=== PATIENT | male | born 1990 | race Caucasian/White ===

== ENCOUNTER 2020-03-14 18:26 | Emergency (ER) | payer OTHER, SELFPAY ==
[2020-03-14 18:36] VITALS: BP 159/91; PULSE 86; RESP 18; TEMP 37.1; O2SAT 98; BMI 32.0
--- NOTE | 2020-03-14 22:02 | ED.SKABFB ---
HPI - Skin/Abscess/Foreign Bdy General Chief complaint: Skin/Abscess/Foreign Body Stated complaint: abscess Time Seen by Provider: 03/14/20 22:02 Source: patient Mode of arrival: ambulatory Limitations: no limitations History of Present Illness HPI narrative: patient noticed small swelling in perineum area for last 5 days getting worse without significant redness or pus discharge history of pilonidal abscess in the past but never had any abscess in perineal area patient denies any fever MD complaint: abscess/boil Onset (ago): day(s) (5) Severity: mild Related Data Previous Rx's Medication Instructions Recorded amoxicillin-pot clavulanate 1 tab PO BID #20 tab 03/14/20 [Augmentin] doxycycline hyclate 100 mg PO BID #20 cap 03/14/20 ibuprofen 600 mg PO Q6-8H PRN #30 tab 03/14/20 Allergies Allergy/AdvReac Type Severity Reaction Status Date / Time diclofenac [DICLOFENAC] Allergy Unknown SHORTNESS Verified 03/14/20 18:39 OF BREATH Review of Systems Review of Systems: Yes all other systems are reviewed and are negative Constitutional: Constitutional: Reports no additional constitutional complaints, Denies body ache(s), Denies chills and Denies fever(s) PMFSH Past Medical History Medical History No known health problems Social History Social History Smoked in Last 30 Days: No Use of substances other than those prescribed or required for medical reasons: No Advance Directives: No Advance Directives Information Provided: No Physical Exam Vital Signs and I&O and Narrative: Vital Signs and I&O: Vital Signs Temp 98.8 F 03/14/20 18:36 Pulse 86 03/14/20 18:36 Resp 18 03/14/20 18:36 BP 159/91 H 03/14/20 18:36 Pulse Ox 98 03/14/20 18:36 Intake & Output 03/14/20 03/14/20 03/15/20 06:59 18:59 06:59 Weight 110 kg Body Mass Index 32.0 Const: General: cooperative Nutritional Appearance: average body habitus Orientation/consciousness: oriented to person, oriented to place and oriented to time Limitations: no limitations Resp: Effort & Inspection: normal respiratory effort Auscultation: clear to auscultation bilaterally Cardio: Rate: regular rate Rhythm: regular rhythm Heart sounds: S1 normal heart sound present and S2 normal heart sound present Skin: Other: small 1 x 1 cm indurated swelling in perineum area at the base of scrotum without any fluctuancy or open wounds Neuro: General: oriented to person, oriented to place and oriented to time Gait exam (Neuro): Normal gait present Course Course Course Narrative: patient with small indurated area in perineum not fluctuant at this time will give him course of p.o. antibiotic doxycycline and Augmentin ,advised to come back to the ER or follow-up with surgeon if pain continues or gets worse Discharge Plan Discharge Clinical Impression: Abscess of skin or subcutaneous tissue Patient Disposition: Home, Self-Care Instructions: Abscess (ED) Additional Instructions: take antibiotics as prescribed. Follow-up with surgeon. Report to ER if worsening of pain or swelling tome antibi?ticos seg?n lo prescrito. Seguimiento con cirujano. Informe a la justice de emergencias si el dolor o la hinchaz?n empeoran Prescriptions: New doxycycline hyclate 100 mg capsule 100 mg PO BID Qty: 20 RF: 0 amoxicillin-pot clavulanate [Augmentin] 875-125 mg tablet 1 tab PO BID Qty: 20 RF: 0 ibuprofen 600 mg tablet 600 mg PO Q6-8H PRN (Reason: pain) Qty: 30 RF: 0 Referrals: Francisco Myrick MD [Physician] - 2 days ( perineal abscess) Interventions: ED Discharge Assessment Last Done: 03/14/20 23:21 Discharge Date/Time: 03/14/20 22:15 Print Language: Belarusian
[2020-03-14] MEDS: Amoxicillin/Potassium Clav 875 MG TABLET PO (22:20)
[2020-03-14] MEDS: Ibuprofen 600 MG TABLET PO (22:20)
== END 2020-03-14 22:15 | disposition home or self-care (01) ==
PROVIDERS: Emergency Provider Internal Medicine; PCP Family Medicine
DX: L02.91 Cutaneous abscess, unspecified (principal)
CPT/HCPCS: 99283; 99284

== ENCOUNTER → 2020-03-16 14:46 | Outpatient (BNVA) | payer OTHER, SELFPAY | PROVIDERS: PCP Family Medicine; Visit Provider Surgery | DX: L02.215 Cutaneous abscess of perineum (principal) | CPT/HCPCS: 10060; 46050; 99203 ==

== ENCOUNTER 2020-05-13 08:19 | Outpatient (REF) | payer OTHER, SELFPAY ==
[2020-05-13 09:03] LABS: MANUAL DIFF FLAG NO
[2020-05-13 09:10] LABS: Basophils Absolute Auto 0.1 X10*3/uL (0.0-0.2); Basophils Percent Auto 0.7 % (0-2); Eosinophils Absolute Auto 0.2 X10*3/uL (0.0-0.4); Eosinophils Percent Auto 2.4 % (0-4); Hematocrit 48.5 % (42-52); Hemoglobin 15.8 g/dl (14.0-18.0); Imm Gran Abs Auto 0.04 X10*3/uL (0.00-0.03); Imm Gran Pct Auto 0.5 % (0.0-0.4); Lymphocytes Absolute Auto 2.6 X10*3/uL (1.2-4.9); Lymphocytes Percent Auto 32.7 % (20-40); Mean Corpuscular HGB Conc 32.6 g/dl (31.0-36.0); Mean Corpuscular Hemoglobin 28.8 pg (27.0-33.0); Mean Corpuscular Volume 88.5 fL (80-98); Mean Platelet Volume 11.4 fL (9.4-12.4); Monocytes Absolute Auto 0.4 X10*3/uL (0.1-1.2); Neutrophils Absolute Auto 4.7 X10*3/uL (2.0-8.3); Neutrophils Percent Auto 58.7 % (45-73); Platelet Count 268 X10*3/uL (160-400); Red Blood Count 5.48 X10*6/uL (4.60-5.80); Red Cell Distribution Width 12.5 % (11.0-16.0)
[2020-05-13 09:11] LABS: Estimated Average Glucose 114 mg/dL; Hemoglobin A1C 151.5261 umol/L; Hemoglobin A1c % 5.6 %
[2020-05-13 09:32] LABS: Alanine Aminotransferase 83 U/L (0-40); Albumin Level 4.8 g/dL (3.5-5.0); Alkaline Phosphatase 74 U/L (39-117); Anion Gap 13 (12-20); Aspartate Amino Transferase 27 U/L (5-37); Bilirubin Total 0.9 mg/dL (0.0-1.0); Blood Urea Nitrogen 17 mg/dL (9-16); Calcium 9.6 mg/dL (8.4-10.2); Carbon Dioxide 28 mmol/L (22-29); Chloride 102 mmol/L (96-108); Cholesterol 247 mg/dL; Estimated Glomerular Filt Rate > 60; Glucose Fasting 106 mg/dL (60-99); HDL Cholesterol 35 mg/dL; LDL Cholesterol Calculated 186 mg/dl; Potassium 4.5 mmol/l (3.3-5.1); Sodium 138 mmol/L (135-145); Total Protein 8.4 g/dL (6.5-8.0); Triglycerides 130 mg/dL
[2020-05-13 09:52] LABS: TSH reflex Free T4 3.28 mIU/mL (0.32-4.0)
[2020-05-15 08:06] LABS: HBsAGNum1 0.63 S/CO (0.00-0.99); Hepatitis B Surface Antigen Negative (Negative)
[2020-05-15 08:25] LABS: HIV AB/AG Nonreactive (Nonreactive); HIV Num 1 0.26 S/CO (0.00-0.99); ~Hepatitis C Antibody Nonreactive (Nonreactive)
[2020-05-15 08:51] LABS: Syphilis Screen Nonreactive (Nonreactive)
[2020-05-19 14:27] LABS: CT PCR NOT DETECTED (Not Detect.); NG PCR NOT DETECTED (Not Detect.)
== END 2020-05-13 08:20 | disposition home or self-care (01) ==
LOC: HO.LAB 08:19
PROVIDERS: PCP Family Medicine; Visit Provider Family Medicine
DX: E66.3 Overweight (principal); R06.00 Dyspnea, unspecified; R07.9 Chest pain, unspecified
CPT/HCPCS: 36415; 80053; 80061; 83036; 84443; 85025; 86780; 86803; 87340; 87389; 87491; 87591

== ENCOUNTER 2020-05-30 09:54 | Outpatient (REF) | payer OTHER, SELFPAY ==
--- NOTE | 2020-05-30 | PFT_ITS ---
Forced vital capacity, FEV1, [id number], and MVV are all normal. Post bronchodilator therapy, no significant changes noted. Total lung capacity normal. Residual volume is slightly decreased. Diffusion capacity normal. CONCLUSION: Normal pulmonary function test, no evidence of obstructive or restrictive pulmonary disorder. Sarah Molina MD MSB/MODL / [id number]
== END 2020-05-30 09:55 | disposition home or self-care (01) ==
LOC: HO.RESP 09:54
PROVIDERS: PCP Family Medicine; Visit Provider Family Medicine
DX: R06.00 Dyspnea, unspecified (principal); R07.9 Chest pain, unspecified
CPT/HCPCS: 94060; 94727; 94729

== ENCOUNTER 2020-06-05 08:06 | Outpatient (REF) | payer OTHER, SELFPAY | END 2020-06-05 08:07 | disposition home or self-care (01) | LOC: HO.LAB 08:06 | PROVIDERS: Visit Provider Internal Medicine | DX: Z20.828 Contact with and (suspected) exposure to other viral communicable diseases (principal) | CPT/HCPCS: C9803; U0003 ==

== ENCOUNTER → 2020-08-07 09:10 | Outpatient (REF) | payer BC, SELFPAY ==
--- NOTE | 2020-08-07 09:20 | CA_ITS ---
Transthoracic Echocardiogram Patient (Last, First, Middle): Kobe Norton D Gender: Male Date of : 1990 Age: 29 Procedure Date: 08/07/2020 Procedure Type: Transthoracic Echocardiogram Location: OP Height: 185.42 cm Weight: 97.52 kg BSA: 2.22 m2 Heart Rate: bpm BP: 118 / 80 mmHg Clay Puddler: MADIHA Referring MD: Kandi Navarrete MD Symptoms: I45.9 CONDUCTIVE DISORDER, Z87.09 PER HX DISEASE OF RESP SYS Study Quality: Good ECG Rhythm: Sinus Conclusions: - The left ventricular systolic function is normal. The visually estimated ejection fraction is between 55-60%. - No obvious valvular pathology seen on this study. Findings Left Ventricle Normal left ventricular cavity size. There is normal left ventricular wall thickness. The left ventricular systolic function is normal. The visually estimated ejection fraction is between 55-60%. There is no evidence of regional wall motion abnormalities. Diastolic function is normal for age. Right Ventricle Normal right ventricular cavity size and systolic function. Atria The left atrium is normal in size. The right atrium is normal in size. Aortic Valve There is a normal trileaflet aortic valve. There is no aortic valve stenosis. There is no aortic valve regurgitation. Mitral Valve The mitral valve appears normal. There is trace mitral valve regurgitation. There is no mitral valve stenosis. Pulmonic Valve The pulmonic valve was not well visualized. Tricuspid Valve Normal tricuspid valve structure. There is mild tricuspid valve regurgitation. The pulmonary artery systolic pressure is normal. Great Vessels The aortic annulus, sinuses of valsalva, asc aorta, and aortic arch are normal in size. Venous The inferior vena cava is normal in size and collapses greater than 50% with inspiration. Pericardium/Pleural There is no evidence of pericardial effusion. Prior Study Comparison No prior study available for comparison. Recommendations, Care & Conclusions No obvious valvular pathology seen on this study. Measurements 2D Linear Measurements IVSd: 0.84 0.6-0.9/0.6-1.0 cm LVIDd: 5.83 3.9-5.3/4.2-5.9 cm LVIDd Index: 2.63 2.4-3.2/2.2-3.1 cm/m2 LVIDs: 3.78 2.0-3.6 cm LVPWd: 0.88 0.7-1.1 cm Ao Root: 3.00 2.1-3.5 cm LA Diam: 4.00 2.7-3.8/3.0-4.0 cm LAIDs Index: 1.80 1.5-2.3 cm/m2 LV Mass: 241.86 67-162/88-224 g LV Mass Index: 108.95 43-95/49-115 g/m2 LVOT Diam: 2.20 3.0+(-)1.3 cm 2D Systolic Function EF 4C: 55.10 >55% EF 2C: 54.80 >55% EF BiP: 55.70 >55% Mitral Valve MV Pk E: 0.83 MV PK A: 0.74 MV Decel Time: 299.00 E/A: 1.10 E'Lateral: 11.30 E'Medial: 7.83 E/E' Med: 10.50 E/E' Lat: 7.30 PHT: 88.00 MVA PHT: 2.50 Decel Eagle: 2.76 Aortic Valve AoV Pk Demarcus: 1.36 AoV Mn Demarcus: 0.97 AoV VTI: 0.28 AoV Pk Grad: 7.00 Aov Mn Grad: 4.00 BARBARA Cont.VTI: 2.81 LVOT LVOT Pk Demarcus: 1.06 LVOT Mn Demarcus: 0.70 LVOT VTI: 0.21 LVOT Pk Grad: 4.00 LVOT Mn Grad: 2.00 LVOT Diam: 2.20 LVOT Area: 3.80 Diastolic Function MV Pk E: 0.83 MV Pk A: 0.74 E/A: 1.10 E'Medial: 7.83 E/E' Med: 10.50 E' Laterial: 11.30 E/E' Lat: 7.30 Tricuspid Valve TR Pk Demarcus: 2.32 TR Pk Grad: 22.00 RA Press: 3.00 RVSP: 25.00 Great Vessels Aorta Ao Root-2D: 3.00 2.0-3.7 cm Ao Asc: 2.90 2.1-3.4 cm Ao Arch: 2.60 Updated in Other Vendor System with Status of Final Cheo Donaldson MD electronically signed on 08/07/2020 10:36:53 AM with status of Final
== END ==
LOC: HO.CARD 09:10
PROVIDERS: Visit Provider Family Medicine
DX: I45.9 Conduction disorder, unspecified (principal); Z87.09 Personal history of other diseases of the respiratory system
CPT/HCPCS: 93306

== ENCOUNTER 2020-08-16 19:47 | Emergency (ER) | payer BC, SELFPAY ==
[2020-08-16 20:56] VITALS: BP 154/94; PULSE 82; RESP 16; TEMP 37.8; O2SAT 98; BMI 28.8
--- NOTE | 2020-08-16 21:07 | ED.SOB ---
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 Patient also endorses that he was diagnosed with COVID-19 positivity on 08/15/2020. He denies any significant past medical history. Related Data Home Medications Medication Instructions Recorded Confirmed loratadine 10 mg tablet 10 mg PO DAILY 03/16/20 omeprazole 20 mg capsule,delayed 20 mg PO DAILY 03/16/20 release Previous Rx's Medication Instructions Recorded amoxicillin-pot clavulanate 1 tab PO BID #20 tab 03/14/20 [Augmentin] doxycycline hyclate 100 mg PO BID #20 cap 03/14/20 ibuprofen 600 mg PO Q6-8H PRN #30 tab 03/14/20 Allergies Allergy/AdvReac Type Severity Reaction Status Date / Time diclofenac [DICLOFENAC] Allergy Unknown SHORTNESS Verified 08/16/20 20:56 OF BREATH Review of Systems Review of Systems: Pertinent positives and negatives as stated in HPI 10 point review systems is otherwise negative. FORMERLY [facility], [facility] Past Medical History Source: nursing notes reviewed Medical History No known health problems Surgical History Perineal abscess Family History Family History Mother History of thyroid cancer History of hypertension History of diabetes mellitus Social History Social History Alcohol intake: current Alcohol intake frequency: holidays/special occasions only Alcohol type: beer and wine Smoking Status: Never smoker Advance Directives: No Advance Directives Information Provided: No Physical Exam Vital Signs: Vital Signs: Last Vital Signs Temp 100.1 F 08/16/20 20:56 Pulse 82 08/16/20 20:56 Resp 16 08/16/20 20:56 BP 154/94 H 08/16/20 20:56 Pulse Ox 98 08/16/20 20:56 Body Mass Index 28.8 VITAL SIGNS: Reviewed. GENERAL: Well developed, well nourished, in no acute distress. HEAD: Normocephalic/atraumatic, EYES: PERRLA, EOMI EARS: Ext canals without abnormality, TMs non-bulging and non-erythematous NOSE: Nares patent bilateral OROPHARYNX: no oral lesions noted, posterior pharynx clear and non-erythematous without noted tonsillar enlargement/erythema/exudates NECK: Supple, no adenopathy LUNGS: Normal breath sounds. No adventitious sounds or accessory muscle use, no increased work of breathing, no retractions, no tachypnea SpO2<98> CARDIOVASCULAR: Regular rate and rhythm without noted murmurs ABDOMEN: Soft, non-tender, non-distended with bowel sounds. SKIN: Inspection of the skin reveals no rashes NEUROLOGIC: Alert and oriented x 4. Course Course Course Narrative: A 29-year-old male with history and clinical presentation consistent with COVID-19 viral syndrome and no evidence of tachypnea, tachycardia, hypoxia, or increased work of breathing while here in the emergency department patient was reassured and given expectant counseling regarding course of recovery. He was then discharged in stable condition. Discharge Plan Discharge Clinical Impression: COVID-19 virus infection Patient Disposition: Home, Self-Care Instructions: COVID-19 (Coronavirus Disease 2019) (ED) Additional Instructions: Debe cumplir con todas las pautas y regulaciones del estado de [place] con respecto a la infecci?n por COVID-19. 1. Tylenol 1000 mg, por v?a oral, cada 6 horas seg?n sea necesario para seble corporales y temperaturas superiores a 100,4?C. No exceda los 4000 mg en 24 horas. 2. Ibuprofeno 400 mg, por v?a oral con leche o alimentos, cada 6 horas seg?n sea necesario para los seble corporales y temperaturas superiores a 100,4?C. 3. Recomiende un supresor de la tos de venta napoleon y ?selo chris se indica en el empaque exterior. 4. Recomiende el uso de un vaporizador de radha fr?a chloe la noche junto a la cama para un control adicional de los s?ntomas. 5. Lauren un seguimiento con barreto proveedor de atenci?n primaria en los pr?ximos 2-3 d?as. No dude en volver al servicio de urgencias por un empeoramiento rigo de jorge s?ntomas. Prescriptions: No Action doxycycline hyclate 100 mg capsule 100 mg PO BID Qty: 20 RF: 0 amoxicillin-pot clavulanate [Augmentin] 875-125 mg tablet 1 tab PO BID Qty: 20 RF: 0 ibuprofen 600 mg tablet 600 mg PO Q6-8H PRN (Reason: pain) Qty: 30 RF: 0 Referrals: Kandi Navarrete MD [Primary Care Provider] - 2 days (For re-evaluation as appropriate for COVID-19 infection.) Interventions: ED Discharge Assessment Last Done: 08/16/20 22:06 Discharge Date/Time: 08/16/20 22:06 Print Language: Bulgarian
== END 2020-08-16 22:06 | disposition home or self-care (01) ==
PROVIDERS: Emergency Provider Student in an Organized Health Care Education/Training Program; PCP Family Medicine
DX: U07.1 COVID-19 (principal); R06.00 Dyspnea, unspecified; Z79.899 Other long term (current) drug therapy
CPT/HCPCS: 99283

== ENCOUNTER 2021-01-09 06:23 | Outpatient (REF) | payer OTHER, SELFPAY ==
[2021-01-09 06:54] LABS: MANUAL DIFF FLAG NO
[2021-01-09 07:00] LABS: Basophils Absolute Auto 0.1 X10*3/uL (0.0-0.2); Basophils Percent Auto 0.9 % (0-2); Eosinophils Absolute Auto 0.6 X10*3/uL (0.0-0.4); Eosinophils Percent Auto 6.5 % (0-4); Hematocrit 46.7 % (42-52); Hemoglobin 15.3 g/dl (14.0-18.0); Imm Gran Abs Auto 0.04 X10*3/uL (0.00-0.03); Imm Gran Pct Auto 0.4 % (0.0-0.4); Lymphocytes Absolute Auto 2.4 X10*3/uL (1.2-4.9); Lymphocytes Percent Auto 23.7 % (20-40); Mean Corpuscular HGB Conc 32.8 g/dl (31.0-36.0); Mean Corpuscular Hemoglobin 28.4 pg (27.0-33.0); Mean Corpuscular Volume 86.8 fL (80-98); Mean Platelet Volume 11.3 fL (9.4-12.4); Monocytes Absolute Auto 0.7 X10*3/uL (0.1-1.2); Neutrophils Absolute Auto 6.1 X10*3/uL (2.0-8.3); Neutrophils Percent Auto 61.5 % (45-73); Platelet Count 249 X10*3/uL (160-400); Red Blood Count 5.38 X10*6/uL (4.60-5.80); Red Cell Distribution Width 12.3 % (11.0-16.0); White Blood Count 9.9 X10*3/uL (4.8-10.8)
[2021-01-09 07:04] LABS: Estimated Average Glucose 108 mg/dL; Hemoglobin A1c % 5.4 %
[2021-01-09 07:19] LABS: Alanine Aminotransferase 29 U/L (0-40); Albumin Level 4.5 g/dL (3.5-5.0); Alkaline Phosphatase 73 U/L (39-117); Anion Gap 14 (12-20); Aspartate Amino Transferase 19 U/L (5-37); Bilirubin Total 0.5 mg/dL (0.0-1.0); Blood Urea Nitrogen 20 mg/dL (9-16); Calcium 9.5 mg/dL (8.4-10.2); Carbon Dioxide 25 mmol/L (22-29); Chloride 105 mmol/L (96-108); Cholesterol 220 mg/dL; Estimated Glomerular Filt Rate > 60; Glucose Fasting 100 mg/dL (60-99); HDL Cholesterol 33 mg/dL; LDL Cholesterol Calculated 160 mg/dl; Potassium 4.2 mmol/L (3.3-5.1); Sodium 140 mmol/L (135-145); Total Protein 7.8 g/dL (6.5-8.0); Triglycerides 136 mg/dL
[2021-01-09 07:34] LABS: Glucose Urine UA NEG (NEG); Leukocyte Esterase Urine NEG (NEG); Nitrite Urine NEG (NEG); Specific Gravity - Urine >= 1.030 (1.005-1.025); Urine Blood NEG (NEG); Urine Ketones NEG (NEG); Urine Protein TRACE MG/DL (NEG-TRACE)
[2021-01-09 07:35] LABS: Appearance Urine CLEAR; Color Urine YELLOW
[2021-01-09 07:39] LABS: TSH reflex Free T4 5.37 uIU/mL (0.32-4.0)
[2021-01-09 09:33] LABS: Free T4 (Free Thyroxine) 1.02 ng/dL (0.71-1.85)
== END 2021-01-09 06:24 | disposition home or self-care (01) ==
LOC: HO.LAB 06:23
PROVIDERS: PCP Internal Medicine; Visit Provider Internal Medicine
DX: R73.01 Impaired fasting glucose (principal); E78.00 Pure hypercholesterolemia, unspecified; I10 Essential (primary) hypertension
CPT/HCPCS: 36415; 80053; 80061; 81003; 83036; 84439; 84443; 85025

== ENCOUNTER → 2021-02-07 15:19 | Outpatient (BNVA) | payer OTHER, SELFPAY | PROVIDERS: PCP Internal Medicine; Visit Provider Internal Medicine Pulmonary Disease ==

== ENCOUNTER 2021-04-30 17:56 | Emergency (ER) | payer OTHER, SELFPAY | END 2021-04-30 19:05 | disposition left against medical advice (07) | PROVIDERS: Emergency Provider Emergency Medicine; PCP Internal Medicine | DX: J02.9 Acute pharyngitis, unspecified (principal) ==

== ENCOUNTER → 2021-05-01 15:17 | Outpatient (BNVA) | payer OTHER, SELFPAY | PROVIDERS: PCP Internal Medicine; Visit Provider Internal Medicine Pulmonary Disease ==

== ENCOUNTER 2021-05-31 14:01 | Outpatient (REF) | payer OTHER, SELFPAY | END 2021-05-31 14:02 | disposition home or self-care (01) | LOC: HO.LAB 14:01 | PROVIDERS: Visit Provider Internal Medicine | DX: Z20.822 Contact with and (suspected) exposure to COVID-19 (principal) | CPT/HCPCS: C9803; U0003; U0005 ==

== ENCOUNTER 2021-08-01 10:07 | Emergency (ER) | payer OTHER, SELFPAY ==
--- NOTE | ~2021-08-01 | XR_ITS ---
EXAMINATION: XR CHEST CLINICAL INFORMATION: Cough and shortness of breath. Nasal congestion and sore throat. COMPARISON: Previous chest x-ray June 2017. TECHNIQUE: 2 views of the chest were obtained. FINDINGS: No significant abnormality is noted involving the heart, lungs, mediastinum, bony thorax or soft tissues. XR/XR chest 2V IMPRESSION: Unremarkable examination.
[2021-08-01 10:16] VITALS: BP 148/88; PULSE 66; RESP 18; TEMP 37.1; O2SAT 96; BMI 28.8
[2021-08-01 11:06] LABS: Influenza A Negative (Negative); Influenza B2 Negative (Negative)
[2021-08-01 11:07] LABS: IDNOW Serial# 08D9AD1C; Strep A Nucleic Acid Negative (Negative)
[2021-08-01 11:08] LABS: COVID-19 Test Negative (Negative); IDNOW Serial# 55D5AD1C
--- NOTE | 2021-08-01 11:26 | ED_ITS ---
HPI - URI/Sore Throat General Chief Complaint: General Medical Stated Complaint: Cold symptoms/Chest pain Time Seen by Provider: 08/01/21 10:27 Source: patient Mode of arrival: ambulatory Limitations: language barrier (Citizen [place]-speaking) History of Present Illness HPI Narrative: 30-year-old male with a past medical history of COVID-19 in August of 2019, environmental allergies, allergic rhinitis, hypercholesterolemia, overweight, exercise induced laryngeal obstruction, anxiety, elevated LFTs impaired fasting glucose presenting to the ED with complaints of nasal congestion/rhinorrhea with a sore throat and intermittent cough with shortness of breath for the past 2 days worse today. Reports that he is vaccinated to COVID with his booster. Reports he is not vaccinated to the flu. Denies any measured fevers, dizziness, headaches, neck pain/stiffness, trouble swallowing or breathing, chest pain, dyspnea exertion, orthopnea, palpitations, paresthesias, nausea/vomiting/diarrhea constipation, abdominal pain, lower extremity edema or calf tenderness, recent travel or sick contacts, weakness or any other symptoms complaints or concerns at this time. MD elicited complaint: cough, sore throat, rhinorrhea and nasal congestion Onset (ago): day(s) (2) Consistency: constant and progressively worsening Severity: mild Description of mucous: clear, watery and yellow Able to tolerate fluids by mouth: Yes Exacerbating factors: swallowing and deep breaths Relieving factors: nothing Associated symptoms: rhinorrhea, nasal congestion, sore throat and cough Treatments prior to arrival: none Related Data Home Medications Medication Instructions Recorded Confirmed valacyclovir 500 mg tablet 500 mg PO BID 01/08/21 05/12/21 Previous Rx's Medication Instructions Recorded ibuprofen 600 mg tablet 600 mg PO Q6-8H PRN #30 tab 03/14/20 fluticasone propionate 50 1 spray INTRANASAL DAILY PRN 30 01/10/21 mcg/actuation nasal Days #16 g spray,suspension loratadine 10 mg tablet 10 mg PO DAILY PRN 90 Days #90 tab 01/10/21 omeprazole 20 mg capsule,delayed 20 mg PO DAILY 90 Days #90 cap 01/10/21 release albuterol sulfate 90 mcg/actuation 1 inh INHALATION Q4-6H PRN #1 ea 04/30/21 breath activated powder inhaler sertraline 50 mg tablet 50 mg PO DAILY 30 Days #30 tab 05/11/21 azithromycin 250 mg tablet See Rx Instructions PO .COMPLEX #6 08/01/21 tab prednisone 20 mg tablet 20 mg PO DAILY 5 Days #5 tab 08/01/21 Allergies Allergy/AdvReac Type Severity Reaction Status Date / Time diclofenac [DICLOFENAC] Allergy Unknown SHORTNESS Verified 05/12/21 05:42 OF BREATH Review of Systems Review of Systems: Constitutional : No Weight loss, No Fever, No Chills, No Night Sweats, No Fatigue, No Malaise ENT/Mouth : Positive nasal congestion/rhinorrhea and a sore throat, No Hearing loss, No Ear Pain, No Sinus Pain, No Hoarseness, No Swallowing Difficulty Eyes: No Eye Pain, No Swelling, No Redness, No Foreign Body, No Discharge, No Vision Changes Cardiovascular : No Chest Pain, No Dyspnea on Exertion, No Orthopnea, No Edema, No Palpitations Respiratory : Positive intermittent cough with shortness of breath, No Sputum, No Wheezing, No Smoke Exposure Gastrointestinal : No Nausea, No Vomiting, No Diarrhea, No Constipation, No abdominal Pain, No Hematochezia, No Melena Genitourinary : no irregular bleeding, No Dysuria, No Urinary Frequency, No Hematuria, No Urinary Incontinence, No Urgency, No Flank Pain, No Urinary Flow Changes, No Hesitancy Musculoskeletal : No joint pain, No Myalgias, No Joint Swelling Skin : No Skin Lesions, No rash Neuro : No Weakness, No Numbness, No Paresthesias, No Loss of Consciousness, No Dizziness, No Headache Psych : No Anxiety/Panic, No Depression, No SI/HI/AH/VH, No Social Issues, Heme/Lymph: No Bruising, No Bleeding,No Lymphadenopathy Endocrine : No Polyuria, No Polydipsia, No Temperature Intolerance Yes all other systems are reviewed and are negative [facility] Past Medical History Attestation statement: The following information was validated with the patient. Medical History Allergic rhinitis Elevated LFTs Environmental allergies Exertional dyspnea GERD without esophagitis Impaired fasting glucose No known health problems Overweight (BMI 25.0-29.9) Pure hypercholesterolemia Surgical History Perineal abscess Family History Family History Mother History of thyroid cancer History of hypertension History of diabetes mellitus Social History Social History Housing: House Alcohol intake: current Alcohol intake frequency: holidays/special occasions only Alcohol type: beer and wine Patient Tobacco Use Status: Former Tobacco user Second Hand Smoke Exposure: Yes Advance Directives: No Advance Directives Information Provided: No service: No Current occupational status: employed 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 Blood pressure normal. Heart rate normal. Respiration rate normal. Temperature normal. Oxygen saturation normal. Appearance: Alert. Oriented X3. No acute distress. Head: Normal external exam. Normocephalic. Atraumatic. Eyes: PERRLA. EOMI. Conjunctiva and sclera normal. Eyelids normal. ENT: EAC normal. TM's Normal. No septal hematoma noted. No hemotympanum noted. Posterior pharynx mildly erythematous. No exudate is noted. Uvula midline. Moist mucous membranes. No lesions/ulcerations or masses noted on the tongue. Normal voice. No trismus noted. No drooling noted. No muffled voice noted. Neck: Normal inspection. Neck supple. FROM. No adenopathy. Thyroid Normal. No tracheal deviation noted. No crepitus is noted. No meningeal signs. No neck mass noted. No signs of trauma noted. CVS: Normal heart rate and rhythm. Heart sound normal. Pulses normal throughout. No murmurs/rales/gallops. Respiratory: No respiratory distress. Painless inspiration. Breath sounds normal. No wheezes/rales/rhonchi noted. Chest nontender. No crepitus is noted. No signs of trauma noted. No accessory muscle usage noted or decreased air movement noted. No signs of trauma. Abdomen: Soft and nontender. Bowel sounds normal in all 4 quadrants. No distention noted. No organomegaly noted. No visible injury noted. Back: No CVA tenderness. Full range of motion noted. Nontender. No signs of trauma. Patient neuro intact bilaterally and distally on all 4 extremities. Patient's reflexes intact bilaterally and distally on all 4 extremities. No rashes/lesion/induration/fluctuance or signs of infection noted. Skin: Skin warm and dry. Normal skin color. Normal skin turgor. No rashes/lesions/lacerations noted. Extremities: No lower extremity edema. No calf tenderness is noted. Extremities exhibit normal range of motion and nontender. Neuro: Oriented X 3. No motor deficit. No sensory deficit. Reflexes normal. Normal steady gait. No focal neuro deficits noted. CN's II-XII intact bilaterally? Vascular: + radial pulses/+ 2 distal pedal pulses/+2 dorsalis pedis b/l. Normal cap refill. No cyanosis noted to upper extremity nails and lower extremity t oes nails. Course Course Course Narrative: 30-year-old male with a past medical history of COVID-19 in August of 2019, environmental allergies, allergic rhinitis, hypercholesterolemia, overweight, exercise induced laryngeal obstruction, anxiety, elevated LFTs impaired fasting glucose presenting to the ED with complaints of nasal congestion/rhinorrhea with a sore throat and intermittent cough with shortness of breath for the past 2 days worse today. Reports that he is vaccinated to COVID with his booster. Reports he is not vaccinated to the flu. Denies any measured fevers, dizziness, headaches, neck pain/stiffness, trouble swallowing or breathing, chest pain, dyspnea exertion, orthopnea, palpitations, paresthesias, nausea/vomiting/diarrhea constipation, abdominal pain, lower extremity edema or calf tenderness, recent travel or sick contacts, weakness or any other symptoms complaints or concerns at this time. Patient negative for COVID/flu/strep. Obtain a chest x-ray although lungs clear to auscultation. Therefore if chest x-ray is negative patient most likely viral syndrome/bronchitis. Will DC home with symptomatic treatments and to self isolate per CDC guidelines and to return if any new or worsening symptoms to follow up with primary care provider. Patient understands agrees with this plan. MDM - URI/Sore Throat Medical Records Attestation: I reviewed the patient's medical records. Lab Data Attestation: I reviewed the patient's lab results. Labs: Lab Results 08/01/21 08/01/21 08/01/21 Range/Units 10:35 10:35 10:35 COVID-19 (RYDER) Negative (Negative) COVID-19 Clin Com See Note Influenza Type A ([facility]) Negative (Negative) Influenza Type B ([facility]) Negative (Negative) Influenza A & B Note See Note S. pyogenes GrpA [facility]A Negative (Negative) Imaging Data Chest x-ray: Attestation: I personally reviewed and interpreted this imaging study as follows: Radiologist's impression: FINDINGS: No significant abnormality is noted involving the heart, lungs, mediastinum, bony thorax or soft tissues. XR/XR chest 2V IMPRESSION: Unremarkable examination. Discharge Plan Discharge Clinical Impression: Acute viral syndrome Patient Disposition: Home, Self-Care Instructions: Viral Syndrome (ED) Prescriptions: New azithromycin 250 mg tablet See Rx Instructions PO .COMPLEX Qty: 6 0RF Rx Instructions: take 500 mg today (day 1), then 250 mg for 4 days (days 2-5) prednisone 20 mg tablet 20 mg PO DAILY 5 Days Qty: 5 0RF No Action ibuprofen 600 mg tablet 600 mg PO Q6-8H PRN (Reason: pain) Qty: 30 0RF sertraline 50 mg tablet 50 mg PO DAILY 30 Days Qty: 30 2RF valacyclovir 500 mg tablet 500 mg PO BID 0RF loratadine 10 mg tablet 10 mg PO DAILY PRN (Reason: allergy symptoms) 90 Days Qty: 90 1RF omeprazole 20 mg capsule,delayed release(DR/EC) 20 mg PO DAILY 90 Days Qty: 90 1RF fluticasone propionate 50 mcg/actuation spray,suspension 1 spray intranasal DAILY PRN (Reason: allergy symptoms) 30 Days Qty: 16 5RF albuterol sulfate 90 mcg/actuation aerosol powdr breath activated 1 inh inhalation Q4-6H PRN (Reason: shortness of breath or wheezing) Qty: 1 0RF Referrals: Dayton Siegel MD [Primary Care Provider] - 2 days Stand Alone Forms: Work/School Release Print Language: Citizen [place]
[2021-08-01] MEDS: Albuterol Sulfate 90 MCG 8 GM INHALER 2 PUFF INHALE (11:49)
[2021-08-01 11:51] VITALS: PULSE 64; RESP 16; O2SAT 96
== END 2021-08-01 11:55 | disposition home or self-care (01) ==
PROVIDERS: Physician Assistant Medical; Emergency Provider Emergency Medicine; PCP Internal Medicine
DX: B34.9 Viral infection, unspecified (principal); Z20.822 Contact with and (suspected) exposure to COVID-19; J02.9 Acute pharyngitis, unspecified
CPT/HCPCS: 71046; 87502; 87635; 87651; 99283; 99284

== ENCOUNTER 2021-08-25 08:18 | Outpatient (REF) | payer OTHER, SELFPAY ==
[2021-08-25 08:59] LABS: MANUAL DIFF FLAG NO
[2021-08-25 09:35] LABS: Basophils Absolute Auto 0.1 X10*3/uL (0.0-0.2); Basophils Percent Auto 1.1 % (0-2); Eosinophils Absolute Auto 0.3 X10*3/uL (0.0-0.4); Eosinophils Percent Auto 3.9 % (0-4); Hematocrit 43.8 % (42.0-52.0); Hemoglobin 14.2 g/dl (14.0-18.0); Imm Gran Abs Auto 0.02 X10*3/uL (0.00-0.03); Imm Gran Pct Auto 0.3 % (0.0-0.4); Lymphocytes Absolute Auto 2.6 X10*3/uL (1.2-4.9); Lymphocytes Percent Auto 40.9 % (20-40); Mean Corpuscular HGB Conc 32.4 g/dl (31.0-36.0); Mean Corpuscular Hemoglobin 28.5 pg (27.0-33.0); Monocytes Absolute Auto 0.4 X10*3/uL (0.1-1.2); Monocytes Percent Auto 6.1 % (2-11); Neutrophils Absolute Auto 3.1 x10*3/uL (2.0-8.3); Neutrophils Percent Auto 47.7 % (45-73); Platelet Count 272 X10*3/uL (160-400); Red Blood Count 4.98 X10*6/uL (4.60-5.80); Red Cell Distribution Width 12.5 % (11.0-16.0); White Blood Count 6.4 X10*3/uL (4.8-10.8)
[2021-08-25 09:37] LABS: Appearance Urine CLEAR; Color Urine YELLOW; Glucose Urine UA NEG (NEG); Leukocyte Esterase Urine NEG (NEG); Nitrite Urine NEG (NEG); PH 5.5 (5.0-8.0); Specific Gravity - Urine 1.025 (1.005-1.025); Urine Blood NEG (NEG); Urine Ketones NEG (NEG); Urine Protein NEG (NEG-TRACE)
[2021-08-25 09:55] LABS: Alanine Aminotransferase 67 U/L (0-40); Albumin Level 4.2 g/dL (3.5-5.0); Alkaline Phosphatase 67 U/L (39-117); Anion Gap 13 (12-20); Aspartate Amino Transferase 27 U/L (5-37); Bilirubin Total 0.8 mg/dL (0.0-1.0); Blood Urea Nitrogen 13 mg/dL (9-16); Calcium 9.4 mg/dL (8.4-10.2); Carbon Dioxide 25 mmol/L (22-29); Chloride 106 mmol/L (96-108); Cholesterol 217 mg/dL; Estimated Glomerular Filt Rate > 60; Glucose Fasting 96 mg/dL (60-99); HDL Cholesterol 34 mg/dL; LDL Cholesterol Calculated 157 mg/dl; Potassium 4.4 mmol/L (3.3-5.1); Sodium 140 mmol/L (135-145); Total Protein 7.3 g/dL (6.5-8.0); Triglycerides 131 mg/dL
[2021-08-25 10:18] LABS: TSH reflex Free T4 1.88 uIU/mL (0.32-4.0); Vitamin D 25-OH Total 15.8 ng/mL (>30)
== END 2021-08-25 08:19 | disposition home or self-care (01) ==
LOC: HO.LAB 08:18
PROVIDERS: PCP Internal Medicine; Visit Provider Internal Medicine
DX: I10 Essential (primary) hypertension (principal); E78.00 Pure hypercholesterolemia, unspecified; E55.9 Vitamin D deficiency, unspecified
CPT/HCPCS: 36415; 80053; 80061; 81003; 82306; 84443; 85025

== ENCOUNTER 2022-03-04 09:36 | Outpatient (REF) | payer OTHER, SELFPAY ==
[2022-03-04 09:49] LABS: MANUAL DIFF FLAG NO
[2022-03-04 10:07] LABS: Basophils Absolute Auto 0.1 X10*3/uL (0.0-0.2); Basophils Percent Auto 1.4 % (0-2); Eosinophils Absolute Auto 0.2 X10*3/uL (0.0-0.4); Eosinophils Percent Auto 3.2 % (0-4); Hematocrit 45.5 % (42.0-52.0); Hemoglobin 14.8 g/dl (14.0-18.0); Imm Gran Abs Auto 0.03 X10*3/uL (0.00-0.03); Imm Gran Pct Auto 0.5 % (0.0-0.4); Lymphocytes Absolute Auto 2.3 X10*3/uL (1.2-4.9); Lymphocytes Percent Auto 34.9 % (20-40); Mean Corpuscular HGB Conc 32.5 g/dl (31.0-36.0); Mean Corpuscular Hemoglobin 28.8 pg (27.0-33.0); Mean Corpuscular Volume 88.5 fL (80.0-98.0); Mean Platelet Volume 11.8 fL (9.4-12.4); Monocytes Absolute Auto 0.3 X10*3/uL (0.1-1.2); Monocytes Percent Auto 4.9 % (2-11); Neutrophils Absolute Auto 3.6 x10*3/uL (2.0-8.3); Neutrophils Percent Auto 55.1 % (45-73); Platelet Count 235 X10*3/uL (160-400); Red Blood Count 5.14 X10*6/uL (4.60-5.80); Red Cell Distribution Width 12.3 % (11.0-16.0); White Blood Count 6.6 X10*3/uL (4.8-10.8)
[2022-03-04 10:27] LABS: Alanine Aminotransferase 31 U/L (0-40); Albumin Level 4.6 g/dL (3.5-5.0); Alkaline Phosphatase 67 U/L (39-117); Anion Gap 13 (12-20); Aspartate Amino Transferase 19 U/L (5-37); Bilirubin Total 0.5 mg/dL (0.0-1.0); Blood Urea Nitrogen 17 mg/dL (9-16); Calcium 9.6 mg/dL (8.4-10.2); Carbon Dioxide 28 mmol/L (22-29); Chloride 104 mmol/L (96-108); Cholesterol 216 mg/dL; Estimated Glomerular Filt Rate > 60; Glucose Fasting 107 mg/dL (60-99); HDL Cholesterol 35 mg/dL; LDL Cholesterol Calculated 153 mg/dl; Potassium 4.4 mmol/L (3.3-5.1); Sodium 141 mmol/L (135-145); Total Protein 7.8 g/dL (6.5-8.0); Triglycerides 140 mg/dL
[2022-03-04 10:47] LABS: Appearance Urine Clear; Color Urine Yellow; Glucose Urine UA Negative (Negative); Leukocyte Esterase Urine Negative (Negative); Nitrite Urine Negative (Negative); Specific Gravity - Urine 1.025 (1.005-1.025); Urine Blood Negative (Negative); Urine Ketones Negative (Negative); Urine Protein Negative (Neg-Trace)
[2022-03-04 10:48] LABS: TSH reflex Free T4 1.45 uIU/mL (0.32-4.0); Vitamin D 25-OH Total 18.2 ng/mL (>30)
== END 2022-03-04 09:37 | disposition home or self-care (01) ==
LOC: HO.LAB 09:36
PROVIDERS: PCP Internal Medicine; Visit Provider Internal Medicine
DX: Z00.00 Encounter for general adult medical examination without abnormal findings (principal); E55.9 Vitamin D deficiency, unspecified; E78.00 Pure hypercholesterolemia, unspecified
CPT/HCPCS: 36415; 80053; 80061; 81003; 82306; 84443; 85025

== ENCOUNTER 2022-05-18 09:41 | Outpatient (REF) | payer OTHER, SELFPAY ==
--- NOTE | ~2022-05-18 | XR_ITS ---
EXAMINATION: XR FOOT, RIGHT CLINICAL INFORMATION: Pain COMPARISON: None TECHNIQUE: AP, lateral, and oblique views of the right foot. FINDINGS: The bones and soft tissues are normal. No fracture. Alignment is anatomic. Joint spaces are maintained. XR/XR foot RT min 3V IMPRESSION: Normal right foot.
== END 2022-05-18 09:42 | disposition home or self-care (01) ==
LOC: HO.HMGCX 09:41
PROVIDERS: PCP Internal Medicine; Visit Provider Internal Medicine
DX: M79.671 Pain in right foot (principal)
CPT/HCPCS: 73630

== ENCOUNTER 2022-06-15 08:08 | Outpatient (REF) | payer OTHER, SELFPAY | END 2022-06-15 08:09 | disposition home or self-care (01) | LOC: HO.LAB 08:08 | PROVIDERS: Visit Provider Internal Medicine | DX: Z13.89 Encounter for screening for other disorder (principal) ==

== ENCOUNTER 2022-11-20 08:18 | Outpatient (REF) | payer OTHER, SELFPAY ==
[2022-11-20 09:40] LABS: Estimated Average Glucose 108 mg/dL; Hemoglobin A1C 145.1033 umol/L; Hemoglobin A1c % 5.4 %
[2022-11-20 10:35] LABS: Alanine Aminotransferase 79 U/L (0-40); Albumin Level 4.3 g/dL (3.5-5.0); Alkaline Phosphatase 72 U/L (39-117); Anion Gap 10 (12-20); Aspartate Amino Transferase 34 U/L (5-37); Bilirubin Total 0.9 mg/dL (0.0-1.0); Blood Urea Nitrogen 15 mg/dL (9-16); Calcium 9.3 mg/dL (8.4-10.2); Carbon Dioxide 25 mmol/L (22-29); Chloride 106 mmol/L (96-108); Cholesterol 224 mg/dL; Estimated Glomerular Filt Rate > 60; Glucose Fasting 108 mg/dL (60-99); HDL Cholesterol 30 mg/dL; LDL Cholesterol Calculated 154 mg/dl; Potassium 4.3 mmol/L (3.3-5.1); Sodium 137 mmol/L (135-145); Total Protein 7.9 g/dL (6.5-8.0); Triglycerides 202 mg/dL
[2022-11-20 10:37] LABS: TSH reflex Free T4 2.39 uIU/mL (0.32-4.0); Vitamin D 25-OH Total 22.7 ng/mL (>30)
== END 2022-11-20 08:19 | disposition home or self-care (01) ==
LOC: HO.LAB 08:18
PROVIDERS: PCP Internal Medicine; Visit Provider Internal Medicine
DX: R79.89 Other specified abnormal findings of blood chemistry (principal); E55.9 Vitamin D deficiency, unspecified; R73.01 Impaired fasting glucose; E78.00 Pure hypercholesterolemia, unspecified
CPT/HCPCS: 36415; 80053; 80061; 82306; 83036; 84443

== ENCOUNTER 2023-01-28 14:11 | Outpatient (AMB) | payer OTHER, SELFPAY ==
--- NOTE | 2023-01-28 14:30 | AM.OFFWIN_ITS ---
Intake Vital Signs 01/28/23 14:32 Weight 249 lb BP 138/100 H Blood Pressure Location Rt brachial Position Sitting Pulse 72 Pulse Source Pulse Oximeter Pulse Oximetry (%) 98 Oxygen Delivery Method Room Air Intake Visit Reasons: EP, Left middle finger Intake Note: Patient here because he was in the gym last night and dropped a weight on his middle finger of left hand, it is bruised and swollen and is painful. Patient Tobacco Use Status: Former Tobacco user Allergies diclofenac [DICLOFENAC] Allergy (Unknown, Verified 01/28/23 14:51) SHORTNESS OF BREATH Medication List - Last Reconciled 01/28/23 by David Gonzalez MD albuterol sulfate 90 mcg/actuation 1 inh inhalation Q4-6H PRN cholecalciferol (vitamin D3) 50 mcg PO DAILY 90 days escitalopram oxalate 10 mg PO DAILY 30 days fluticasone propionate 50 mcg/actuation 1 spray intranasal DAILY PRN 30 days ibuprofen 600 mg PO Q6-8H PRN loratadine 10 mg PO DAILY PRN omeprazole 20 mg PO DAILY 90 days omeprazole 20 mg PO DAILY 30 days valacyclovir 500 mg PO BID Do you need a note to return to daycare/school/sports/work: No HPI EP, Left middle finger HPI Details 32-year-old male presents to the office for a sick visit. Patient dropped a weight on his left hand at the gym. As a result, his left finger is swollen and painful. [facility] Medical History (Updated 01/28/23 @ 14:51 by David Gonzalez MD) Allergic rhinitis Depression Elevated LFTs Environmental allergies Exertional dyspnea GERD without esophagitis Impaired fasting glucose Obesity (BMI 30-39.9) Overweight (BMI 25.0-29.9) Pure hypercholesterolemia Vitamin D deficiency Surgical History Perineal abscess Family History Mother History of thyroid cancer History of hypertension History of diabetes mellitus Social History Housing: House Alcohol intake: current Alcohol intake frequency: holidays/special occasions only Alcohol type: beer and wine Patient Tobacco Use Status: Former Tobacco user e-Cigarette/Vaping Use: Never Used Second Hand Smoke Exposure: Yes service: No Current occupational status: employed 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 Pain on flexion of the finger. Pulp space is engorged. Assessment & Plan Assessment & Plan (1) Contusion of hand, left: Code(s): S60.222A - Contusion of left hand, initial encounter Plan: X-ray images were personally reviewed by me, evidence of gout arthritis. Indomethacin was called in. If symptoms do not improve to follow-up here. Orders: Orders XR hand LT min 3V Today S60.222A - Contusion of left hand, initial encounter Coding Level of Care Code Est Pt Level 4 (55344) Diagnoses Contusion of hand, left S60.222A
[2023-01-28 14:32] VITALS: BP 138/100; PULSE 72; O2SAT 98
== END 2023-01-28 15:31 | disposition home or self-care (01) ==
PROVIDERS: PCP Internal Medicine; Visit Provider Internal Medicine
DX: S60.222A Contusion of left hand, initial encounter (principal)
CPT/HCPCS: 99214

== ENCOUNTER 2023-01-28 14:53 | Outpatient (REF) | payer OTHER, SELFPAY ==
--- NOTE | ~2023-01-28 | XR_ITS ---
EXAMINATION: XR HAND, LEFT CLINICAL INFORMATION: Left hand contusion. COMPARISON: None available. TECHNIQUE: PA, lateral, and oblique views of the left hand. FINDINGS: There is a minimally displaced comminuted fracture of the distal tip of the distal phalanx of the third digit. The remainder the digits are intact. The carpal bones are normally aligned. The distal radius and ulna are intact. XR/XR hand LT min 3V IMPRESSION: Acute, minimally displaced comminuted fracture of the distal tip of the distal phalanx of the third digit.
== END 2023-01-28 14:54 | disposition home or self-care (01) ==
LOC: HO.HMGCX 14:53
PROVIDERS: PCP Internal Medicine; Visit Provider Internal Medicine
DX: S60.222A Contusion of left hand, initial encounter (principal)
CPT/HCPCS: 73130

== ENCOUNTER 2023-02-08 11:10 | Emergency (ER) | payer OTHER, SELFPAY ==
--- NOTE | ~2023-02-08 | XR_ITS ---
EXAMINATION: XR LUMBOSACRAL SPINE CLINICAL INFORMATION: Low back pain COMPARISON: 03/18/2018 TECHNIQUE: Three views of the lumbosacral spine. FINDINGS: There are 5 not ribs bearing vertebral bodies and lumbar spine The vertebral bodies and posterior elements are normal. There is straightening of lumbar lordosis The disc spaces are preserved and the vertebral alignment is normal. The paraspinal soft tissues are normal. XR/XR lumbar spine 2-3V IMPRESSION: Muscle spasm with straightening of lumbar lordosis
[2023-02-08 11:20] VITALS: BP 137/66; PULSE 76; RESP 20; TEMP 37; O2SAT 96; BMI 32.4
--- NOTE | 2023-02-08 11:20 | ED.BACK ---
HPI - Back Pain/Injury General Chief Complaint: Back Pain/Injury Stated Complaint: back pain work related Time Seen by Provider: 02/08/23 11:40 Source: patient and family Mode of arrival: ambulatory Limitations: language barrier History of Present Illness HPI Narrative: 32 yo male with past medical history of chronic back pain, anxiety, depression here with complaints of acute on chronic lower back pain after a twisting injury at work 2 days ago. Patient reports he did not inform his employer and has not seen occupational health. He reports the pain is on the right and left back with the right side is more painful. The pain radiates down the right leg. There is no associated numbness, tingling, weakness of the extremities. No numbness in the groin. No bowel or bladder incontinence. No fevers or chills. Patient took 1 dose of ibuprofen yesterday. MD elicited complaint: back pain Related Data Home Medications Medication Instructions Recorded Confirmed valacyclovir 500 mg tablet 500 mg PO BID 01/08/21 11/13/22 Previous Rx's Medication Instructions Recorded ibuprofen 600 mg tablet 600 mg PO Q6-8H PRN pain #30 tabs 03/14/20 omeprazole 20 mg capsule,delayed 20 mg PO DAILY 90 days #90 caps 01/10/21 release albuterol sulfate 90 mcg/actuation 1 inh inhalation Q4-6H PRN 04/30/21 breath activated powder inhaler shortness of breath or wheezing #1 ea cholecalciferol (vitamin D3) 50 50 mcg PO DAILY 90 days #90 caps 12/03/21 mcg (2,000 unit) capsule fluticasone propionate 50 1 spray intranasal DAILY PRN 04/06/22 mcg/actuation nasal allergy symptoms 30 days #16 grams spray,suspension loratadine 10 mg tablet 10 mg PO DAILY PRN for allergies 10/22/22 #90 tabs escitalopram oxalate 10 mg tablet 10 mg PO DAILY 30 days #30 tabs 11/11/22 omeprazole 20 mg capsule,delayed 20 mg PO DAILY 30 days #30 caps 11/13/22 release indomethacin 50 mg capsule 50 mg PO TID #30 caps 01/28/23 cyclobenzaprine 10 mg tablet 10 mg PO TID PRN muscle spasm #15 02/08/23 tabs ibuprofen 600 mg tablet 600 mg PO Q8H PRN pain #30 tabs 02/08/23 lidocaine 5 % topical patch 1 patch topical DAILY #15 ea 02/08/23 (Lidoderm) Allergies Allergy/AdvReac Type Severity Reaction Status Date / Time diclofenac [DICLOFENAC] Allergy Unknown SHORTNESS Verified 01/28/23 14:51 OF BREATH Review of Systems Review of Systems: Yes all other systems are reviewed and are negative Constitutional: Constitutional: Reports no additional constitutional complaints, Denies body ache(s), Denies chills, Denies fever(s), Denies headache(s) and Denies weakness Eyes: Eyes: Reports no additional eye complaints and Denies change in vision ENT: Reports system reviewed and no additional complaints, except as documented, Denies dizziness, Denies headache(s), Denies nasal congestion, Denies nasal discharge and Denies neck pain Cardiovascular: Cardiovascular: Reports no additional cardiovascular complaints, Denies chest pain, Denies leg edema and Denies dyspnea Respiratory: Respiratory: Reports no additional respiratory complaints, Denies cough and Denies dyspnea Gastrointestinal: Gastrointestinal: Reports no additional gastrointestinal complaints, Denies abdominal pain, Denies diarrhea, Denies nausea and Denies vomiting Genitourinary: Genitourinary: Denies urinary incontinence Musculoskeletal: Musculoskeletal: Reports no additional musculoskeletal complaints, Reports back pain, Denies arthralgias, Denies joint swelling, Denies neck pain, Denies numbness, Reports radiating pain into limb and Denies tingling Integumentary/Breasts: Skin/Breast: Reports system reviewed and no additional complaints, except as docu and Denies rash Neurologic: Reports system reviewed and no additional complaints, except as documented, Denies Abnormal speech present, Denies dizziness, Denies headache(s), Denies numbness, Denies tingling and Denies weakness PMFSH Past Medical History Attestation statement: The following information was validated with the patient. Source: old records reviewed and nursing notes reviewed Medical History Allergic rhinitis Depression Elevated LFTs Environmental allergies Exertional dyspnea GERD without esophagitis Impaired fasting glucose Obesity (BMI 30-39.9) Overweight (BMI 25.0-29.9) Pure hypercholesterolemia Vitamin D deficiency Surgical History Perineal abscess Family History Family History Mother History of thyroid cancer History of hypertension History of diabetes mellitus Social History Social History Housing: House Alcohol intake: current Alcohol intake frequency: holidays/special occasions only Alcohol type: beer and wine Patient Tobacco Use Status: Former Tobacco user e-Cigarette/Vaping Use: Never Used Second Hand Smoke Exposure: Yes Advance Directives: No Advance Directives Information Provided: No service: No Current occupational status: employed 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: No Hearing needs: No Vision needs: No Physical Exam Vital Signs: Vital Signs: Last Vital Signs Temp 98.6 F 02/08/23 11:20 Pulse 76 02/08/23 11:20 Resp 20 02/08/23 11:20 BP 137/66 02/08/23 11:20 Pulse Ox 96 02/08/23 11:20 O2 Del Method Room Air 02/08/23 11:20 BMI result Body Mass Index 32.4 Const: General: cooperative, healthy appearing, comfortable and no acute distress Orientation/consciousness: patient oriented x3 Limitations: no limitations HEENT: Head: Yes normal to inspection Ears: hearing grossly normal bilaterally General nose exam: Normal external nose present Face and sinus: Yes normal facial exam Mouth: Normal oral and palatal mucosa present Throat: Yes posterior oropharynx normal Eyes: General: appearance normal, both eyes and all related structures Pupils: Equal, round and reactive pupils present Neck: Neck: Yes normal visual inspection Chest: Chest palpation & inspection: normal inspection of the chest Resp: Effort & Inspection: normal respiratory effort Auscultation: clear to auscultation bilaterally Cardio: Rate: regular rate Rhythm: regular rhythm Peripheral pulses: Peripheral pulses 2+ throughout GI: Inspection: Yes normal to inspection Palpation (GI): Soft to palpation and nontender Auscultation: normal bowel sounds Back/Spine/Pelvis: Other: Pain on palp to the lumbar mid spine with no step-offs deformities. Pain on palpation to the lumbar soft tissues right greater than left. This is worsened with bilateral straight leg raise. Thoracic/Lumbar Spine: thoracic and lumbar spine normal to inspection Skin: General skin exam: no rashes or lesions noted Neuro: General: patient oriented x3, no focal motor deficits and normal sensation to monofilament Cranial nerves: Yes Equal, round and reactive pupils present Cognition (Neuro): normal cognition Speech: No Abnormal speech present Gait exam (Neuro): Normal gait present Motor exam (neuro): 5/5 motor strength present throughout Sensory Exam: Normal double simultaneous stimulation for sensation Deep tendon reflexes (DTR's): Right patellar reflex intensity grade: 2+ and Left patellar reflex intensity grade: 2+ Extrem: General: Yes normal to inspection Course Course Course Narrative: RME: 32yo M w/PMHx obesity, anxiety, GERD, c/o low back pain w/difficulty ambulating 2/2 pain x yesterday s/p frequent movements at work. Admits to radiation down RLE, denies incontinence or retention. denies taking anything for pain today Ambulating w/antalgic gait. XRs ordered, will need pain control Full HPI, ROS and PE to be performed by primary ED provider. Reevaluation(s) Reevaluation #1: 1325-pain is better controlled. Patient is ambulatory. Patient will discharge home with NSAID, muscle relaxants and medicated patches. Reviewed worrisome signs and symptoms of when to return to the emergency room. Comfortable plan for discharge home. Medications Administered Discontinued Medications Generic Name Dose Route Start Last Admin Trade Name Freq PRN Reason Stop Dose Admin Cyclobenzaprine HCl 10 mg 02/08/23 12:15 02/08/23 12:25 Cyclobenzaprine Hcl 10 Mg Tablet PO 02/08/23 12:16 10 mg ONCE ONE Administration Ketorolac Tromethamine 60 mg 02/08/23 12:15 02/08/23 12:24 Ketorolac Tromethamine 60 Mg/2 Ml Vial IM 02/08/23 12:16 60 mg ONCE ONE Administration Medical Decision Making Medical Decision Making [facility] Narrative: 32-year-old male here with acute on chronic lower back pain after twisting injury at work 2 days ago. No neurological deficits or red flag symptoms. There is palpable lumbar tenderness over the mid spine with no step-offs deformities. X-rays ordered from triage Will give Toradol IM and Flexeril PO Differential Diagnosis Differential Diagnoses: The differential diagnosis associated with the presentation includes NO history of IVDA, immunocompromised state, previous back surgery with hardware, neurological deficits or red flag symptoms to suggest epidural abscess, cord compression, caude equina Gradual onset so less likely AAA low concern for pyelo or renal coli c Admission/Observation Consideration of admission/observation: Escalation of care including admission/observation considered pain well controlled with medications provided No neurological deficits or red flag symptoms to suggest need for MRI or neurosurgery evaluation Independent Interpretation I performed an independent interpretation of an: Plain X-Ray Interpretation: I independetely reviewed the x-ray and agree with Radiology report Radiology Impression Discussion of test interpretation with radiology: I have reviewed the radiologist's reading. Radiologist Impression: [address] [id number] ReportSigned Patient: Kobe Norton DMR#: [id number]: [id number]:[id number]/Sex: 32 / MADM Date: 02/08/23Loc: [email or web address] Dr: Ordering Physician: Amy Philip Date of Service: 02/08/23 Procedure(s): XR lumbar spine 2-3V Accession Number(s): [id number] cc: Dayton Siegel MD; Amy Philip~ EXAMINATION: XR LUMBOSACRAL SPINE CLINICAL INFORMATION: Low back pain COMPARISON: 03/18/2018 TECHNIQUE: Three views of the lumbosacral spine. FINDINGS: There are 5 not ribs bearing vertebral bodies and lumbar spine The vertebral bodies and posterior elements are normal. There is straightening of lumbar lordosis The disc spaces are preserved and the vertebral alignment is normal. The paraspinal soft tissues are normal. XR/XR lumbar spine 2-3V IMPRESSION: Muscle spasm with straightening of lumbar lordosis Tests considered The following testing was considered but not selected: No neurological deficits or red flag symptoms to suggest need for MRI of the lumbar spine Prescription Management I considered prescription management with: Pain Medication Discharge Plan Discharge Clinical Impression: Lumbar radiculopathy Patient Disposition: Home, Self-Care Instructions: Lumbar Radiculopathy (ED) Additional Instructions: Heat or ice Gentle stretching No heavy lifting or bending Inform your job to that you may follow-up with occupational health Return for incontinence of urine/stool, fever Calor o hielo Estiramiento suave Sin levantar objetos pesados ??ni agacharse Informar a barreto puesto de trabajo para que pueda realizar un seguimiento con davis ocupacional. Regreso por incontinencia de orina/heces, fiebre Prescriptions: New ibuprofen 600 mg tablet 600 mg PO Q8H PRN (Reason: pain) Qty: 30 0RF cyclobenzaprine 10 mg tablet 10 mg PO TID PRN (Reason: muscle spasm) Qty: 15 0RF lidocaine [Lidoderm] 5 % adhesive patch,medicated 1 patch topical DAILY Qty: 15 0RF Rx Instructions: leave on most painful area for up to 12 hrs No Action fluticasone propionate 50 mcg/actuation spray,suspension 1 spray intranasal DAILY PRN (Reason: allergy symptoms) 30 Days Qty: 16 5RF loratadine 10 mg tablet 10 mg PO DAILY PRN (Reason: for allergies) Qty: 90 1RF escitalopram oxalate 10 mg tablet 10 mg PO DAILY 30 Days Qty: 30 5RF ibuprofen 600 mg tablet 600 mg PO Q6-8H PRN (Reason: pain) Qty: 30 0RF valacyclovir 500 mg tablet 500 mg PO BID omeprazole 20 mg capsule,delayed release(DR/EC) 20 mg PO DAILY 90 Days Qty: 90 1RF cholecalciferol (vitamin D3) 50 mcg (2,000 unit) capsule 50 mcg PO DAILY 90 Days Qty: 90 3RF omeprazole 20 mg capsule,delayed release(DR/EC) 20 mg PO DAILY 30 Days Qty: 30 3RF albuterol sulfate 90 mcg/actuation aerosol powdr breath activated 1 inh inhalation Q4-6H PRN (Reason: shortness of breath or wheezing) Qty: 1 0RF indomethacin 50 mg capsule 50 mg PO TID Qty: 30 0RF Rx Instructions: administer with food or milk Referrals: Dayton Siegel MD [Primary Care Provider] - 10 days Stand Alone Forms: Work/School Release Print Language: Kiswahili
[2023-02-08] MEDS: Ketorolac Tromethamine 60 MG/2 ML VIAL IM (12:24)
[2023-02-08] MEDS: Cyclobenzaprine HCl 10 MG TABLET PO (12:25)
== END 2023-02-08 13:39 | disposition home or self-care (01) ==
PROVIDERS: Emergency Provider Emergency Medicine; PCP Internal Medicine
DX: M54.16 Radiculopathy, lumbar region (principal); M54.50 Low back pain, unspecified; Z79.899 Other long term (current) drug therapy
CPT/HCPCS: 72100; 96372; 99283; 99284; J1885

== ENCOUNTER 2023-03-18 13:19 | Outpatient (AMB) | payer OTHER, SELFPAY ==
[2023-03-18 13:21] VITALS: BP 120/88; PULSE 71; O2SAT 98; BMI 32.7
--- NOTE | 2023-03-18 13:21 | A.OFFPC_ITS ---
Vital Signs 03/18/23 13:21 Height 6 ft 1 in Weight 248 lb BMI 32.7 BP 120/88 Blood Pressure Location Lt brachial Position Sitting Pulse 71 Pulse Source Pulse Oximeter Pulse Oximetry (%) 98 Oxygen Delivery Method Room Air Intake Visit Reasons: GERD, IFG, right foot pain Inside [employer] Sales Required: No Accompanied by: Self / Same As Patient Allergies diclofenac [DICLOFENAC] Allergy (Unknown, Verified 03/18/23 14:16) SHORTNESS OF BREATH Medication List - Last Reconciled 03/18/23 by Dayton Siegel MD albuterol sulfate 90 mcg/actuation 1 inh inhalation Q4-6H PRN cholecalciferol (vitamin D3) 50 mcg PO DAILY 90 days cyclobenzaprine 10 mg PO TID PRN escitalopram oxalate 10 mg PO DAILY 30 days fluticasone propionate 50 mcg/actuation 1 spray intranasal DAILY PRN 30 days ibuprofen 600 mg PO Q8H PRN indomethacin 50 mg PO TID lidocaine 5% (Lidoderm) 1 patch topical DAILY loratadine 10 mg PO DAILY PRN omeprazole 20 mg PO DAILY 30 days valacyclovir 500 mg PO BID Tobacco use date assessed: 03/18/23 Dental Screening Dental Screen Date: 03/18/23 Did you have a dental visit in the last 12 months?: Yes Did you have a dental problem in the last 6 months where you did not have access to dental care?: No Was dental information given to patient?: Patient has dentist HPI GERD, IFG, right foot pain HPI Details Patient comes in today for his follow up visit States that he has been experiencing recurrent itching of his throat for the past 3 weeks Notes that his itchy throat symptoms seem to feel worse at night Also reports (+) on and off non-productive cough lately that also seems to be worse at night He denies any sore throat or fever; denies any headaches or dizziness Denies any chest pains, no shortness of breath No nausea/ vomiting, no abdominal pain No change in bowel habits noted Adds that he is still experiencing persistent pain over his right foot, mostly over the medial aspect at the arch of the foot Had x-rays of the foot done last year (May 2022) that came out negative Needs a couple of his Rx refilled Was not able to get his follow up labs done prior to coming in today [facility] Medical History Obesity (BMI 30-39.9) Vitamin D deficiency Depression GERD without esophagitis Overweight (BMI 25.0-29.9) Impaired fasting glucose Elevated LFTs Pure hypercholesterolemia Exertional dyspnea Allergic rhinitis Environmental allergies Surgical History Perineal abscess Family History Mother History of thyroid cancer History of hypertension History of diabetes mellitus Social History Housing: House Alcohol intake: current Alcohol intake frequency: holidays/special occasions only Alcohol type: beer and wine Patient Tobacco Use Status: Former Tobacco user e-Cigarette/Vaping Use: Never Used Second Hand Smoke Exposure: Yes service: No Current occupational status: employed 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 1. Little interest or pleasure in doing things: not at all 2. Feeling down, depressed, or hopeless: not at all 3. Trouble falling or staying asleep, or sleeping too much: not at all 4. Feeling tired or having little energy: not at all 5. Poor appetite or overeating: not at all 6. Feeling bad about yourself - or that you are a failure or have let yourself or your family down: not at all 7. Trouble concentrating on things, such as reading the newspaper or watching television: not at all 8. Moving or speaking so slowly that other people could have noticed. Or the opposite - being so fidgety or restless that you have been moving around a lot more than usual: not at all 9. Thoughts that you would be better off or of hurting yourself in some way: not at all Total score: 0 Depression Screening Interpretation: Positive Depression Screening Follow-up: Existing condition and In treatment Depression Screening Done: Yes [id number] - PHQ-9 Billing: Yes Source: Developed by Drs. Peter Dial, Nan Hines, Jagjit Baldwin and colleagues, with an educational shahla from [employer]. Thrive Questionnaire Date Thrive assessed: 03/18/23 I am a: Patient What is your living situation today?: I have a steady place to live Within the past 12 months, did the food you bought not last and you didn't have the money to get more?: Never true Within the past 12 months, did you worry whether your food would run out before you got money to buy more?: Never true Do you have trouble paying for medicines?: No Do you have trouble getting transportation to medical appointments?: No Do you have trouble paying your heating and electricity bill?: No Do you have trouble taking care of your child, family member or friend?: No Do you have trouble with day-to-day activities such as bathing, preparing meals, shopping, managing finances, etc.?: No Are you currently unemployed and looking for a job?: No Are you interested in more education?: No Please select the resources that you would like help with: None Currently or been in a relationship where the following occur: no concerns reported AUDIT C Alcohol Use Questionnaire (AUDIT-C) 1. How often do you have a drink containing alcohol?: Monthly or less 2. How many drinks containing alcohol do you have on a typical day when you are drinking?: 1 or 2 3. How often do you have six or more drinks on one occasion?: Never Total Score: 1 Score Reviewed/Action Taken: Yes DIPIKA-7 AMB Questionnaire DIPIKA-7 Date DIPIKA - 7 assessed: 03/18/23 Feeling nervous, anxious, or on edge: 3 = Nearly every day Not being able to stop or control worryin = Several days Worrying too much about different things: 0 = Not at all Trouble relaxin = Not at all Being so restless that it is hard to sit still: 0 = Not at all Becoming easily annoyed or irritable: 0 = Not at all Feeling afraid as if something awful might happen: 0 = Not at all Total DIPIKA-7 score (0-4 normal; 5-9 mild; 10-14 moderate; 15-21 severe): 4 Source: Developed by Drs. Peter Dial, Nan Hines, Jagjit Baldwin and colleagues, with an educational shahla from [employer]. Review of Systems Const Denies chills, Denies fatigue, Denies fever(s) and Denies headache(s) ENT Details: recurrent itching of throat - worse at night Denies dysphagia, Denies dizziness, Denies otalgia, Denies headache(s), Denies neck pain, Denies odynophagia and Denies sore throat Card Denies chest pain, Denies palpitations and Denies dyspnea Resp Denies chest congestion, Reports cough (on and off, non-productive; worse at night) and Denies dyspnea GI Denies abdominal pain, Denies constipation, Denies dysphagia, Denies heartburn, Denies diarrhea, Denies nausea, Denies odynophagia and Denies vomiting Denies dysuria, Denies nocturia and Denies urinary frequency Musc Details: (+) pain over the arch of the right foot Denies neck pain Skin/Breast Denies rash Neuro Denies dizziness and Denies headache(s) Endo Denies fatigue and Denies palpitations Physical exam (Primary Care) Vital Signs: Last Vital Signs Pulse 71 03/18/23 13:21 BP 120/88 03/18/23 13:21 Pulse Ox 98 03/18/23 13:21 Oxygen Delivery Method Room Air 03/18/23 13:21 BMI result Body Mass Index 32.7 Tobacco/Smoking Status: Tobacco use Status Tobacco use date assessed 03/18/23 03/18/23 13:23 Patient Tobacco Use Status Former Tobacco user 03/18/23 13:23 e-Cigarette/Vaping Use Never Used 03/18/23 13:23 PHQ-9: PHQ-9 Score PHQ-9: Total score 0 03/18/23 14:24 Depression Screening Interpretation: Positive Depression Screening Follow-up: Existing condition and In treatment Thrive Assessment: Date of Thrive Assessment Date Thrive assessed 03/18/23 03/18/23 13:23 Currently or been in a relationship where the following occur: no concerns reported Const General: no acute distress and alert HENMT Ears: TM's normal bilaterally and EAC's normal Throat: Yes posterior oropharynx normal and Yes tonsils normal (no TP congestion) Neck Neck: Yes no lymphadenopathy and Yes supple Resp Auscultation: clear to auscultation bilaterally, no rales and no wheezes Cardio Rate: regular rate Rhythm: regular rhythm Heart sounds: no murmurs GI Palpation (GI): Soft to palpation and nontender Auscultation: normal bowel sounds Skin Rashes: no rashes Extrem General: Yes no clubbing, cyanosis or edema Right lower extremity: foot Details: tenderness Location: of the medial foot (along the arch of the foot) Assessment and Plan Assessment & Plan (1) Right foot pain: Comment: pain is mostly over the area of the arch of the foot - plantar aspect medially Code(s): M79.671 - Pain in right foot Plan: X-rays of the right foot done a few months ago in May 2022 came out normal Due to the persistence of his right foot pain, will refer him to podiatry for further evaluation and management (2) Pure hypercholesterolemia: Code(s): E78.00 - Pure hypercholesterolemia, unspecified Plan: Reinforced low cholesterol diet Reminded that his LDL cholesterol level back in February 2022 is still high and have not improved at all from his numbers 6 months ago in August 2021 He was supposed to get his labs rechecked just before coming in today for his appointment but he forgot States that he will try to go to the lab tomorrow morning to get them done FAITH Will have him recheck his labs again in 4 months for follow-up (3) Elevated LFTs: Code(s): R79.89 - Other specified abnormal findings of blood chemistry Plan: Improved on his recent labs late last year - were most likely due to his weight and his cholesterol level Will continue to monitor his LFTs regularly (4) Impaired fasting glucose: Code(s): R73.01 - Impaired fasting glucose Plan: Reinforced low calorie diet/exercise as tolerated FBS was slightly elevated at 107 mg/dl on his recent labs done late last year Will recheck his FBS and also check his HgbA1c FAITH for follow up / further evaluation (5) Elevated TSH: Code(s): R79.89 - Other specified abnormal findings of blood chemistry Plan: Free T4 was normal on his previous labs; patient remains clinically euthyroid Will continue to monitor his TFTs closely (6) Allergic rhinitis: Code(s): J30.9 - Allergic rhinitis, unspecified Qualifiers: Allergic rhinitis seasonality: unspecified Allergic rhinitis trigger: unspecified Qualified Code(s): J30.9 - Allergic rhinitis, unspecified Plan: Continue Loratadine 10 mg QD PRN and Fluticasone 50 mcg nasal spray QD PRN (7) GERD without esophagitis: Code(s): K21.9 - Gastro-esophageal reflux disease without esophagitis Plan: Dietary restrictions reinforced Continue Omeprazole 20 mg QD - Rx sent Advised that his recent increased heartburns should subside once he loses the weight that he has gained lately (8) Loud snoring: Code(s): R06.83 - Snoring Plan: States that he has been snoring a lot heavier than before lately and he has been waking up with a sore throat in the morning often Discussed that his recent weight gain most likely is contributing to this and that he should try to lose some weight first to see if this will resolve Can consider sending him for a home sleep study for further evaluation if his snoring persists or gets worse despite weight loss (9) Vitamin D deficiency: Code(s): E55.9 - Vitamin D deficiency, unspecified Plan: Continue Vitamin D3 2000 units QD (10) Anxiety: Code(s): F41.9 - Anxiety disorder, unspecified Plan: Continue Escitalopram 10 mg QD (11) Depression: Code(s): F32.A - Depression, unspecified Qualifiers: Active/Remission status: currently active Depression Type: major depressive disorder Major depression episode severity: unspecified Major depression recurrence: recurrent Qualified Code(s): F33.9 - Major depressive disorder, recurrent, unspecified Plan: Continue Escitalopram 10 mg QD (12) Obesity (BMI 30-39.9): Code(s): E66.9 - Obesity, unspecified Plan: Reinforced diet/exercise as tolerated/lose weight Plan Follow up in 4 months Orders: Orders Comprehensive [place]. Panel Fast 4 Months E78.00 - Pure hypercholesterolemia, unspecified Lipid Panel 4 Months E78.00 - Pure hypercholesterolemia, unspecified Referrals Podiatry Referral M79.671 - Pain in right foot Medications: New amoxicillin 500 mg PO Q8H 21 caps 0RF 7 days Changed From albuterol sulfate 90 mcg/actuation 1 inh inhalation Q4-6H PRN 1 ea 0RF shortness of breath or wheezing To albuterol sulfate 90 mcg/actuation 1 inh inhalation Q6-8H PRN 1 ea 1RF shortness of breath or wheezing Coding Level of Care Code Est Pt Level 4 (07426) Diagnoses Right foot pain M79.671 Pure hypercholesterolemia E78.00 Elevated LFTs R79.89 Impaired fasting glucose R73.01 Elevated TSH R79.89 Allergic rhinitis, unspecified seasonality, unspecified trigger J30.9 Allergic rhinitis seasonality: unspecified Allergic rhinitis trigger: unspecified GERD without esophagitis K21.9 Loud snoring R06.83 Vitamin D deficiency E55.9 Anxiety F41.9 Episode of recurrent major depressive disorder, unspecified depression episode severity F33.9 Active/Remission status: currently active Depression Type: major depressive disorder Major depression episode severity: unspecified Major depression recurrence: recurrent Obesity (BMI 30-39.9) E66.9
== END 2023-03-18 14:26 | disposition home or self-care (01) ==
PROVIDERS: PCP Internal Medicine; Visit Provider Internal Medicine
DX: M79.671 Pain in right foot (principal); E78.00 Pure hypercholesterolemia, unspecified; F33.9 Major depressive disorder, recurrent, unspecified; R79.89 Other specified abnormal findings of blood chemistry; R73.01 Impaired fasting glucose; J30.9 Allergic rhinitis, unspecified; K21.9 Gastro-esophageal reflux disease without esophagitis; R06.83 Snoring; E55.9 Vitamin D deficiency, unspecified; F41.9 Anxiety disorder, unspecified; E66.9 Obesity, unspecified
CPT/HCPCS: 99214

== ENCOUNTER 2023-05-15 11:05 | Outpatient (AMB) | payer OTHER, SELFPAY ==
[2023-05-15 11:10] VITALS: BP 120/80; PULSE 85; TEMP 37; O2SAT 97; BMI 32.5
--- NOTE | 2023-05-15 11:10 | AM.OFFWIN_ITS ---
Intake Vital Signs 05/15/23 11:10 Height 6 ft 1 in Weight 246 lb BMI 32.5 BP 120/80 Blood Pressure Location Rt brachial Position Sitting Pulse 85 Pulse Source Pulse Oximeter Temp 98.6 F Temp Source Temporal Artery Scan Pulse Oximetry (%) 97 Oxygen Delivery Method Room Air Intake Visit Reasons: EP, cough, congestion ([phone]) Intake Note: pt is here today for cough congestion started 2 day ago Patient Tobacco Use Status: Former Tobacco user Allergies diclofenac [DICLOFENAC] Allergy (Unknown, Verified 05/15/23 11:11) SHORTNESS OF BREATH Do you need a note to return to daycare/school/sports/work: Yes HPI EP, cough, congestion ([phone]) HPI Details 32 year old male patient presents today with 2-3 day history of cough, nasal congestion, and left ear pain. Had a family member with similar symptoms. Denies any shortness of breath. Cough productive with some green sputum. Has felt very hot/feverish but has not taken temp at home. Denies any GI symptoms. [facility] Medical History Obesity (BMI 30-39.9) Vitamin D deficiency Depression GERD without esophagitis Overweight (BMI 25.0-29.9) Impaired fasting glucose Elevated LFTs Pure hypercholesterolemia Exertional dyspnea Allergic rhinitis Environmental allergies Surgical History Perineal abscess Family History Mother History of thyroid cancer History of hypertension History of diabetes mellitus Social History Housing: House Alcohol intake: current Alcohol intake frequency: holidays/special occasions only Alcohol type: beer and wine Patient Tobacco Use Status: Former Tobacco user e-Cigarette/Vaping Use: Never Used Second Hand Smoke Exposure: Yes service: No Current occupational status: employed 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: No Hearing needs: No Vision needs: No Review of Systems Const All systems reviewed & are unremarkable except as noted in HPI and below Physical Exam Vital Signs: Last Vital Signs Temp 98.6 F 05/15/23 11:10 Pulse 85 05/15/23 11:10 BP 120/80 05/15/23 11:10 Pulse Ox 97 05/15/23 11:10 Oxygen Delivery Method Room Air 05/15/23 11:10 BMI result Body Mass Index 32.5 Const General: cooperative, no acute distress and ill appearing acutely HEENT Head: Yes normal to inspection Ears: hearing grossly normal bilaterally, external ears normal, TM normal on the right and TM abnormal (left TM erythematous, serous effusion) wth effusion General nose exam: Normal external nose present and Nasal discharge present mucoid Face and sinus: Yes normal facial exam Mouth: Normal oral and palatal mucosa present and moist mucous membranes Throat: Yes posterior oropharynx abnormal (mild erythema) Neck Neck: Yes no lymphadenopathy Resp Effort & Inspection: normal respiratory effort, able to speak in complete sentences and Actively coughing Quality: productive Auscultation: clear to auscultation bilaterally Cardio Jugular venous distension: no JVD Palpation: normal PMI Rate: regular rate Rhythm: regular rhythm Skin General skin exam: no rashes or lesions noted Extrem General: Yes capillary refill normal and Yes no clubbing, cyanosis or edema Psych Appearance: grossly normal Mental Status: mental status grossly normal Speech and movement: Normal speech and movement present Results AMB Rapid Strep AMB Rapid Strep Negative Last Edit by Vee Garcia CMA on 05/15/23 11:28 Results Reviewed Results Reviewed: Laboratory Last Values Strep Scn Rapid Clinic Negative 05/15/23 11:19 Assessment & Plan Assessment & Plan (1) Left acute otitis media: Code(s): H66.92 - Otitis media, unspecified, left ear Plan: Augmentin for left OM. Advised otc cold/flu medication, rest, hydration for other symptomatic treatment. Declines viral testing. Advised to return to the clinic if he does not improve with time and treatment or if new symptoms develop. He agrees to plan. Work note provided. Orders: Orders AMB Rapid Strep Screen Today Z13.9 - Encounter for screening, unspecified Medications: New amoxicillin-pot clavulanate 875-125 mg 1 tab PO BID 7 days 14 tabs 0RF H65.92 - Unspecified nonsuppurative otitis media, left ear Coding Level of Care Code Est Pt Level 3 (60433) Diagnoses Left acute otitis media H66.92
== END 2023-05-15 12:07 | disposition home or self-care (01) ==
PROVIDERS: PCP Internal Medicine; Visit Provider Nurse Practitioner Family
DX: H66.92 Otitis media, unspecified, left ear (principal); J39.2 Other diseases of pharynx
CPT/HCPCS: 87880; 99213

== ENCOUNTER 2023-05-19 13:35 | Outpatient (AMB) | payer OTHER, SELFPAY ==
--- NOTE | 2023-05-19 13:37 | MHC.PC.OV ---
Vital Signs 05/19/23 13:42 Height 6 ft 1 in Weight 243 lb 2 oz BMI 32.1 BP 122/80 Blood Pressure Location Lt brachial Position Sitting Pulse 66 Pulse Source Pulse Oximeter Pulse Oximetry (%) 98 Oxygen Delivery Method Room Air Intake Visit Reasons: PE Library Associate Required: No Accompanied by: Self / Same As Patient Allergies diclofenac [DICLOFENAC] Allergy (Unknown, Verified 05/26/24 16:10) SHORTNESS OF BREATH Medication List - Last Reconciled 05/19/23 by Dayton Siegel MD albuterol sulfate 90 mcg/actuation 1 inh inhalation Q6-8H PRN amoxicillin-pot clavulanate 875-125 mg 1 tab PO BID 7 days cholecalciferol (vitamin D3) 50 mcg PO DAILY 90 days cyclobenzaprine 10 mg PO TID PRN escitalopram oxalate 10 mg PO DAILY 30 days fluticasone propionate 50 mcg/actuation 1 spray intranasal DAILY PRN 30 days ibuprofen 600 mg PO Q8H PRN indomethacin 50 mg PO TID lidocaine 5% (Lidoderm) 1 patch topical DAILY loratadine 10 mg PO DAILY PRN omeprazole 20 mg PO DAILY 30 days Tobacco use date assessed: 05/19/23 Dental Screening Dental Screen Date: 05/19/23 Did you have a dental visit in the last 12 months?: Yes Did you have a dental problem in the last 6 months where you did not have access to dental care?: No Was dental information given to patient?: Patient has dentist HPI PE HPI Details Patient comes in today for his annual physical examination He went to the walk-in clinic in [place] a few days ago on 05/15/2023 for increasing left ear pain and cough and congestion x 2 to 3 days Was diagnosed with otitis media of the left ear and started on Augmentin 875 mg BID x 7 days He is currently still taking the Abx and notes that his left ear pain is starting to subside although he now reports increased itching often in his ear Also notes that his respiratory symptoms seem to be gradually improving He denies any fever or sore throat Denies any headaches or dizziness Denies any chest pains, no SOB No nausea/vomiting, no abdominal pain No change in bowel habits noted He denies any acute urinary symptoms Needs his Loratadine Rx refilled Also states that he is still experiencing pain in his right foot and that they have not yet heard back from the tutoring manager that he was supposedly referred to a few months ago [facility] Medical History (Updated 05/27/24 @ 05:40 by Dayton Siegel MD) Obesity (BMI 30-39.9) Vitamin D deficiency Depression GERD without esophagitis Impaired fasting glucose Elevated LFTs Pure hypercholesterolemia Exertional dyspnea Allergic rhinitis Environmental allergies Surgical History Perineal abscess Family History Mother History of thyroid cancer History of hypertension History of diabetes mellitus Social History Housing: House Alcohol intake: current Alcohol intake frequency: holidays/special occasions only Alcohol type: beer and wine Patient Tobacco Use Status: Former Tobacco user e-Cigarette/Vaping Use: Never Used Second Hand Smoke Exposure: Yes service: No Current occupational status: employed 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 1. Little interest or pleasure in doing things: not at all 2. Feeling down, depressed, or hopeless: not at all 3. Trouble falling or staying asleep, or sleeping too much: not at all 4. Feeling tired or having little energy: not at all 5. Poor appetite or overeating: not at all 6. Feeling bad about yourself - or that you are a failure or have let yourself or your family down: not at all 7. Trouble concentrating on things, such as reading the newspaper or watching television: not at all 8. Moving or speaking so slowly that other people could have noticed. Or the opposite - being so fidgety or restless that you have been moving around a lot more than usual: not at all 9. Thoughts that you would be better off or of hurting yourself in some way: not at all Total score: 0 Depression Screening Interpretation: Positive Depression Screening Follow-up: Existing condition and In treatment Depression Screening Done: Yes 85487 - PHQ-9 Billing: Yes Source: Developed by Drs. Peter Dial, NanJagjit Paiz and colleagues, with an educational shahla from [employer]. Thrive Questionnaire Date Thrive assessed: 05/19/23 I am a: Patient What is your living situation today?: I have a steady place to live Within the past 12 months, did the food you bought not last and you didn't have the money to get more?: Never true Within the past 12 months, did you worry whether your food would run out before you got money to buy more?: Never true Do you have trouble paying for medicines?: No Do you have trouble getting transportation to medical appointments?: No Do you have trouble paying your heating and electricity bill?: No Do you have trouble taking care of your child, family member or friend?: No Do you have trouble with day-to-day activities such as bathing, preparing meals, shopping, managing finances, etc.?: No Are you currently unemployed and looking for a job?: No Are you interested in more education?: No Please select the resources that you would like help with: None Currently or been in a relationship where the following occur: no concerns reported AUDIT C Alcohol Use Questionnaire (AUDIT-C) 1. How often do you have a drink containing alcohol?: Monthly or less 2. How many drinks containing alcohol do you have on a typical day when you are drinking?: 1 or 2 3. How often do you have six or more drinks on one occasion?: Never Total Score: 1 Score Reviewed/Action Taken: Yes DIPIKA-7 AMB Questionnaire DIPIKA-7 Date DIPIKA - 7 assessed: 05/19/23 Feeling nervous, anxious, or on edge: 3 = Nearly every day Not being able to stop or control worryin = Several days Worrying too much about different things: 0 = Not at all Trouble relaxin = Not at all Being so restless that it is hard to sit still: 0 = Not at all Becoming easily annoyed or irritable: 0 = Not at all Feeling afraid as if something awful might happen: 0 = Not at all Total DIPIKA-7 score (0-4 normal; 5-9 mild; 10-14 moderate; 15-21 severe): 4 Source: Developed by Drs. Peter Dial, Jagjit Broderick and colleagues, with an educational shahla from [employer]. Review of Systems Const Denies chills, Denies fatigue, Denies fever(s), Denies headache(s), Denies malaise and Denies weakness Eyes Denies blurry vision, Denies change in vision, Denies irritation and Denies itchy eyes ENT Denies dysphagia, Denies dizziness, Denies ear discharge, Reports otalgia (left ear - improving; increased itching in ear lately), Denies headache(s), Reports nasal congestion (mild, improving), Denies neck pain, Denies odynophagia and Denies sore throat Card Denies chest pain, Denies rapid heart rate, Denies irregular heart rhythm, Denies palpitations and Denies dyspnea Resp Denies chest congestion, Reports cough (on and off, mild, non-productive), Denies excessive phlegm production, Denies dyspnea and Denies wheezing GI Denies abdominal pain, Denies bloating, Denies constipation, Denies dysphagia, Denies heartburn, Denies diarrhea, Denies nausea, Denies odynophagia and Denies vomiting Denies hematuria, Denies difficulty urinating, Denies dysuria, Denies urinary frequency and Denies urinary urgency Musc Denies back pain, Denies arthralgias, Denies joint swelling, Denies muscle weakness and Denies neck pain Skin/Breast Denies change in pigmentation, Denies lesions, Denies rash and Denies unusual bruising Neuro Denies dizziness, Denies headache(s), Denies paresthesias and Denies weakness Endo Denies fatigue and Denies palpitations Aller/Immun Denies itchy eyes and Denies wheezing Physical exam (Primary Care) Vital Signs: Last Vital Signs Pulse 66 05/19/23 13:42 BP 122/80 05/19/23 13:42 Pulse Ox 98 05/19/23 13:42 Oxygen Delivery Method Room Air 05/19/23 13:42 BMI result Body Mass Index 32.1 Tobacco/Smoking Status: Tobacco use Status Tobacco use date assessed 05/19/23 05/19/23 13:45 Patient Tobacco Use Status Former Tobacco user 05/19/23 13:37 e-Cigarette/Vaping Use Never Used 05/19/23 13:37 PHQ-9: PHQ-9 Score PHQ-9: Total score 0 12/02/23 06:10 Depression Screening Interpretation: Positive Depression Screening Follow-up: Existing condition and In treatment Thrive Assessment: Date of Thrive Assessment Date Thrive assessed 05/19/23 05/19/23 13:45 Currently or been in a relationship where the following occur: no concerns reported Const General: no acute distress, alert and awake Orientation/consciousness: patient oriented x3 HENMT Head: Yes normocephalic and Yes atraumatic Ears: external ears normal, TM's normal bilaterally and EAC's normal ((+) minimal residual erythema noted in the left ear canal) General nose exam: No nasal discharge present Face and sinus: Yes normal facial exam and Yes sinuses nontender Teeth and gingiva: dentition normal Throat: Yes posterior oropharynx normal and Yes tonsils normal (no TP congestion) Eyes Eyelids: Yes eyelids normal Conjunctivae: conjunctivae normal Pupils: Equal, round and reactive pupils present EOM: EOMs intact bilaterally Neck Neck: Yes no lymphadenopathy and Yes supple Thyroid: Thyroid normal Resp Auscultation: clear to auscultation bilaterally, no rales and no wheezes Cardio Rate: regular rate Rhythm: regular rhythm Heart sounds: no murmurs GI Palpation (GI): Soft to palpation, nontender and No hepatosplenomegaly present Auscultation: normal bowel sounds General: Yes no CVA tenderness Back/Spine/Pelvis Back: no CVA tenderness Thoracic/Lumbar Spine: thoracic and lumbar spine normal to inspection Skin Lesions: no lesions Rashes: no rashes Neuro General: patient oriented x3, moves all extremities, no focal motor deficits and CN's II-XI intact bilaterally Cranial nerves: Yes Equal, round and reactive pupils present Cognition (Neuro): normal cognition Gait exam (Neuro): Normal gait present Extrem General: Yes no clubbing, cyanosis or edema Coding Level of Care Code Est Pt Prev Care 18-39y([id number]) Diagnoses Annual physical exam Z00.00 Right foot pain M79.671 Pure hypercholesterolemia E78.00 Elevated LFTs R79.89 Impaired fasting glucose R73.01 Elevated TSH R79.89 Allergic rhinitis, unspecified seasonality, unspecified trigger J30.9 Allergic rhinitis seasonality: unspecified Allergic rhinitis trigger: unspecified Left otitis media, unspecified otitis media type H66.92 Otitis media type: unspecified GERD without esophagitis K21.9 Vitamin D deficiency E55.9 Anxiety F41.9 Episode of recurrent major depressive disorder, unspecified depression episode severity F33.9 Active/Remission status: currently active Depression Type: major depressive disorder Major depression episode severity: unspecified Major depression recurrence: recurrent Obesity (BMI 30-39.9) E66.9
[2023-05-19 13:42] VITALS: BP 122/80; PULSE 66; O2SAT 98; BMI 32.1
== END 2023-05-19 14:43 | disposition home or self-care (01) ==
PROVIDERS: Visit Provider Internal Medicine
DX: Z00.00 Encounter for general adult medical examination without abnormal findings (principal); M79.671 Pain in right foot; E78.00 Pure hypercholesterolemia, unspecified; R79.89 Other specified abnormal findings of blood chemistry; R73.01 Impaired fasting glucose; J30.9 Allergic rhinitis, unspecified; H66.92 Otitis media, unspecified, left ear; K21.9 Gastro-esophageal reflux disease without esophagitis; E55.9 Vitamin D deficiency, unspecified; F41.9 Anxiety disorder, unspecified; F33.9 Major depressive disorder, recurrent, unspecified; E66.9 Obesity, unspecified
CPT/HCPCS: 99499

== ENCOUNTER 2023-09-12 10:13 | Outpatient (REF) | payer BC, SELFPAY ==
[2023-09-12 10:31] LABS: MANUAL DIFF FLAG NO
[2023-09-12 10:57] LABS: Basophils Absolute Auto 0.1 X10*3/uL (0.0-0.2); Basophils Percent Auto 1.2 % (0-2); Eosinophils Absolute Auto 0.2 X10*3/uL (0.0-0.4); Eosinophils Percent Auto 2.7 % (0-4); Hematocrit 46.7 % (42.0-52.0); Hemoglobin 15.5 g/dl (14.0-18.0); Imm Gran Abs Auto 0.04 X10*3/uL (0.00-0.03); Imm Gran Pct Auto 0.5 % (0.0-0.4); Lymphocytes Absolute Auto 2.6 X10*3/uL (1.2-4.9); Lymphocytes Percent Auto 32.2 % (20-40); Mean Corpuscular HGB Conc 33.2 g/dl (31.0-36.0); Mean Corpuscular Hemoglobin 28.3 pg (27.0-33.0); Mean Corpuscular Volume 85.4 fL (80.0-98.0); Mean Platelet Volume 11.4 fL (9.4-12.4); Monocytes Absolute Auto 0.4 X10*3/uL (0.1-1.2); Monocytes Percent Auto 5.4 % (2-11); Neutrophils Absolute Auto 4.7 x10*3/uL (2.0-8.3); Platelet Count 260 X10*3/uL (160-400); Red Blood Count 5.47 X10*6/uL (4.60-5.80); Red Cell Distribution Width 12.6 % (11.0-16.0); White Blood Count 8.1 X10*3/uL (4.8-10.8)
[2023-09-12 12:54] LABS: Alanine Aminotransferase 72 U/L (0-40); Albumin Level 4.6 g/dL (3.5-5.0); Alkaline Phosphatase 84 U/L (39-117); Anion Gap 12 (12-20); Aspartate Amino Transferase 34 U/L (5-37); Bilirubin Total 0.7 mg/dL (0.0-1.0); Blood Urea Nitrogen 18 mg/dL (9-16); Calcium 9.5 mg/dL (8.4-10.2); Carbon Dioxide 28 mmol/L (22-29); Chloride 104 mmol/L (96-108); Cholesterol 219 mg/dL (<200); Estimated Glomerular Filt Rate > 60; Glucose Fasting 94 mg/dL (60-99); HDL Cholesterol 33 mg/dL (>40); LDL Cholesterol Calculated 160 mg/dL (<100); Potassium 3.8 mmol/L (3.3-5.1); Sodium 140 mmol/L (135-145); Total Protein 8.3 g/dL (6.5-8.0); Triglycerides 133 mg/dL (<150)
[2023-09-12 13:15] LABS: Vitamin D 25-OH Total 14.6 ng/mL (>30)
[2023-09-12 13:43] LABS: Appearance Urine Clear; Color Urine Yellow; Glucose Urine UA Negative (Negative); Leukocyte Esterase Urine Negative (Negative); Nitrite Urine Negative (Negative); Specific Gravity - Urine >= 1.030 (1.005-1.025); UMIC TRIGGER UACC YES; Urine Blood Negative (Negative); Urine Ketones Negative (Negative); Urine Protein 30 (1+) mg/dL (Neg-Trace)
[2023-09-12 13:49] LABS: Bacteria Urine None Seen (None Seen); RBC Urine 0-2 /HPF (0-2); Squamous Epithelial Cell Urine 0-2 /HPF (0-2); WBC Urine 0-5 /HPF (0-5)
== END 2023-09-12 10:14 | disposition home or self-care (01) ==
LOC: HO.LAB 10:13
PROVIDERS: PCP Internal Medicine; Visit Provider Internal Medicine
DX: Z00.00 Encounter for general adult medical examination without abnormal findings (principal); E78.00 Pure hypercholesterolemia, unspecified; E55.9 Vitamin D deficiency, unspecified
CPT/HCPCS: 36415; 80053; 80061; 81001; 81003; 82306; 84443; 85025

== ENCOUNTER 2023-11-25 14:24 | Outpatient (AMB) | payer BC, SELFPAY ==
[2023-11-25 14:28] VITALS: BP 124/80; PULSE 62; O2SAT 98; BMI 31.4
--- NOTE | 2023-11-25 14:28 | MHC.PC.OV ---
Vital Signs 11/25/23 14:28 Height 6 ft 1 in Weight 238 lb BMI 31.4 BP 124/80 Blood Pressure Location Lt brachial Position Sitting Pulse 62 Pulse Source Pulse Oximeter Pulse Oximetry (%) 98 Oxygen Delivery Method Room Air Intake Visit Reasons: 6 month f/u Allergies diclofenac [DICLOFENAC] Allergy (Unknown, Verified 11/25/23 14:58) SHORTNESS OF BREATH Medication List - Last Reconciled 11/25/23 by Dayton Siegel MD albuterol sulfate 90 mcg/actuation 1 inh inhalation Q6-8H PRN cholecalciferol (vitamin D3) 50 mcg PO DAILY 90 days cyclobenzaprine 10 mg PO TID PRN escitalopram oxalate 10 mg PO DAILY 30 days fluticasone propionate 50 mcg/actuation 1 spray intranasal DAILY PRN 30 days ibuprofen 600 mg PO Q8H PRN indomethacin 50 mg PO TID lidocaine 5% (Lidoderm) 1 patch topical DAILY loratadine 10 mg PO DAILY PRN omeprazole 20 mg PO DAILY 30 days Tobacco use date assessed: 11/25/23 Dental Screening Dental Screen Date: 11/25/23 Did you have a dental visit in the last 12 months?: No Did you have a dental problem in the last 6 months where you did not have access to dental care?: No HPI 6 month f/u HPI Details Patient comes in today for his follow up visit States that he feels okay but reports that his wants him to get tested for sleep apnea as she has noticed a few times recently that he has a tendency to stop breathing for a couple of minutes when he is asleep and snoring loudly He would then start coughing or gasping a couple of times before going back to breathing normally Patient denies any increased fatigue lately; denies any daytime somnolence or sleepiness He denies any headaches or dizziness Denies any chest pains, no SOB No nausea/vomiting, no abdominal pain No change in bowel habits noted Needs his Vitamin D Rx refilled He had his follow up labs done a couple of months ago - to discuss his results [facility] Medical History Obesity (BMI 30-39.9) Vitamin D deficiency Depression GERD without esophagitis Overweight (BMI 25.0-29.9) Impaired fasting glucose Elevated LFTs Pure hypercholesterolemia Exertional dyspnea Allergic rhinitis Environmental allergies Surgical History Perineal abscess Family History Mother History of thyroid cancer History of hypertension History of diabetes mellitus Social History Housing: House Alcohol intake: current Alcohol intake frequency: holidays/special occasions only Alcohol type: beer and wine Patient Tobacco Use Status: Former Tobacco user e-Cigarette/Vaping Use: Never Used Second Hand Smoke Exposure: Yes service: No Current occupational status: employed 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 1. Little interest or pleasure in doing things: not at all 2. Feeling down, depressed, or hopeless: not at all 3. Trouble falling or staying asleep, or sleeping too much: not at all 4. Feeling tired or having little energy: not at all 5. Poor appetite or overeating: not at all 6. Feeling bad about yourself - or that you are a failure or have let yourself or your family down: not at all 7. Trouble concentrating on things, such as reading the newspaper or watching television: not at all 8. Moving or speaking so slowly that other people could have noticed. Or the opposite - being so fidgety or restless that you have been moving around a lot more than usual: not at all 9. Thoughts that you would be better off or of hurting yourself in some way: not at all Total score: 0 Depression Screening Interpretation: Negative Depression Screening Done: Yes 50619 - PHQ-9 Billing: Yes Source: Developed by Drs. Peter Dial, Nan Hines, Jagjit Baldwin and colleagues, with an educational shahla from [employer]. Thrive Questionnaire Date Thrive assessed: 11/25/23 I am a: Patient What is your living situation today?: I have a steady place to live Within the past 12 months, did the food you bought not last and you didn't have the money to get more?: Never true Within the past 12 months, did you worry whether your food would run out before you got money to buy more?: Never true Do you have trouble paying for medicines?: No Do you have trouble getting transportation to medical appointments?: No Do you have trouble paying your heating and electricity bill?: No Do you have trouble taking care of your child, family member or friend?: No Do you have trouble with day-to-day activities such as bathing, preparing meals, shopping, managing finances, etc.?: No Are you currently unemployed and looking for a job?: No Are you interested in more education?: No Please select the resources that you would like help with: None Currently or been in a relationship where the following occur: no concerns reported THRIVE Score: 0 AUDIT C Alcohol Use Questionnaire (AUDIT-C) 1. How often do you have a drink containing alcohol?: Monthly or less 2. How many drinks containing alcohol do you have on a typical day when you are drinking?: 1 or 2 3. How often do you have six or more drinks on one occasion?: Never Total Score: 1 Score Reviewed/Action Taken: Yes DIPIKA-7 AMB Questionnaire DIPIKA-7 Date DIPIKA - 7 assessed: 11/25/23 Feeling nervous, anxious, or on edge: 0 = Not at all Not being able to stop or control worryin = Not at all Worrying too much about different things: 0 = Not at all Trouble relaxin = Not at all Being so restless that it is hard to sit still: 0 = Not at all Becoming easily annoyed or irritable: 0 = Not at all Feeling afraid as if something awful might happen: 0 = Not at all Total DIPIKA-7 score (0-4 normal; 5-9 mild; 10-14 moderate; 15-21 severe): 0 Source: Developed by Drs. Peter Dial, Nan Hines, Jagjit Baldwin and colleagues, with an educational shahla from [employer]. DIPIKA-7 Assessment Billing DIPIKA-7 Assessment Tool: DIPIKA-7 Assessment 28842 Review of Systems Const Denies chills, Denies fatigue, Denies fever(s), Denies headache(s) and Reports stops breathing during sleep (see HPI) ENT Denies dysphagia, Denies dizziness, Denies otalgia, Denies headache(s), Denies neck pain, Denies odynophagia and Denies sore throat Card Denies chest pain, Denies irregular heart rhythm, Denies palpitations and Denies dyspnea Resp Denies cough, Denies dyspnea and Denies wheezing GI Denies abdominal pain, Denies constipation, Denies dysphagia, Denies heartburn, Denies diarrhea, Denies nausea, Denies odynophagia and Denies vomiting Denies difficulty urinating, Denies dysuria and Denies urinary frequency Musc Denies back pain, Denies arthralgias and Denies neck pain Skin/Breast Denies rash Neuro Denies dizziness, Denies headache(s) and Denies paresthesias Endo Denies fatigue and Denies palpitations Aller/Immun Denies wheezing Physical exam (Primary Care) Vital Signs: Last Vital Signs Pulse 62 11/25/23 14:28 BP 124/80 11/25/23 14:28 Pulse Ox 98 11/25/23 14:28 Oxygen Delivery Method Room Air 11/25/23 14:28 BMI result Body Mass Index 31.4 Tobacco/Smoking Status: Tobacco use Status Tobacco use date assessed 11/25/23 11/25/23 14:30 Patient Tobacco Use Status Former Tobacco user 11/25/23 14:30 e-Cigarette/Vaping Use Never Used 11/25/23 14:30 PHQ-9: PHQ-9 Score PHQ-9: Total score 0 11/25/23 15:03 Depression Screening Interpretation: Negative Thrive Assessment: Date of Thrive Assessment Date Thrive assessed 05/19/23 11/25/23 14:30 Currently or been in a relationship where the following occur: no concerns reported Const General: no acute distress and alert HENMT Ears: TM's normal bilaterally and EAC's normal Throat: Yes posterior oropharynx normal and Yes tonsils normal (no TP congestion) Neck Neck: Yes no lymphadenopathy and Yes supple Thyroid: Thyroid normal Resp Auscultation: clear to auscultation bilaterally, no rales and no wheezes Cardio Rate: regular rate Rhythm: regular rhythm Heart sounds: no murmurs GI Palpation (GI): Soft to palpation and nontender Auscultation: normal bowel sounds General: Yes no CVA tenderness Back/Spine/Pelvis Back: no CVA tenderness Thoracic/Lumbar Spine: No lumbar spinal tenderness Skin Rashes: no rashes Extrem General: Yes no clubbing, cyanosis or edema Results Reviewed Results Reviewed: Laboratory Tests 03/04/22 09/12/23 09:49 10:30 WBC 6.6 8.1 Hgb 14.8 15.5 Hct 45.5 46.7 Plt Count 235 260 Sodium 140 Potassium 3.8 Creatinine 0.91 Estimated GFR > 60 Fasting Glucose 94 Calcium 9.5 AST 34 ALT 72 H Triglycerides 133 Cholesterol 219 H LDL Cholesterol, Calc 160 H HDL Cholesterol 33 L 25-OH Vitamin D Total 14.6 L TSH 2.40 Ur Specific [place] >= 1.030 H Urine Protein 30 (1+) H Urine Glucose (UA) Negative Urine Blood Negative Urine Nitrite Negative Ur Leukocyte Esterase Negative Assessment and Plan Assessment & Plan (1) Pure hypercholesterolemia: Code(s): E78.00 - Pure hypercholesterolemia, unspecified Plan: Results of his labs done a couple of months ago reviewed and discussed with patient - he is advised that his cholesterol levels are still elevated and have increased slightly from previous and his LDL is now at 160 mg/dl Reinforced low cholesterol diet He is advised that he should consider starting on medication to help lower his cholesterol levels if he still cannot get his cholesterol levels improved significantly over the next few months Will have him recheck his fasting lipids and labs in 6 months for follow-up (2) Elevated LFTs: Code(s): R79.89 - Other specified abnormal findings of blood chemistry Plan: His serum ALT level was still elevated at 72 on his labs done a couple of months ago (was at 79 back in November 2022; AST was normal Discussed again that these are most likely due to his weight and his cholesterol levels Will continue to monitor his LFTs regularly (3) Impaired fasting glucose: Code(s): R73.01 - Impaired fasting glucose Plan: Reinforced low calorie diet/exercise as tolerated FBS was slightly elevated at 107 mg/dl on his labs done late last year but was normal at 94 mg/dl back in September 2023 Will recheck his FBS and also check his HgbA1c in 6 months for follow up / further evaluation (4) Elevated TSH: Code(s): R79.89 - Other specified abnormal findings of blood chemistry Plan: His serum TSH level was normal on his recent labs; patient remains clinically euthyroid Will continue to monitor his TFTs regularly (5) Allergic rhinitis: Code(s): J30.9 - Allergic rhinitis, unspecified Qualifiers: Allergic rhinitis trigger: unspecified Allergic rhinitis seasonality: unspecified Qualified Code(s): J30.9 - Allergic rhinitis, unspecified Plan: Continue Loratadine 10 mg QD PRN and Fluticasone 50 mcg nasal spray QD PRN (6) Witnessed apneic spells: Code(s): R06.81 - Apnea, not elsewhere classified Plan: Will refer him to Sleep Medicine for further evaluation and management (7) GERD without esophagitis: Code(s): K21.9 - Gastro-esophageal reflux disease without esophagitis Plan: Dietary restrictions reinforced Continue Omeprazole 20 mg QD (8) Vitamin D deficiency: Code(s): E55.9 - Vitamin D deficiency, unspecified Plan: Continue Vitamin D3 2000 units QD - Rx refilled (9) Anxiety: Code(s): F41.9 - Anxiety disorder, unspecified Plan: Continue Escitalopram 10 mg QD (10) Depression: Code(s): F32.A - Depression, unspecified Qualifiers: Depression Type: major depressive disorder Major depression recurrence: recurrent Active/Remission status: currently active Major depression episode severity: unspecified Qualified Code(s): F33.9 - Major depressive disorder, recurrent, unspecified Plan: Continue Escitalopram 10 mg QD (11) Obesity (BMI 30-39.9): Code(s): E66.9 - Obesity, unspecified Plan: Reinforced diet/exercise as tolerated/lose weight Plan To return in 6 months for his next annual physical examination Orders: Orders Vitamin D 25-OH Total 6 Months E55.9 - Vitamin D deficiency, unspecified, Z00.00 - Encounter for general adult medical examination without abnormal findings Complete Blood Count Auto Diff 6 Months D64.9 - Anemia, unspecified, Z00.00 - Encounter for general adult medical examination without abnormal findings Comprehensive [place]. Panel Fast 6 Months E78.00 - Pure hypercholesterolemia, unspecified, Z00.00 - Encounter for general adult medical examination without abnormal findings Lipid Panel 6 Months E78.00 - Pure hypercholesterolemia, unspecified, Z00.00 - Encounter for general adult medical examination without abnormal findings TSH reflex Free T4 6 Months E78.00 - Pure hypercholesterolemia, unspecified, Z00.00 - Encounter for general adult medical examination without abnormal findings UA CC w/rflx Micro + Cult 6 Months R30.0 - Dysuria, Z00.00 - Encounter for general adult medical examination without abnormal findings Referrals Sleep Medicine Referral R06.81 - Apnea, not elsewhere classified Medications: Refilled cholecalciferol (vitamin D3) 50 mcg PO DAILY 90 days 90 caps 3RF E55.9 - Vitamin D deficiency, unspecified Coding Level of Care Code Est Pt Level 4 (84896) Diagnoses Pure hypercholesterolemia E78.00 Elevated LFTs R79.89 Impaired fasting glucose R73.01 Elevated TSH R79.89 Allergic rhinitis, unspecified seasonality, unspecified trigger J30.9 Allergic rhinitis trigger: unspecified Allergic rhinitis seasonality: unspecified Witnessed apneic spells R06.81 GERD without esophagitis K21.9 Vitamin D deficiency E55.9 Anxiety F41.9 Episode of recurrent major depressive disorder, unspecified depression episode severity F33.9 Depression Type: major depressive disorder Major depression recurrence: recurrent Active/Remission status: currently active Major depression episode severity: unspecified Obesity (BMI 30-39.9) E66.9 Additional Codes DIPIKA-7 Assessment Billing - DIPIKA-7 Assessment Tool: DIPIKA-7 Assessment 27118 ([id number])
== END 2023-11-25 15:05 | disposition home or self-care (01) ==
PROVIDERS: PCP Internal Medicine; Visit Provider Internal Medicine
DX: E78.00 Pure hypercholesterolemia, unspecified (principal); R74.01 Elevation of levels of liver transaminase levels; R73.01 Impaired fasting glucose; F33.9 Major depressive disorder, recurrent, unspecified; R06.81 Apnea, not elsewhere classified; K21.9 Gastro-esophageal reflux disease without esophagitis; E55.9 Vitamin D deficiency, unspecified; F41.9 Anxiety disorder, unspecified
CPT/HCPCS: 99214

== ENCOUNTER 2024-02-13 10:01 | Outpatient (AMB) | payer BC, SELFPAY ==
[2024-02-13 10:17] VITALS: BP 128/80; PULSE 79; TEMP 37; O2SAT 97; BMI 30.9
--- NOTE | 2024-02-13 10:17 | MHC.OFFWIV ---
Intake Vital Signs 02/13/24 10:17 Height 6 ft 1 in Weight 234 lb BMI 30.9 BP 128/80 Blood Pressure Location Rt brachial Position Sitting Pulse 79 Pulse Source Pulse Oximeter Temp 98.6 F Temp Source Oral Pulse Oximetry (%) 97 Oxygen Delivery Method Room Air Intake Visit Reasons: EP congestion, sore throat, body ache (Masked) Intake Note: pt c/o Congestion, sore throat and body aches. Dizziness. Started 2 days ago Patient Tobacco Use Status: Former Tobacco user Allergies diclofenac [DICLOFENAC] Allergy (Unknown, Verified 02/13/24 10:18) SHORTNESS OF BREATH Do you need a note to return to daycare/school/sports/work: Yes HPI HPI Comments History of Present Illness Details Patient is a 33-year-old male complaining of 3 days of a sore throat, body aches and chills. He states his niece was recently diagnosed with strep throat. He denies any cough, congestion or shortness of breath. He has not tried anything to make it feel better. [facility] Medical History Obesity (BMI 30-39.9) Vitamin D deficiency Depression GERD without esophagitis Overweight (BMI 25.0-29.9) Impaired fasting glucose Elevated LFTs Pure hypercholesterolemia Exertional dyspnea Allergic rhinitis Environmental allergies Surgical History Perineal abscess Family History Mother History of thyroid cancer History of hypertension History of diabetes mellitus Social History Housing: House Alcohol intake: current Alcohol intake frequency: holidays/special occasions only Alcohol type: beer and wine Patient Tobacco Use Status: Former Tobacco user e-Cigarette/Vaping Use: Never Used Second Hand Smoke Exposure: Yes service: No Current occupational status: employed 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: No Hearing needs: No Vision needs: No Review of Systems Const All systems reviewed & are unremarkable except as noted in HPI and below Physical Exam Vital Signs: Last Vital Signs Temp 98.6 F 02/13/24 10:17 Pulse 79 02/13/24 10:17 BP 128/80 02/13/24 10:17 Pulse Ox 97 02/13/24 10:17 Oxygen Delivery Method Room Air 02/13/24 10:17 BMI result Body Mass Index 30.9 Const General: cooperative, healthy appearing, comfortable and no acute distress Orientation/consciousness: patient oriented x3 Limitations: no limitations HEENT Head: Yes normal to inspection Ears: hearing grossly normal bilaterally and external ears normal General nose exam: Normal external nose present, Normal nares present and No nasal discharge present Face and sinus: Yes normal facial exam Throat: Yes tonsils normal, Yes uvula midline and Yes posterior oropharynx abnormal (Erythema no exudate however difficult to see) Eyes General: appearance normal, both eyes and all related structures Neck Neck: Yes normal visual inspection Resp Effort & Inspection: normal respiratory effort, able to speak in complete sentences, no respiratory distress, not tachypneic, no tripod positioning and no use of accessory muscles Skin General skin exam: no rashes or lesions noted Neuro General: patient oriented x3 Extrem General: Yes normal to inspection and Yes no clubbing, cyanosis or edema Results AMB Rapid Strep AMB Rapid Strep Positive Last Edit by Jose Carlos Olivo CMA on 02/13/24 10:34 Assessment & Plan Assessment & Plan (1) Strep pharyngitis: Code(s): J02.0 - Streptococcal pharyngitis Plan: Sent antibiotic to pharmacy as rapid strep was positive. Also sent flu COVID RSV. Recommended trying to stay hydrated with cool foods such as popsicles, and treating other symptoms with [id number] medications. we will write work note for today. Plan See above Orders: Orders SARS-CoV2/FLU/RSV Today J06.9 - Acute upper respiratory infection, unspecified AMB Rapid Strep Screen Today Z13.9 - Encounter for screening, unspecified Medications: New amoxicillin 500 mg PO BID 20 tabs 0RF Coding Level of Care Code Est Pt Level 3 (77313) Diagnoses Strep pharyngitis J02.0
== END 2024-02-13 10:40 | disposition home or self-care (01) ==
PROVIDERS: PCP Internal Medicine; Visit Provider Physician Assistant
DX: Z13.9 Encounter for screening, unspecified (principal); J02.0 Streptococcal pharyngitis
CPT/HCPCS: 87880; 99213

== ENCOUNTER 2024-02-13 10:31 | Outpatient (REF) | payer BC, SELFPAY ==
[2024-02-13 13:55] LABS: Influenza A PCR NEGATIVE (Negative); Influenza B PCR NEGATIVE (Negative); Resp Syncy Virus RNA Qual PCR NEGATIVE (Negative); SARS COV2 PCR INHOUSE NEGATIVE (Negative)
== END 2024-02-13 10:32 | disposition home or self-care (01) ==
LOC: HO.LAB 10:31
PROVIDERS: Visit Provider Physician Assistant
DX: J06.9 Acute upper respiratory infection, unspecified (principal)
CPT/HCPCS: 0241U

== ENCOUNTER 2024-05-26 15:29 | Outpatient (AMB) | payer BC, SELFPAY ==
[2024-05-26 15:30] VITALS: BP 120/84; PULSE 63; O2SAT 97; BMI 31.0
--- NOTE | 2024-05-26 15:30 | MHC.PC.OV ---
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: No Accompanied by: Self / Same As Patient Allergies diclofenac [DICLOFENAC] Allergy (Unknown, Verified 05/26/24 16:10) SHORTNESS OF BREATH Medication List - Last Reconciled 05/26/24 by Dayton Siegel MD albuterol sulfate 90 mcg/actuation 1 inh inhalation Q6-8H PRN cholecalciferol (vitamin D3) 50 mcg PO DAILY 90 days cyclobenzaprine 10 mg PO TID PRN escitalopram oxalate 10 mg PO DAILY 30 days fluticasone propionate 50 mcg/actuation 1 spray intranasal DAILY PRN 30 days ibuprofen 600 mg PO Q8H PRN loratadine 10 mg PO DAILY PRN Tobacco use date assessed: 05/26/24 Dental Screening Dental Screen Date: 05/26/24 Did you have a dental visit in the last 12 months?: No Did you have a dental problem in the last 6 months where you did not have access to dental care?: No Was dental information given to patient?: No HPI Annual Exam HPI Details Patient comes in today for his annual physical examination States that he feels okay although he reports experiencing some on and off dizziness at times He denies any headaches Denies any chest pains, no SOB No nausea/vomiting, no abdominal pain No change in bowel habits noted He denies any acute urinary symptoms He was not able to get his follow up labs done prior to his appointment today - states that he will try to get them done FAITH sometime in the next few days [facility] Medical History (Updated 05/27/24 @ 05:35 by Dayton Siegel MD) Obesity (BMI 30-39.9) Vitamin D deficiency Depression GERD without esophagitis Impaired fasting glucose Elevated LFTs Pure hypercholesterolemia Exertional dyspnea Allergic rhinitis Environmental allergies Surgical History Perineal abscess Family History Mother History of thyroid cancer History of hypertension History of diabetes mellitus Social History Housing: House Alcohol intake: current Alcohol intake frequency: holidays/special occasions only Alcohol type: beer and wine Patient Tobacco Use Status: Former Tobacco user e-Cigarette/Vaping Use: Never Used Second Hand Smoke Exposure: Yes service: No Current occupational status: employed 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 1. Little interest or pleasure in doing things: not at all 2. Feeling down, depressed, or hopeless: not at all 3. Trouble falling or staying asleep, or sleeping too much: not at all 4. Feeling tired or having little energy: not at all 5. Poor appetite or overeating: not at all 6. Feeling bad about yourself - or that you are a failure or have let yourself or your family down: not at all 7. Trouble concentrating on things, such as reading the newspaper or watching television: not at all 8. Moving or speaking so slowly that other people could have noticed. Or the opposite - being so fidgety or restless that you have been moving around a lot more than usual: not at all 9. Thoughts that you would be better off or of hurting yourself in some way: not at all Total score: 0 Depression Screening Interpretation: Negative (he is on Rx for mood disorder/depression) Depression Screening Done: Yes 66243 - PHQ-9 Billing: Yes Source: Developed by Drs. Peter Dial, Nan Hines, Jagjit Baldwin and colleagues, with an educational shahla from [employer]. Thrive Questionnaire Date Thrive assessed: 05/26/24 I am a: Patient What is your living situation today?: I choose not to answer this question Within the past 12 months, did the food you bought not last and you didn't have the money to get more?: Never true Within the past 12 months, did you worry whether your food would run out before you got money to buy more?: Never true Do you have trouble paying for medicines?: No Do you have trouble getting transportation to medical appointments?: No Do you have trouble paying your heating and electricity bill?: No Do you have trouble taking care of your child, family member or friend?: No Do you have trouble with day-to-day activities such as bathing, preparing meals, shopping, managing finances, etc.?: No Are you currently unemployed and looking for a job?: No Are you interested in more education?: No Please select the resources that you would like help with: None Currently or been in a relationship where the following occur: I choose not to answer THRIVE Score: 0 AUDIT C Alcohol Use Questionnaire (AUDIT-C) 1. How often do you have a drink containing alcohol?: Never 3. How often do you have six or more drinks on one occasion?: Never Total Score: 0 Score Reviewed/Action Taken: Yes DIPIKA-7 AMB Questionnaire DIPIKA-7 Date DIPIKA - 7 assessed: 05/26/24 Feeling nervous, anxious, or on edge: 1 = Several days Not being able to stop or control worryin = Several days Worrying too much about different things: 0 = Not at all Trouble relaxin = Not at all Being so restless that it is hard to sit still: 1 = Several days Becoming easily annoyed or irritable: 1 = Several days Feeling afraid as if something awful might happen: 1 = Several days Total DIPIKA-7 score (0-4 normal; 5-9 mild; 10-14 moderate; 15-21 severe): 5 Source: Developed by Drs. Peter Dial, Nan Hines, Jagjit Baldwin and colleagues, with an educational shahla from [employer]. Review of Systems Const Denies chills, Reports difficulty sleeping, Denies fatigue, Denies fever(s), Denies headache(s) and Reports stops breathing during sleep Eyes Denies blurry vision, Denies change in vision, Denies irritation and Denies itchy eyes ENT Denies dysphagia, Reports dizziness (at times), Denies otalgia, Denies headache(s), Denies neck pain, Denies odynophagia and Denies sore throat Card Denies chest pain, Denies irregular heart rhythm, Denies palpitations and Denies dyspnea Resp Denies chest congestion, Denies cough and Denies dyspnea GI Denies abdominal pain, Denies constipation, Denies dysphagia, Denies heartburn, Denies diarrhea, Denies nausea, Denies odynophagia and Denies vomiting Denies difficulty urinating, Denies dysuria and Denies urinary frequency Musc Denies back pain, Denies arthralgias and Denies neck pain Skin/Breast Denies lesions and Denies rash Neuro Reports dizziness (at times), Denies headache(s) and Denies paresthesias Psych Denies anxiety and Denies depression Endo Denies fatigue and Denies palpitations Aller/Immun Denies itchy eyes Physical exam (Primary Care) Vital Signs: Last Vital Signs Pulse 63 05/26/24 15:30 BP 120/84 05/26/24 15:30 Pulse Ox 97 05/26/24 15:30 Oxygen Delivery Method Room Air 05/26/24 15:30 BMI result Body Mass Index 31.0 Tobacco/Smoking Status: Tobacco use Status Tobacco use date assessed 05/26/24 05/26/24 15:37 Patient Tobacco Use Status Former Tobacco user 05/26/24 15:37 e-Cigarette/Vaping Use Never Used 05/26/24 15:37 PHQ-9: PHQ-9 Score PHQ-9: Total score 0 05/26/24 16:17 Depression Screening Interpretation: Negative (he is on Rx for mood disorder/depression) Thrive Assessment: Date of Thrive Assessment Date Thrive assessed 05/26/24 05/26/24 15:37 Currently or been in a relationship where the following occur: I choose not to answer Const General: no acute distress, alert and awake Orientation/consciousness: patient oriented x3 HENMT Head: Yes normocephalic and Yes atraumatic Ears: external ears normal, TM's normal bilaterally and EAC's normal General nose exam: No nasal discharge present Face and sinus: Yes normal facial exam and Yes sinuses nontender Teeth and gingiva: dentition normal Throat: Yes posterior oropharynx normal and Yes tonsils normal (no TP congestion) Eyes Eyelids: Yes eyelids normal Conjunctivae: conjunctivae normal Pupils: Equal, round and reactive pupils present EOM: EOMs intact bilaterally Neck Neck: Yes supple and No lymphadenopathy Thyroid: Thyroid normal Resp Auscultation: clear to auscultation bilaterally, no rales and no wheezes Cardio Rate: regular rate Rhythm: regular rhythm Heart sounds: no murmurs GI Palpation (GI): Soft to palpation, nontender and No hepatosplenomegaly present Auscultation: normal bowel sounds General: Yes no CVA tenderness Back/Spine/Pelvis Back: no CVA tenderness Thoracic/Lumbar Spine: thoracic and lumbar spine normal to inspection Skin Lesions: no lesions Rashes: no rashes Neuro General: patient oriented x3, moves all extremities, no focal motor deficits and CN's II-XI intact bilaterally Cranial nerves: Yes Equal, round and reactive pupils present Cognition (Neuro): normal cognition Gait exam (Neuro): Normal gait present Extrem General: Yes no clubbing, cyanosis or edema Coding Level of Care Code Est Pt Prev Care 18-39y(83604) Diagnoses Annual physical exam Z00.00 Pure hypercholesterolemia E78.00 Elevated LFTs R79.89 Impaired fasting glucose R73.01 Elevated TSH R79.89 Allergic rhinitis, unspecified seasonality, unspecified trigger J30.9 Allergic rhinitis trigger: unspecified Allergic rhinitis seasonality: unspecified Witnessed apneic spells R06.81 GERD without esophagitis K21.9 Vitamin D deficiency E55.9 Insomnia, unspecified type G47.00 Insomnia type: unspecified Anxiety F41.9 Episode of recurrent major depressive disorder, unspecified depression episode severity F33.9 Depression Type: major depressive disorder Major depression recurrence: recurrent Active/Remission status: currently active Major depression episode severity: unspecified Obesity (BMI 30-39.9) E66.9 Additional Codes PHQ-9 - 50116 - PHQ-9 Billing: Yes ([id number]) Assessment & Plan Assessment & Plan (1) Annual physical exam: Code(s): Z00.00 - Encounter for general adult medical examination without abnormal findings Category: Medical Plan: Check labs FAITH - he is reminded that his labs were previously ordered and all he has to do is to present to the registration desk at the hospital lobby as soon as he can to get this started and his labs done (2) Pure hypercholesterolemia: Code(s): E78.00 - Pure hypercholesterolemia, unspecified Category: Medical Plan: Reinforced low cholesterol diet He is reminded that his cholesterol levels were elevated when they were last checked in September 2023 and they have increased slightly from previous - his LDL back then was at 160 mg/dl He is again advised that he should consider starting on medication(s) to help lower his cholesterol levels if he still is not able to get his cholesterol levels improved significantly by this time - we will have to see how his numbers are once he gets his labs done Will have him recheck his fasting lipids and labs again in 6 months for follow-up (3) Elevated LFTs: Code(s): R79.89 - Other specified abnormal findings of blood chemistry Category: Medical Plan: His serum ALT level was still elevated at 72 on his labs done back in September 2023 (was at 79 back in November 2022; AST was normal then) Have discussed with patient that these are most likely due to his weight and his cholesterol levels Will continue to monitor his LFTs regularly (4) Impaired fasting glucose: Code(s): R73.01 - Impaired fasting glucose Category: Medical Plan: Reinforced low calorie diet/exercise as tolerated His FBS was slightly elevated at 107 mg/dl on his labs done late last year but was normal at 94 mg/dl back in September 2023 Will recheck his FBS and also check his HgbA1c for follow up / further evaluation (5) Elevated TSH: Code(s): R79.89 - Other specified abnormal findings of blood chemistry Category: Medical Plan: His serum TSH level was normal on his most recent labs done back in September 2023; patient remains clinically euthyroid Will continue to monitor his TFTs regularly (6) Allergic rhinitis: Code(s): J30.9 - Allergic rhinitis, unspecified Category: Medical Qualifiers: Allergic rhinitis trigger: unspecified Allergic rhinitis seasonality: unspecified Qualified Code(s): J30.9 - Allergic rhinitis, unspecified Plan: Continue Loratadine 10 mg QD PRN and Fluticasone 50 mcg nasal spray QD PRN (7) Witnessed apneic spells: Code(s): R06.81 - Apnea, not elsewhere classified Category: Medical Plan: He has been referred to Sleep Medicine for further evaluation and he is now scheduled for an in-lab sleep study at the end of the month (06/07/24) (8) GERD without esophagitis: Code(s): K21.9 - Gastro-esophageal reflux disease without esophagitis Category: Medical Plan: Dietary restrictions reinforced Continue Omeprazole 20 mg QD (9) Vitamin D deficiency: Code(s): E55.9 - Vitamin D deficiency, unspecified Category: Medical Plan: Continue Vitamin D3 2000 units QD (10) Insomnia: Code(s): G47.00 - Insomnia, unspecified Category: Medical Qualifiers: Insomnia type: unspecified Qualified Code(s): G47.00 - Insomnia, unspecified Plan: Sleep hygiene discussed Will have patient try taking Melatonin 10 mg Q HS PRN (11) Anxiety: Code(s): F41.9 - Anxiety disorder, unspecified Category: Medical Plan: Continue Escitalopram 10 mg QD (12) Depression: Code(s): F32.A - Depression, unspecified Category: Medical Qualifiers: Depression Type: major depressive disorder Major depression recurrence: recurrent Active/Remission status: currently active Major depression episode severity: unspecified Qualified Code(s): F33.9 - Major depressive disorder, recurrent, unspecified Plan: Continue Escitalopram 10 mg QD (13) Obesity (BMI 30-39.9): Code(s): E66.9 - Obesity, unspecified Category: Medical Plan: Reinforced diet/exercise as tolerated/lose weight Plan Follow up in 6 months Orders: Orders Hemoglobin A1c Today R73.01 - Impaired fasting glucose Medications: New melatonin 10 mg PO BEDTIME 30 days PRN 30 caps 5RF sleep
== END 2024-05-26 16:18 | disposition home or self-care (01) ==
PROVIDERS: PCP Internal Medicine; Visit Provider Internal Medicine
DX: Z00.00 Encounter for general adult medical examination without abnormal findings (principal); E78.00 Pure hypercholesterolemia, unspecified; F33.9 Major depressive disorder, recurrent, unspecified; R73.01 Impaired fasting glucose; E66.9 Obesity, unspecified; Z68.31 Body mass index [BMI] 31.0-31.9, adult; J30.9 Allergic rhinitis, unspecified; R06.81 Apnea, not elsewhere classified; K21.9 Gastro-esophageal reflux disease without esophagitis; E55.9 Vitamin D deficiency, unspecified; G47.00 Insomnia, unspecified; F41.9 Anxiety disorder, unspecified

== ENCOUNTER → 2024-05-26 15:29 | Outpatient (BNVA) | payer BC, SELFPAY | PROVIDERS: PCP Internal Medicine; Visit Provider Internal Medicine | DX: Z00.00 Encounter for general adult medical examination without abnormal findings (principal); E78.00 Pure hypercholesterolemia, unspecified; R79.89 Other specified abnormal findings of blood chemistry; R73.01 Impaired fasting glucose; J30.9 Allergic rhinitis, unspecified; R06.81 Apnea, not elsewhere classified; K21.9 Gastro-esophageal reflux disease without esophagitis; E55.9 Vitamin D deficiency, unspecified; G47.00 Insomnia, unspecified; F41.9 Anxiety disorder, unspecified; F33.9 Major depressive disorder, recurrent, unspecified; E66.9 Obesity, unspecified; Z68.31 Body mass index [BMI] 31.0-31.9, adult; Z79.899 Other long term (current) drug therapy | CPT/HCPCS: 96127 ==

== ENCOUNTER 2024-05-29 08:07 | Outpatient (REF) | payer BC, SELFPAY ==
[2024-05-29 08:20] LABS: MANUAL DIFF FLAG NO
[2024-05-29 09:38] LABS: Basophils Absolute Auto 0.1 X10*3/uL (0.0-0.2); Basophils Percent Auto 1.3 % (0-2); Eosinophils Absolute Auto 0.3 X10*3/uL (0.0-0.4); Eosinophils Percent Auto 3.4 % (0-4); Hematocrit 46.2 % (42.0-52.0); Hemoglobin 15.5 g/dl (14.0-18.0); Imm Gran Abs Auto 0.06 X10*3/uL (0.00-0.03); Imm Gran Pct Auto 0.7 % (0.0-0.4); Lymphocytes Absolute Auto 2.8 X10*3/uL (1.2-4.9); Lymphocytes Percent Auto 31.3 % (20-40); Mean Corpuscular HGB Conc 33.5 g/dl (31.0-36.0); Mean Corpuscular Hemoglobin 28.9 pg (27.0-33.0); Mean Corpuscular Volume 86.2 fL (80.0-98.0); Mean Platelet Volume 11.7 fL (9.4-12.4); Monocytes Absolute Auto 0.5 X10*3/uL (0.1-1.2); Monocytes Percent Auto 5.5 % (2-11); Neutrophils Absolute Auto 5.2 x10*3/uL (2.0-8.3); Neutrophils Percent Auto 57.8 % (45-73); Platelet Count 261 X10*3/uL (160-400); Red Blood Count 5.36 X10*6/uL (4.60-5.80); Red Cell Distribution Width 13.1 % (11.0-16.0)
[2024-05-29 09:44] LABS: Estimated Average Glucose 111 mg/dL; Hemoglobin A1C 145.0042 umol/L; Hemoglobin A1c % 5.5 % (<6.0); Total Hemoglobin (HGBA1C) 3904.7692 umol/L
[2024-05-29 10:03] LABS: Appearance Urine Cloudy; Color Urine Yellow; Glucose Urine UA Negative (Negative); Leukocyte Esterase Urine Negative (Negative); Nitrite Urine Negative (Negative); PH 5.5 (5.0-9.0); Specific Gravity - Urine 1.025 (1.005-1.025); Urine Blood Negative (Negative); Urine Ketones Negative (Negative); Urine Protein Negative (Neg-Trace)
[2024-05-29 10:25] LABS: Albumin Level 4.6 g/dL (3.5-5.0); Alkaline Phosphatase 83 U/L (39-117); Anion Gap 13 (12-20); Aspartate Amino Transferase 44 U/L (5-37); Bilirubin Total 0.4 mg/dL (0.0-1.0); Blood Urea Nitrogen 15 mg/dL (9-16); Calcium 9.3 mg/dL (8.4-10.2); Carbon Dioxide 29 mmol/L (22-29); Chloride 104 mmol/L (96-108); Cholesterol 231 mg/dL (<200); Estimated Glomerular Filt Rate > 60; Glucose Fasting 105 mg/dL (60-99); HDL Cholesterol 32 mg/dL (>40); LDL Cholesterol Calculated 173 mg/dL (<100); Sodium 142 mmol/L (135-145); Total Protein 8.1 g/dL (6.5-8.0); Triglycerides 133 mg/dL (<150)
[2024-05-29 10:30] LABS: Alanine Aminotransferase 97 U/L (0-40)
[2024-05-29 10:39] LABS: TSH reflex Free T4 2.91 uIU/mL (0.32-4.0); Vitamin D 25-OH Total 21.4 ng/mL (>30)
== END 2024-05-29 08:08 | disposition home or self-care (01) ==
LOC: HO.LAB 08:07
PROVIDERS: PCP Internal Medicine; Visit Provider Internal Medicine
DX: Z00.00 Encounter for general adult medical examination without abnormal findings (principal); E55.9 Vitamin D deficiency, unspecified; D64.9 Anemia, unspecified; E78.00 Pure hypercholesterolemia, unspecified; R30.0 Dysuria; R73.01 Impaired fasting glucose
CPT/HCPCS: 36415; 80053; 80061; 81003; 82306; 83036; 84443; 85025

== ENCOUNTER 2024-06-03 08:02 | Outpatient (AMB) | payer BC, SELFPAY ==
[2024-06-03 08:10] VITALS: BP 122/80; PULSE 80; TEMP 36.8; O2SAT 99; BMI 31.7
--- NOTE | 2024-06-03 08:10 | MHC.OFFWIV ---
Intake Vital Signs 06/03/24 08:10 Height 6 ft 1 in Weight 240 lb BMI 31.7 BP 122/80 Blood Pressure Location Rt brachial Position Sitting Pulse 80 Pulse Source Pulse Oximeter Temp 98.3 F Temp Source Oral Pulse Oximetry (%) 99 Oxygen Delivery Method Room Air Intake Visit Reasons: EP chills, Vomiting, Diarrhea Intake Note: Patient here for diarrhea, vomiting, chills and dizziness that started yesterday. States his had it the day before but he has more symptoms then she did. Patient Tobacco Use Status: Former Tobacco user Allergies diclofenac [DICLOFENAC] Allergy (Unknown, Verified 06/03/24 08:20) SHORTNESS OF BREATH Do you need a note to return to daycare/school/sports/work: Yes HPI EP chills, Vomiting, Diarrhea HPI Details This note is constructed using voice recognition software. While every effort has been made to ensure accuracy, director of digital marketing errors may have been included. The patient is a 33 year old male who presents to the clinic today with nausea, vomiting, diarrhea, low-grade fevers since yesterday. He reports that his had the same symptoms the day before, however she resolved. He is hydrating and having a gentle diet, able to keep in Pedialyte for hydration. He has not taken any Tylenol or Motrin for the fever as he has some epigastric tenderness. FORMERLY [facility], [facility] Medical History (Updated 05/27/24 @ 05:40 by Dayton Siegel MD) Obesity (BMI 30-39.9) Vitamin D deficiency Depression GERD without esophagitis Impaired fasting glucose Elevated LFTs Pure hypercholesterolemia Exertional dyspnea Allergic rhinitis Environmental allergies Surgical History Perineal abscess Family History Mother History of thyroid cancer History of hypertension History of diabetes mellitus Social History Housing: House Alcohol intake: current Alcohol intake frequency: holidays/special occasions only Alcohol type: beer and wine Patient Tobacco Use Status: Former Tobacco user e-Cigarette/Vaping Use: Never Used Second Hand Smoke Exposure: Yes service: No Current occupational status: employed 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: No Hearing needs: No Vision needs: No Review of Systems Const All systems reviewed & are unremarkable except as noted in HPI and below Physical Exam Vital Signs: Last Vital Signs Temp 98.3 F 06/03/24 08:10 Pulse 80 06/03/24 08:10 BP 122/80 06/03/24 08:10 Pulse Ox 99 06/03/24 08:10 Oxygen Delivery Method Room Air 06/03/24 08:10 BMI result Body Mass Index 31.7 Const General: cooperative, healthy appearing, comfortable, no acute distress and well developed Orientation/consciousness: patient oriented x3 Limitations: no limitations HEENT Head: Yes normal to inspection Neck Neck: Yes normal visual inspection Resp Effort & Inspection: normal respiratory effort and able to speak in complete sentences Auscultation: clear to auscultation bilaterally Cardio Jugular venous distension: no JVD Rate: regular rate Rhythm: regular rhythm Heart sounds: S1 normal heart sound present, S2 normal heart sound present and normal S1 and S2 GI Inspection: Yes normal to inspection Palpation (GI): Soft to palpation and Tenderness to palpation present (GI) in the epigastrum Percussion: Yes normal to percussion Auscultation: normal bowel sounds Skin General skin exam: no rashes or lesions noted Neuro General: patient oriented x3 Psych Appearance: grossly normal Attitude: cooperative Assessment & Plan Assessment & Plan (1) Viral gastroenteritis: Code(s): A08.4 - Viral intestinal infection, unspecified Plan: Advised avoidance acidic foods, carbonated beverages, large meals, or anything to eat or drink within 2-3 hours of lying down. Consider trial famotidine for at least 2 weeks, for symptomatic management and then p.r.n. after that. Has adequate efforts at hydration. Zofran prescribed for symptomatic management of nausea. Advised Tylenol/Motrin for fever. Advised patient to follow up worsening or failure to resolve. Letter provided for absence from work today. Plan See above for full details and plan. Medications: New ondansetron 4 mg PO Q8H 3 days PRN 9 tabs 0RF nausea and vomiting Coding Level of Care Code Est Pt Level 3 (95631) Diagnoses Viral gastroenteritis A08.4
== END 2024-06-03 08:46 | disposition home or self-care (01) ==
PROVIDERS: PCP Internal Medicine; Visit Provider Registered Nurse
DX: A08.4 Viral intestinal infection, unspecified (principal)

== ENCOUNTER → 2024-06-03 08:02 | Outpatient (BNVA) | payer BC, SELFPAY | PROVIDERS: PCP Internal Medicine; Visit Provider Registered Nurse ==

== ENCOUNTER 2024-06-07 08:19 | Outpatient (AMB) | payer BC, SELFPAY ==
[2024-06-07 08:30] VITALS: BP 128/64; PULSE 64; O2SAT 97; BMI 30.9
--- NOTE | 2024-06-07 08:30 | MHC.OFFVIS ---
Vital Signs 06/07/24 08:30 Height 6 ft 1 in Weight 234 lb 8 oz BMI 30.9 BP 128/64 Blood Pressure Location Lt brachial Position Sitting Pulse 64 Pulse Source Pulse Oximeter Pulse Oximetry (%) 97 Oxygen Delivery Method Room Air Intake Visit Reasons: INP-TAL Accompanied by: Spouse Allergies diclofenac [DICLOFENAC] Allergy (Unknown, Verified 06/07/24 08:32) SHORTNESS OF BREATH HPI Comments Details: 33 year old male, referred to us by PCP Dr. Siegel for sleep evaluation. His interprets for him, She says he stops breathing at night, gasps for air, she has to wake him up to take a breath and he snores very loudly. Bedtime is usually 11:30PM and he wakes up around 6am, feeling tired everyday, falls asleep on the couch, he does take 10mg of melatonin at night to help him fall asleep. He wakes up with a headache, then feels dizzy, and off balance, he has vertigo as if the room is spinning when stands up in the morning. He gets very anxious however denies depression, he is on 10mg of Escitalopram. He doesn't wear glasses, denies double vision or changes will f/u for eye exam. Diet is good, goes to the gym, drinks plenty of water. 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 He does not smoke drinks alcohol occasionally on holidays. He has a family history of hypertension, diabetes and cancer. [facility] Medical History Obesity (BMI 30-39.9) Vitamin D deficiency Depression GERD without esophagitis Impaired fasting glucose Elevated LFTs Pure hypercholesterolemia Exertional dyspnea Allergic rhinitis Environmental allergies Surgical History Perineal abscess Family History Mother History of thyroid cancer History of hypertension History of diabetes mellitus Social History Housing: House Alcohol intake: current Alcohol intake frequency: holidays/special occasions only Alcohol type: beer and wine Patient Tobacco Use Status: Former Tobacco user e-Cigarette/Vaping Use: Never Used Second Hand Smoke Exposure: Yes service: No Current occupational status: employed 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: No Hearing needs: No Vision needs: No Review of Systems Const All systems reviewed & are unremarkable except as noted in HPI and below ENT Reports Normal hearing present Neuro Reports Normal hearing present Physical Exam Vital Signs: Last Vital Signs Pulse 64 06/07/24 08:30 BP 128/64 06/07/24 08:30 Pulse Ox 97 06/07/24 08:30 Oxygen Delivery Method Room Air 06/07/24 08:30 BMI result Body Mass Index 30.9 Const General: cooperative, comfortable and no acute distress Nutritional Appearance: average body habitus Orientation/consciousness: patient oriented x3 HEENT Teeth and gingiva: other (Mallampti score of 4) Eyes Pupils: Equal, round and reactive pupils present Neck Neck: Yes full ROM and Yes supple Resp Effort & Inspection: normal respiratory effort and able to speak in complete sentences Neuro General: patient oriented x3 and moves all extremities Cranial nerves: Yes CN's II-XII intact bilaterally, Yes Facial sensation intact/muscles of mastication intact, Yes Equal, round and reactive pupils present, Yes Normal accommodation reflex present, Yes Bilaterally intact EOM present, Yes Nystagmus not present, Yes Normal facial strength present, Yes Midline tongue present, Yes Normal hearing present, Yes Ability to bilaterally rotate head present and Yes Ability to bilaterally elevate shoulders present Gait exam (Neuro): Normal gait present Motor exam (neuro): 5/5 motor strength present throughout and Normal motor muscle tone present throughout Deep tendon reflexes (DTR's): Right triceps reflex intensity grade: 2+, Left triceps reflex intensity grade: 2+, Rt Biceps (C5, C6): 2+, Left biceps reflex intensity grade: 2+, Right brachioradialis reflex intensity grade: 2+, Left brachioradialis reflex intensity grade: 2+, Right patellar reflex intensity grade: 2+ and Left patellar reflex intensity grade: 2+ Psych Appearance: grossly normal Mental Status: mental status grossly normal Speech and movement: Normal speech and movement present Affect: normal affect Attitude: cooperative Thought process: Normal thought process present Insight: Good insight present (Psych) Judgement: Good judgement present (Psych) Results Reviewed Results Reviewed: Labs Reviewed: CBC/CMP/TSH/A1c is normal Vitamin D is low at 21L Fasting Blood sugars are high, however A1c is 5.5 Assessment & Plan Assessment & Plan (1) Fatigue due to sleep pattern disturbance: Code(s): R53.83 - Other fatigue; G47.9 - Sleep disorder, unspecified Category: Medical (2) Insomnia: Code(s): G47.00 - Insomnia, unspecified Category: Medical Qualifiers: Insomnia type: unspecified Qualified Code(s): G47.00 - Insomnia, unspecified Plan Insomnia/ Fatigue: -HST will evaluate for sleep disorders -Labs to r/o other comorbidities- B12/Folate/ Iron/ CBC/CMP/ TSH / VitD -Continue with melatonin daily to help fall asleep. Vertigo: -Will consider ENT f/u for Vertigo if sleep disorder is not cause. Headaches: -Morning headaches, continue OTC Tylenol PRN and will re-evaluate after sleep study. Follow up in 3 months after sleep study. Orders: Orders Vitamin B12 and Folate Today G47.9 - Sleep disorder, unspecified, R53.83 - Other fatigue IRON PROFILE Today G47.9 - Sleep disorder, unspecified, R53.83 - Other fatigue Methylmalonic Acid Today G47.9 - Sleep disorder, unspecified, R53.83 - Other fatigue RT home sleep study Today G47.00 - Insomnia, unspecified, G47.9 - Sleep disorder, unspecified, R53.83 - Other fatigue Coding Level of Care Code New Pt Level 3 (40054) Diagnoses Fatigue due to sleep pattern disturbance R53.83; G47.9 Insomnia, unspecified type G47.00 Insomnia type: unspecified Time Spent (min) 30 Sleep Questionnaire Difficulty falling asleep: Yes Difficulty staying asleep?: Yes Number of arousals: 1-2 x bathroom Snoring: Yes Witnessed apneas: Yes Gasping arousals: Yes Nocturia: Yes GERD: Yes Vivid dreams: No Acting out dreams: No Abnormal behavior in sleep: No Abnormal movements in sleep: No Morning headaches: Yes (daily, after waking with dizziness.) Excessive daytime sleepiness: Yes Daytime naps: No Restless legs: No Hallucinations: No Sleep paralysis: No Drop attacks: No Sleep Study: No CPAP: No
== END 2024-06-07 09:03 | disposition home or self-care (01) ==
PROVIDERS: PCP Internal Medicine; Visit Provider Physician Assistant Medical
DX: R53.83 Other fatigue (principal); G47.9 Sleep disorder, unspecified; G47.00 Insomnia, unspecified
CPT/HCPCS: 99203

== ENCOUNTER 2024-07-03 09:34 | Outpatient (REF) | payer BC, SELFPAY ==
--- OUTSIDE RECORDS SUMMARY | 2024-07-03 09:38 | XMS_ITS | Encounter Summary ---
Author Organization [employer] Address [address] [facility] [address] [place] [address] Care Team Providers Care Percussion Instrument Repairer Name Role Phone Kandi Navarrete MD Primary Care Provider Encounter Details Date Type Department Care Team (Late st Contact Info) Description 09/25/2022 Orders Only [facility] MED & PEDS [address] [place] [address] Brigitte Moore LPN Social History Tobacco Use Types Packs/Day Years Used Date Smoking Tobacco: Never Assessed Sex and Gender Information Value Date Recorded Sex Assigned at Male 04/08/2022 10:26 AM EDT Legal Sex Male 10:26 AM EDT Gender Identity Male 04/08/2022 10:26 AM EDT Sexual Orientation Straight 04/08/2022 10 :26 AM EDT documented as of this encounter Plan of Treatment Not on file documented as of this encounter Visit Diagnoses Not on filedocumented in this encounter Care Teams Percussion Instrument Repairer Relationship Specialty Start Date End Date Kandi Navarrete MD [address] [place] [id number] PCP - General Family Medicine 11/11/13 06/19/23 documented as of this encounter
--- OUTSIDE RECORDS SUMMARY | 2024-07-03 09:38 | XMS_ITS | Clinical Summary ---
Author Organization [employer] Address [address] [facility] [address]t [place] [address] Care Team Providers Care Moccasin Sewer Name Role Phone Unavailable Primary Care Provider Unavailabl e Medications valACYclovir (Valtrex) 500 MG tabletIndicatio ns:Herpes simplex TAKE 1 TABLET BY MOUTH TWICE DAILY FOR 3 DAYS 6 tablet 2 07/11/2022 Active omeprazole (PriLOSEC) [address] capsule TAKE 1 CAPSULE BY MOUTH EVERY DAY BEFORE A MEAL 30 capsule 1 09/25/2022 Active ibuprofen 600 MG tablet take 1 tablet by oral route every 6 hours as needed for pain and/or fever. 30 tablet 09/25/2022 Active Social History Tobacco Use Types Packs/Day Years Used Date Smoking Tobacco: Never Assessed Sex and Gender Information Value Date Recorded Sex Assigned at Male 04/08/2022 10:26 AM EDT Legal Sex Male 10:26 AM EDT Gender Identity Male 04/08/2022 10:26 AM EDT Sexual Orientation Straight 04/08/2022 10 :26 AM EDT Last Filed Vital Signs Vital Sign Reading Time Taken Comments Blood Pressure 125/80 08/18/2020 12:03 AM EST Pulse 71 08/18/2020 12:03 AM EST Temperature - - Respiratory Rate - - Oxygen Saturation - - Inhaled Oxygen Concentration - - Weight 98.3 kg (216 lb 12.8 oz) 021 12:03 AM EST Height 187.5 cm (6' 1.82 ) 08/18/2020 1 2:03 AM EST Body Mass Index 27.97 08/18/2020 12:03 AM EST Plan of Treatment Health Maintenance Due Date Last Done Comments Depression Screening 1988 Alcohol/Substance Use Screening 2000 Tobacco Screening 2000 Family Planning (PISQ) 09/14/2003 Hepatitis B Vaccines (3 of 3 - 19+ 3-dose series) 06/07/2019 04/12/2019, 10/31/2017 COVID-19 Vaccine ( - 2023- season) 2024 Influenza Vaccine (#1) 2024 0, 04/12/2019, 03/18/2018, Additional history exists DTaP/Tdap/Td Vaccines (2 - Td or Tdap) 04/19/2024 04/19/2014 Lipid Panel 05/13/2025 05/13/2020 Zoster Vaccines (1 of 2) 2038 RSV Patients and Patients Aged 60 years or older (1 - 1-dose 75+ series) 09/14/2063 HIB Vaccines Aged Out No longer eligi ble based on patient's age to complete this topic HPV Vaccines Aged Out No longer eligi ble based on patient's age to complete this topic Hepatitis A Vaccines Aged Out No long er eligible based on patient's age to complete this topic IPV Vaccines Aged Out No longer eligi ble based on patient's age to complete this topic Meningococcal Vaccine Aged Out No maricruz chloé eligible based on patient's age to complete this topic Pneumococcal Vaccine: Pediatrics (0 to 5 Years) and At-Risk Patients (6 to 64 Years) Aged Out No longer eligible based on patient's age to complete this topic RSV under 20 months Aged Out No longe r eligible based on patient's age to complete this topic Rotavirus Vaccines Aged Out No longer eligible based on patient's age to complete this topic Procedures Procedure Name Priority Date/Time Associated Diagnosis Comments KALIN HISTORICAL LIPID PANEL Routine 05/13/2020 8:50 AM EST from Last 3 Months or Most Recently Relevant to Health Maintenance Results * (ABNORMAL) LIPID PANEL (05/13/2020 8:50 AM EST) Cholesterol 247 mg/dL [facility] Comment: Desirable Cholesterol: ?less than 200 mg/dL Borderline High Cholesterol: ??200-239 mg/dL High Cholesterol: ? greater than 239 mg/dL HDL Cholesterol 35 mg/dL [facility] Comment: Desirable HDL: ??greater than 40 mg/dL ?? Note: This HDL assay may give artificially ? low results in patients with liver disease. LDL Cholesterol Calculated 186 mg/dl [facility] Comment: Desirable LDL: ? less than 100 mg/dL Near Optimal/Above Optimal LDL: ??110-129 mg/dL Borderline High LDL: ? 130-159 mg/dL High LDL: ?160-189 mg/dL Very High LDL: ? greater than or equal to ?190 mg/dL Triglycerides 130 mg/dL [facility] Comment: Desirable Triglyceride: ? less than 150 mg/dL Borderline High Triglyceride ??150-199 mg/dL High Triglyceride: ?200-499 mg/dL Very High Triglyceride: ? greater than or equal to ? 5OO mg/dL TSH reflex Free T4 3.28 0.32 - 4.0 mIU/mL [facility] Comment:TSH 3rd Generation ( [facility]) Alanine Aminotransferase 83(H) 0 - 40 U/L [facility] Albumin Level 4.8 3.5 - 5.0 g/dL [facility] Alkaline Phosphatase 74 39 - 117 U/L [facility] Anion Gap 13 12 - 20 [facility] Aspartate Amino Transferase 27 5 - 37 U/L [facility] Bilirubin Total 0.9 0.0 - 1.0 mg/dL [facility] Blood Urea Nitrogen 17(H) 9 - 16 mg/dL [facility] Calcium 9.6 8.4 - 10.2 mg/dL [facility] Carbon Dioxide 28 22 - 29 mmol/L [facility] Chloride 102 96 - 108 mmol/L [facility] Creatinine, Serum 1.10 0.5 - 1.4 mg/dL [facility] Estimated Glomerular Filt Rate >60 [facility] Comment: NOTE: ??For -Syrian individuals, multiply the result ?by . ?? Chronic Kidney Disease: ??Estimated GFR < 60 mL/min/1.73m2 Severe Kidney Disease: ??Estimated GFR < 15 mL/min/1.73m2 Glucose Fasting 106(H) 60 - 99 mg/dL [facility] Comment: A fasting glucose from 100-125 mg/dl is considered impaired (pre-diabetes). Potassium 4.5 3.3 - 5.1 mmol/l [facility] Sodium 138 135 - 145 mmol/L [facility] Total Protein 8.4(H) 6.5 - 8.0 g/dL [facility] 05/13/2020 8:50 AM EST Kandi Navarrete MD HISTORICAL/NON ORDERABLE LABS Fi nal Result [facility] [address] from Last 3 Months or Most Recently Relevant to Health Maintenance
[2024-07-03 10:52] LABS: Appearance Urine Clear; Color Urine Yellow; Glucose Urine UA Negative (Negative); Leukocyte Esterase Urine Negative (Negative); Nitrite Urine Negative (Negative); PH 5.5 (5.0-9.0); Specific Gravity - Urine 1.025 (1.005-1.025); Urine Blood Negative (Negative); Urine Ketones Negative (Negative); Urine Protein Negative (Neg-Trace)
[2024-07-03 11:45] LABS: Alanine Aminotransferase 72 U/L (0-40); Albumin Level 4.7 g/dL (3.5-5.0); Alkaline Phosphatase 79 U/L (39-117); Anion Gap 8 (12-20); Aspartate Amino Transferase 34 U/L (5-37); Bilirubin Total 0.6 mg/dL (0.0-1.0); Blood Urea Nitrogen 18 mg/dL (9-16); Carbon Dioxide 29 mmol/L (22-29); Chloride 106 mmol/L (96-108); Cholesterol 220 mg/dL (<200); Estimated Glomerular Filt Rate > 60; Glucose Fasting 91 mg/dL (60-99); HDL Cholesterol 29 mg/dL (>40); Iron 139 mcg/dL (45-160); LDL Cholesterol Calculated 167 mg/dL (<100); Percent Iron Saturation 49 % (15-50); Potassium 4.1 mmol/L (3.3-5.1); Sodium 139 mmol/L (135-145); Total Iron Binding Capacity 281 mcg/dL (228-428); Total Protein 8.3 g/dL (6.5-8.0); Triglycerides 121 mg/dL (<150); Unsaturated Iron Binding 142 ug/dL
[2024-07-03 12:22] LABS: Folate 11.3 ng/mL (> or = 4.0); Vitamin B12 415 pg/mL (200-900)
[2024-07-08 04:59] LABS: Methylmalonic Acid 77 nmol/L (55-335)
== END 2024-07-03 09:35 | disposition home or self-care (01) ==
LOC: HO.LAB 09:34
PROVIDERS: PCP Internal Medicine; Visit Provider Physician Assistant Medical
DX: R30.0 Dysuria (principal); E78.00 Pure hypercholesterolemia, unspecified; R53.83 Other fatigue; G47.9 Sleep disorder, unspecified
CPT/HCPCS: 36415; 80053; 80061; 81003; 82607; 82746; 83540; 83921

== ENCOUNTER → 2024-07-15 15:32 | Outpatient (REF) | payer BC, SELFPAY ==
--- OUTSIDE RECORDS SUMMARY | 2024-07-15 15:37 | XMS_ITS | Encounter Summary ---
Author Organization [employer] Address [address] [facility] [address] [place] [address] Care Team Providers Care Electrical Controls Engineer Name Role Phone Kandi Navarrete MD Primary Care Provider [phone] Encounter Details Date Type Department Care Team (Late st Contact Info) Description 07/11/2022 Orders Only [facility] CH[facility] MED & PEDS [address] [place] [address] Brigitte Moore LPN Social History Tobacco Use [...] on filedocumented in this encounter Care Teams Electrical Controls Engineer Relationship Specialty Start Date End Date Kandi Navarrete MD [address] [place] [id number] PCP - General Family Medicine 11/11/13 06/19/23 documented as of this encounter
--- OUTSIDE RECORDS SUMMARY | 2024-07-15 15:37 | XMS_ITS | Encounter Summary ---
Author Organization [employer] Address [address] [facility] [address] [place] [address] Care Team Providers Care Devulcanizer Charger Name Role Phone Kandi Navarrete MD Primary Care Provider [phone] Encounter Details Date Type Department Care Team (Late st Contact Info) Description 09/25/[address] [facility] CH[facility] MED & PEDS [address] [place] [address] Brigitte Moore LPN Social History Tobacco Use [...] on filedocumented in this encounter Care Teams Devulcanizer Charger Relationship Specialty Start Date End Date Kandi Navarrete MD [address] [place] [id number] PCP - General Family Medicine 11/11/13 06/19/23 documented as of this encounter
--- OUTSIDE RECORDS SUMMARY | 2024-07-15 15:37 | XMS_ITS | Clinical Summary ---
Author Organization [employer] Address [address] [facility] [address] [place] [address] Care Team Providers Care Biology Faculty Member Name Role Phone Unavailable Primary Care Provider [...] 5 Years) and At-Risk Patients (6 to 49) Years) Aged Out No longer eligible based [...] liver disease. LDL Cholesterol Calculated 186 mg/dl [facility] Comment: Desirable LDL: ? less than 100 mg/dL Near Optimal/Above Optimal LDL: ??110-129 mg/dL Borderline High LDL: ? 130-159 mg/dL High LDL: ?160-189 mg/dL Very High LDL: ? greater than or equal to ?190 mg/dL Triglycerides 130 mg/dL [facility] Comment: Desirable Triglyceride: ? less than 150 mg/dL Borderline High Triglyceride ??150-199 mg/dL High Triglyceride: ?200-499 mg/dL Very High Triglyceride: ? greater than or equal to ? 5OO mg/dL TSH reflex Free T4 3.28 0.32 - 4.0 mIU/mL [facility] Comment:TSH 3rd Generation ( [facility]) Alanine Aminotransferase 83(H) 0 - 40 U/L [facility] Albumin Level 4.8 3.5 - 5.0 g/dL [facility] Alkaline Phosphatase 74 39 - 117 U/L [facility] Anion Gap 13 12 - 20 [facility] Aspartate Amino Transferase 27 5 - 37 U/L [facility] Bilirubin Total 0.9 0.0 - 1.0 mg/dL [facility] Blood Urea Nitrogen 17(H) 9 - 16 mg/dL [facility] Calcium 9.6 8.4 - 10.2 mg/dL [facility] Carbon Dioxide 28 22 - 29 mmol/L [facility] Chloride 102 96 - 108 mmol/L [facility] Creatinine, Serum 1.10 0.5 - 1.4 mg/dL [facility] Estimated Glomerular Filt Rate >60 [facility] Comment: NOTE: ??For -Georgian individuals, multiply the result ?by . ?? [...] [facility] 05/13/2020 8:50 AM EST us Kandi Navarrete MD HISTORICAL/NON ORDERABLE LABS Fi nal Result [facility] [address] from Last 3 Months or Most Recently Relevant to Health Maintenance
== END ==
LOC: HO.SL 15:32
PROVIDERS: PCP Internal Medicine; Visit Provider Physician Assistant Medical
DX: G47.33 Obstructive sleep apnea (adult) (pediatric) (principal); G47.00 Insomnia, unspecified; R53.83 Other fatigue
CPT/HCPCS: 95806

== ENCOUNTER → 2024-07-15 15:47 | Outpatient (BNV) | payer BC, SELFPAY | PROVIDERS: PCP Internal Medicine; Visit Provider Psychiatry & Neurology Neurology | DX: G47.33 Obstructive sleep apnea (adult) (pediatric) (principal) | CPT/HCPCS: 95806 ==

== ENCOUNTER → 2024-08-17 19:30 | Outpatient (REF) | payer BC, SELFPAY | LOC: HO.SL 19:30 | PROVIDERS: PCP Internal Medicine; Visit Provider Physician Assistant Medical | DX: Z13.89 Encounter for screening for other disorder (principal) ==

== ENCOUNTER 2024-09-06 14:51 | Outpatient (AMB) | payer BC, SELFPAY ==
[2024-09-06 15:01] VITALS: BP 122/80; PULSE 80; O2SAT 98; BMI 31.5
--- NOTE | 2024-09-06 15:01 | MHC.OFFVIS ---
Vital Signs 09/06/24 15:01 Height 6 ft 1 in Weight 239 lb BMI 31.5 BP 122/80 Pulse 80 Pulse Source Pulse Oximeter Pulse Oximetry (%) 98 Oxygen Delivery Method Room Air Intake Visit Reasons: 3 mo follow up Intake Note: Patient presents for 3 month follow up TAL. Sleep study in chart done on 07/15/24. Senior Information Systems Architect Required: Yes Senior Information Systems Architect Services: Senior Information Systems Architect Present Senior Information Systems Architect Name: Many Accompanied by: Self / Same As Patient Allergies diclofenac [DICLOFENAC] Allergy (Unknown, Verified 09/06/24 15:04) SHORTNESS OF BREATH HPI Comments Details: 33 year old male, referred to us by PCP Dr. Siegel for sleep evaluation. Angolan speaking Senior Information Systems Architect on IPAD HST was completed 07/15/2024 and AHI was 42.5 O2 was Cy to 76% Sleep Titration study completed on 08/17/2024, his pressures were adjusted to 9cmH20, breathing and oxygen stabilized. He has been using the machine for about 10 days now, he likes his mask and is getting used to sleeping with it on. He has not stopped breathing at night and is not gasping for air, he is still snoring when he doesn't use the mask. He goes to bed usually at 11:30pm and wakes up around 6am, he feels tired everyday and falls asleep on the couch. He does take 10mg of melatonin at night to help him fall asleep, when he is unable to sleep. He wakes up with a headache in the morning, then feels dizzy, off balance, has vertigo as if the room is spinning when he stands up in the morning. He does have allergies to pollen and dust. He gets very anxious however denies depression, he is on 10mg of Escitalopram. He doesn't wear glasses, denies double vision, blurry vision, and needs to f/u for an eye exam. His diet is good, goes to the gym, drinks plenty of water daily. 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 He does not smoke, but drinks alcohol occasionally on holidays. He has a family history of hypertension, diabetes and cancer. [facility] Medical History Obesity (BMI 30-39.9) Vitamin D deficiency Depression GERD without esophagitis Impaired fasting glucose Elevated LFTs Pure hypercholesterolemia Exertional dyspnea Allergic rhinitis Environmental allergies Surgical History Perineal abscess Family History Mother History of thyroid cancer History of hypertension History of diabetes mellitus Social History Housing: House Alcohol intake: current Alcohol intake frequency: holidays/special occasions only Alcohol type: beer and wine Patient Tobacco Use Status: Former Tobacco user e-Cigarette/Vaping Use: Never Used Second Hand Smoke Exposure: Yes service: No Current occupational status: employed 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: No Hearing needs: No Vision needs: No Review of Systems Const All systems reviewed & are unremarkable except as noted in HPI and below ENT Reports Normal hearing present Neuro Reports Normal hearing present Physical Exam Vital Signs: Last Vital Signs Pulse 80 09/06/24 15:01 BP 122/80 09/06/24 15:01 Pulse Ox 98 09/06/24 15:01 Oxygen Delivery Method Room Air 09/06/24 15:01 BMI result Body Mass Index 31.5 Const General: cooperative, comfortable and no acute distress Nutritional Appearance: average body habitus Orientation/consciousness: patient oriented x3 HEENT Teeth and gingiva: other (Mallampti score of 4) Eyes Pupils: Equal, round and reactive pupils present Neck Neck: Yes full ROM and Yes supple Resp Effort & Inspection: normal respiratory effort and able to speak in complete sentences Neuro General: patient oriented x3 and moves all extremities Cranial nerves: Yes CN's II-XII intact bilaterally, Yes Facial sensation intact/muscles of mastication intact, Yes Equal, round and reactive pupils present, Yes Normal accommodation reflex present, Yes Bilaterally intact EOM present, Yes Nystagmus not present, Yes Normal facial strength present, Yes Midline tongue present, Yes Normal hearing present, Yes Ability to bilaterally rotate head present and Yes Ability to bilaterally elevate shoulders present Gait exam (Neuro): Normal gait present Motor exam (neuro): 5/5 motor strength present throughout and Normal motor muscle tone present throughout Deep tendon reflexes (DTR's): Right triceps reflex intensity grade: 2+, Left triceps reflex intensity grade: 2+, Rt Biceps (C5, C6): 2+, Left biceps reflex intensity grade: 2+, Right brachioradialis reflex intensity grade: 2+, Left brachioradialis reflex intensity grade: 2+, Right patellar reflex intensity grade: 2+ and Left patellar reflex intensity grade: 2+ Psych Appearance: grossly normal Mental Status: mental status grossly normal Speech and movement: Normal speech and movement present Affect: normal affect Attitude: cooperative Thought process: Normal thought process present Insight: Good insight present (Psych) Judgement: Good judgement present (Psych) Results Reviewed Results Reviewed: HST 07/15/2024 AHI is 42.5 and oxygen Cy to 76% CPAP Titration study completed on 08/17/2024, he was started on 9cmH20 [id number] Mask. Assessment & Plan Assessment & Plan (1) Fatigue due to sleep pattern disturbance: Code(s): R53.83 - Other fatigue; G47.9 - Sleep disorder, unspecified Category: Medical (2) Insomnia: Code(s): G47.00 - Insomnia, unspecified Category: Medical Qualifiers: Insomnia type: unspecified Qualified Code(s): G47.00 - Insomnia, unspecified (3) Loud snoring: Code(s): R06.83 - Snoring Category: Medical (4) Witnessed apneic spells: Code(s): R06.81 - Apnea, not elsewhere classified Category: Medical (5) Anxiety: Code(s): F41.9 - Anxiety disorder, unspecified Category: Medical Plan Insomnia/ Fatigue: Compliance of CPAP is emphasized for 6-8 hours a night, pressures titrated to 9cm H20 on 08/17/2024. Labs reviewed with patient today D is low, Cholesterol is high, HDL is low, LDL is high, AST/ ALT high. Patinet edcuation is provided. TSH / B12/Homocysteine, MMA, Folate normal. Anxiety : continue taking Escitalopram Difficulty falling asleep: Continue with melatonin 10mg at bedtime. Vertigo: Patient has not been on CPAP for more than 10 days, will f/u at next visit. Headaches:Morning headaches, continue OTC Tylenol PRN and will re-evaluate after 3 months of cpap compliance. Follow up in 3 months. Patient Instructions: Sleep Hygiene provided: set a scheduled bedtime and wake time to help regulate the circadian rhythm and balance the release of pituitary hormones. Sleep in a dark room, temperatures below 68 degrees, and no devices n bed. Limit caffeinated products 6 hours prior to bed, and limit fluids 2-4 hours prior to bed. Gentle night yoga, diffusing essential oils, and playing soft music can be relaxing. Labs are normal Continue using CPAP for 3 months of compliance and will f/u for improvement headache and vertigo symptoms. Continue washing the mask, changing filters as needed and filling machine with distilled water as needed. Coding Level of Care Code Est Pt Level 4 (36801) Diagnoses Fatigue due to sleep pattern disturbance R53.83; G47.9 Insomnia, unspecified type G47.00 Insomnia type: unspecified Loud snoring R06.83 Witnessed apneic spells R06.81 Anxiety F41.9 Time Spent (min) 30 Comment Improving
--- OUTSIDE RECORDS SUMMARY | 2024-09-06 16:48 | XMS_ITS | Encounter Summary ---
Author Organization [employer] Address [address] [facility] [address] [place] [address] Care Team Providers Care Stripping And Booking Machine Operator Name Role Phone Kandi Navarrete MD Primary Care Provider [phone] Encounter Details Date Type Department Care Team (Late st Contact Info) Description 09/25/2022 Orders Only [facility] MED & PEDS [address] [place] [address] Brigitte Moore LPN Social History Tobacco Use [...] on filedocumented in this encounter Care Teams Stripping And Booking Machine Operator Relationship Specialty Start Date End Date Kandi Navarrete MD [address] [place] [id number] PCP - General Family Medicine 11/11/13 06/19/23 documented as of this encounter
--- OUTSIDE RECORDS SUMMARY | 2024-09-06 16:48 | XMS_ITS | Clinical Summary ---
Author Organization [employer] Address [address] [facility] [address] [place] [address] Care Team Providers Care Sand Mill Grinder Name Role Phone Unavailable Primary Care Provider [...] liver disease. LDL Cholesterol Calculated 186 mg/dl [facility] Comment: Desirable LDL: ? less [...] Free T4 3.28 0.32 - 4.0 mIU/mL [facility] Comment:TSH 3rd Generation ( [facility]) Alanine Aminotransferase 83(H) 0 - 40 U/L [facility] Albumin Level 4.8 3.5 - 5.0 g/dL [facility] Alkaline Phosphatase 74 39 - 117 U/L [facility] Anion Gap 13 12 - 20 [facility] Aspartate Amino Transferase 27 5 - 37 U/L [facility] Bilirubin Total 0.9 0.0 - 1.0 mg/dL [facility] Blood Urea Nitrogen 17(H) 9 - 16 mg/dL [facility] Calcium 9.6 8.4 - 10.2 mg/dL [facility] Carbon Dioxide 28 22 - 29 mmol/L [facility] Chloride 102 96 - 108 mmol/L [facility] Creatinine, Serum 1.10 0.5 - 1.4 mg/dL [facility] Estimated Glomerular Filt Rate >60 [facility] Comment: NOTE: ??For -Portuguese individuals, multiply the result ?by . ?? [...] nal Result [facility] [address] from Last 3 Months or Most Recently Relevant to Health Maintenance
--- OUTSIDE RECORDS SUMMARY | 2024-09-06 16:48 | XMS_ITS | Encounter Summary ---
Author Organization [employer] Address [address] [facility] [address] [place] [address] Care Team Providers Care Urban Planning Teacher Name Role Phone Kandi Navarrete MD Primary Care Provider [phone] Encounter Details Date Type Department Care Team (Late st Contact Info) Description 07/11/2022 Orders Only [facility] MED & PEDS [address] [place] [address] Brigitte Moore LPN Social History Tobacco Use [...] on filedocumented in this encounter Care Teams Urban Planning Teacher Relationship Specialty Start Date End Date Kandi Navarrete MD [address] [place] [id number] PCP - General Family Medicine 11/11/13 06/19/23 documented as of this encounter
== END 2024-09-06 15:30 | disposition home or self-care (01) ==
LOC: HO.HSMS 14:53
PROVIDERS: PCP Internal Medicine; Visit Provider Physician Assistant Medical
DX: R53.83 Other fatigue (principal); G47.9 Sleep disorder, unspecified; G47.00 Insomnia, unspecified; R06.83 Snoring; R06.81 Apnea, not elsewhere classified; F41.9 Anxiety disorder, unspecified
CPT/HCPCS: 99214

== ENCOUNTER → 2024-09-06 14:51 | Outpatient (BNVA) | payer BC, SELFPAY | PROVIDERS: PCP Internal Medicine; Visit Provider Physician Assistant Medical ==

== ENCOUNTER 2024-11-24 14:13 | Outpatient (AMB) | payer BC, SELFPAY ==
[2024-11-24 14:33] VITALS: PULSE 58; O2SAT 98; BMI 31.4
--- NOTE | 2024-11-24 14:33 | A.OFFVIS_ITS ---
Vital Signs 11/24/24 14:33 Height 6 ft 1 in Weight 238 lb 2 oz BMI 31.4 Pulse 58 Pulse Source Pulse Oximeter Pulse Oximetry (%) 98 Oxygen Delivery Method Room Air Intake Visit Reasons: FU Intake Note: Patient presents follow up Sleep. Compliance in chart(50/90 days, >=4hrs- 24%, Average usage-1hr 39 min, AHI-1.5). Patient states he is having difficult sleeping with mask. 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 Siegel for sleep evaluation. Lithuanian speaking Bulk Receiver on IPAD He is here with his today who helps with history. 08/04/2024 HST c/w AHI of 42.5 O2 was Cy to 76% 08/17/2024 Sleep Titration study, his pressures were adjusted to 9cmH20, breathing and oxygen stabilized. 50/90 days and 24% >4hours 1 hour and 39 min Pressures are 9, median leaks at AHI is 1.5 ENT evaluation pending He continues to have difficulty with the mask at night and he pulls it off. He has a stuffy nose, and feels like he can not breath, he has tried to use the humidification setting on the machine and used the Vicks vapor stick rub. R>L feels more congested, and he has tried saline rinses. He is gasping for air, he is still snoring when he doesn't use the mask. He goes to bed usually at 11:00pm and wakes up around 4:30am, If he is unable to sleep, he takes 10mg of melatonin at night to help him fall asleep. He wakes up with a headache in the morning, then feels dizzy, off balance, has vertigo as if the room is spinning when he stands up in the morning. He does have allergies to pollen and dust. He gets anxious however denies depression, he is on 10mg of Escitalopram. He doesn't wear glasses, denies double vision, blurry vision, and needs to f/u for an eye exam. His diet is good, goes to the gym, drinks plenty of water daily. 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 He does not smoke, but drinks alcohol occasionally on holidays. He has a family history of hypertension, diabetes and cancer. [facility] Medical History Obesity (BMI 30-39.9) Vitamin D deficiency Depression GERD without esophagitis Impaired fasting glucose Elevated LFTs Pure hypercholesterolemia Exertional dyspnea Allergic rhinitis Environmental allergies Surgical History Perineal abscess Family History Mother History of thyroid cancer History of hypertension History of diabetes mellitus Social History Housing: House Alcohol intake: current Alcohol intake frequency: holidays/special occasions only Alcohol type: beer and wine Patient Tobacco Use Status: Former Tobacco user e-Cigarette/Vaping Use: Never Used Second Hand Smoke Exposure: Yes service: No Current occupational status: employed 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: No Hearing needs: No Vision needs: No Review of Systems ENT Reports Normal hearing present Neuro Reports Normal hearing present Physical Exam Vital Signs: Last Vital Signs Pulse 58 11/24/24 14:33 Pulse Ox 98 11/24/24 14:33 Oxygen Delivery Method Room Air 11/24/24 14:33 BMI result Body Mass Index 31.4 Const General: cooperative, comfortable and no acute distress Nutritional Appearance: average body habitus Orientation/consciousness: patient oriented x3 Eyes Pupils: Equal, round and reactive pupils present Neck Neck: Yes full ROM and Yes supple Resp Effort & Inspection: normal respiratory effort and able to speak in complete sentences Neuro General: patient oriented x3 and moves all extremities Cranial nerves: Yes CN's II-XII intact bilaterally, Yes Facial sensation intact/muscles of mastication intact, Yes Equal, round and reactive pupils present, Yes Normal accommodation reflex present, Yes Bilaterally intact EOM present, Yes Nystagmus not present, Yes Normal facial strength present, Yes Mid line tongue present, Yes Normal hearing present, Yes Ability to bilaterally rotate head present and Yes Ability to bilaterally elevate shoulders present Gait exam (Neuro): Normal gait present Motor exam (neuro): 5/5 motor strength present throughout and Normal motor muscle tone present throughout Psych Appearance: grossly normal Mental Status: mental status grossly normal Thought process: Normal thought process present Insight: Good insight present (Psych) Results Reviewed Results Reviewed: HST and Labs reviewed with patient Assessment & Plan Assessment & Plan (1) Fatigue due to sleep pattern disturbance: Code(s): R53.83 - Other fatigue; G47.9 - Sleep disorder, unspecified Category: Medical (2) Loud snoring: Code(s): R06.83 - Snoring Category: Medical (3) Witnessed apneic spells: Code(s): R06.81 - Apnea, not elsewhere classified Category: Medical (4) Anxiety: Code(s): F41.9 - Anxiety disorder, unspecified Category: Medical (5) History of deviated nasal septum: Code(s): Z87.09 - Personal history of other diseases of the respiratory system Category: Medical Plan Insomnia/ Fatigue: Compliance of CPAP is emphasized for 6-8 hours a night, pressures titrated to 9cm H20 on 08/17/2024. Labs reviewed with patient today D is low, Cholesterol is high, HDL is low, LDL is high, AST/ ALT high. Patinet edcuation is provided. TSH / B12/Homocysteine, MMA, Folate normal. Anxiety continue taking Escitalopram Difficulty falling asleep: Continue with melatonin 10mg at bedtime, declines BZRA or sleep aid today. Vertigo: monitor b/p are improved today. Headaches:Morning headaches, continue OTC Tylenol PRN. ENT f/u for nasal septum deviation / congestion? polyps? Follow up in 3 months. Orders: Referrals Ear/Nose/Throat Referral Z87.09 - Personal history of other diseases of the respiratory system Patient Instructions: Sleep Hygiene provided: set a scheduled bedtime and wake time to help regulate the circadian rhythm and balance the release of pituitary hormones. Sleep in a dark room, temperatures below 68 degrees, and no devices n bed. Limit caffei nated products 6 hours prior to bed, and limit fluids 2-4 hours prior to bed. Gentle night yoga, diffusing essential oils, and playing soft music can be relaxing. Coding Level of Care Code Est Pt Level 4 (38670) Diagnoses Fatigue due to sleep pattern disturbance R53.83; G47.9 Loud snoring R06.83 Witnessed apneic spells R06.81 Anxiety F41.9 History of deviated nasal septum Z87.09 Time Spent (min) 20 Comment improving
--- OUTSIDE RECORDS SUMMARY | 2024-11-24 16:21 | XMS_ITS | Encounter Summary ---
Author Organization [employer] Address [address] [facility] [address] [place] [address] Care Team Providers Care Optical Manager Name Role Phone Kandi Navarrete MD Primary Care Provider [phone] Encounter Details Date Type Department Care Team (Late st Contact Info) Description 07/11/2022 Orders Only [facility] CH[facility] MED & PEDS [address] [place] [address] Brigitte Moore LPN Social History Tobacco Use [...] on filedocumented in this encounter Care Teams Optical Manager Relationship Specialty Start Date End Date Kandi Navarrete MD [address] [place] [phone] PCP - General Family Medicine 11/11/13 06/19/23 documented as of this encounter
== END 2024-11-24 15:17 | disposition home or self-care (01) ==
LOC: HO.HSMS 14:13
PROVIDERS: PCP Internal Medicine; Visit Provider Physician Assistant Medical
DX: R53.83 Other fatigue (principal); G47.9 Sleep disorder, unspecified; R06.83 Snoring; R06.81 Apnea, not elsewhere classified; F41.9 Anxiety disorder, unspecified; Z87.09 Personal history of other diseases of the respiratory system
CPT/HCPCS: 99214

== ENCOUNTER → 2024-11-24 14:13 | Outpatient (BNVA) | payer BC, SELFPAY | PROVIDERS: PCP Internal Medicine; Visit Provider Physician Assistant Medical ==

== ENCOUNTER 2025-01-04 16:24 | Outpatient (AMB) | payer BC, SELFPAY ==
[2025-01-04 16:28] VITALS: BP 162/90; PULSE 56; RESP 18; O2SAT 97; BMI 31.4
--- NOTE | 2025-01-04 16:28 | A.OFFPC_ITS ---
Vital Signs 01/04/25 16:28 Height 6 ft 1 in Weight 238 lb 4 oz BMI 31.4 BP 162/90 H Blood Pressure Location Lt brachial Position Sitting Respiration 18 Pulse 56 Pulse Source Pulse Oximeter Temp Source Temporal Artery Scan Pulse Oximetry (%) 97 Oxygen Delivery Method Room Air Intake Visit Reasons: f/u Christmas Tree Grader Required: Yes Christmas Tree Grader Name: Lina/[id number] Accompanied by: Allergies diclofenac (DICLOFENAC) Allergy (Unknown, Verified 01/04/25 16:40) SHORTNESS OF BREATH Medication List - Last Reconciled 01/04/25 by JESÚS Malone albuterol sulfate 90 mcg/actuation 1 inh inhalation Q6-8H PRN cholecalciferol (vitamin D3) 50 mcg PO DAILY 90 days escitalopram oxalate 10 mg PO DAILY 30 days fluticasone propionate 50 mcg/actuation 1 spray intranasal DAILY PRN 30 days ibuprofen 600 mg PO Q8H PRN loratadine 10 mg PO DAILY PRN melatonin 10 mg PO BEDTIME PRN 30 days Tobacco use date assessed: 01/04/25 Dental Screening Dental Screen Date: 01/04/25 Did you have a dental visit in the last 12 months?: No Did you have a dental problem in the last 6 months where you did not have access to dental care?: No Was dental information given to patient?: Patient has dentist HPI f/u HPI Details The patient is a 34-year-old male presenting for six-month follow up appointment. He forgot to complete the pre-order labs for this visit. Reports that he will get this done mal He is here with concerns of dizziness and right ear discomfort. The dizziness began approximately a month to a month and a half ago and occurs primarily upon waking and when moving from a lying to a standing position. The patient reports that the dizziness is mild but persistent throughout the day. The patient also reports occasional ringing in the ears and mild ear pain, pa rticularly in the right ear. An ear examination revealed a blue substance that the patient attributed as paint from work he was doing recently and after flushing ear it appears yellowish in the middle, erythematous and bulging around the outer part of the right TM. The patient has a history of allergies, which may contribute to the ear issues. He has been advised to increase fluid intake as current consumption is inadequate, potentially contributing to dehydration and dizziness. Denies chest pain, SOB, heart palpitation Denies abdominal pain or change in bowel habits Denies urinary symptoms PFSH Medical History Obesity (BMI 30-39.9) Vitamin D deficiency Depression GERD without esophagitis Impaired fasting glucose Elevated LFTs Pure hypercholesterolemia Exertional dyspnea Allergic rhinitis Environmental allergies Surgical History Perineal abscess Family History Mother History of thyroid cancer History of hypertension History of diabetes mellitus Social History Housing: House Alcohol intake: current Alcohol intake frequency: holidays/special occasions only Alcohol type: beer and wine Patient Tobacco Use Status: Former Tobacco user e-Cigarette/Vaping Use: Never Used Second Hand Smoke Exposure: Yes service: No Current occupational status: employed 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 1. Little interest or pleasure in doing things: not at all 2. Feeling down, depressed, or hopeless: not at all 3. Trouble falling or staying asleep, or sleeping too much: not at all 4. Feeling tired or having little energy: more than half the days 5. Poor appetite or overeating: not at all 6. Feeling bad about yourself - or that you are a failure or have let yourself or your family down: not at all 7. Trouble concentrating on things, such as reading the newspaper or watching television: not at all 8. Moving or speaking so slowly that other people could have noticed. Or the opposite - being so fidgety or restless that you have been moving around a lot more than usual: not at all 9. Thoughts that you would be better off or of hurting yourself in some way: not at all Total score: 2 Depression Screening Interpretation: Negative Depression Screening Done: Yes 16893 - PHQ-9 Billing: Yes Source: Developed by Drs. Peter Dial, Nan B.Jagjit La and colleagues, with an educational shahla from [employer]. Thrive Questionnaire Date Thrive assessed: 01/04/25 I am a: Patient What is your living situation today?: I have a steady place to live Within the past 12 months, did the food you bought not last and you didn't have the money to get more?: I choose not to answer this question Within the past 12 months, did you worry whether your food would run out before you got money to buy more?: I choose not to answer this question Do you have trouble paying for medicines?: I choose not to answer this question Do you have trouble getting transportation to medical appointments?: No Do you have trouble paying your heating and electricity bill?: I choose not to answer this question Do you have trouble taking care of your child, family member or friend?: I choose not to answer this question Do you have trouble with day-to-day activities such as bathing, preparing meals, shopping, managing finances, etc.?: I choose not to answer this question Are you currently unemployed and looking for a job?: No Are you interested in more education?: I choose not to answer this question Please select the resources that you would like help with: None Currently or been in a relationship where the following occur: I choose not to answer THRIVE Score: 0 AUDIT C Alcohol Use Questionnaire (AUDIT-C) 1. How often do you have a drink containing alcohol?: 2-4 times a month 2. How many drinks containing alcohol do you have on a typical day when you are drinking?: 3 or 4 3. How often do you have six or more drinks on one occasion?: Never Total Score: 3 DIPIKA-7 AMB Questionnaire DIPIKA-7 Date DIPIKA - 7 assessed: 01/04/25 Feeling nervous, anxious, or on edge: 2 = More than half the days Not being able to stop or control worryin = Not at all Worrying too much about different things: 0 = Not at all Trouble relaxin = Not at all Being so restless that it is hard to sit still: 0 = Not at all Becoming easily annoyed or irritable: 0 = Not at all Feeling afraid as if something awful might happen: 0 = Not at all Total DIPIKA-7 score (0-4 normal; 5-9 mild; 10-14 moderate; 15-21 severe): 2 Source: Developed by Drs. Peter Dial, Nan Hines, Jagjit Baldwin and colleagues, with an educational shahla from [employer]. DIPIKA-7 Assessment Billing DIPIKA-7 Assessment Tool: DIPIKA-7 Assessment 29608 Review of Systems Const Denies body aches, Denies chills, Denies fever(s), Denies headache(s) and Denies poor appetite Eyes Reports no additional complaints ENT Denies dysphagia, Reports dizziness, Reports otalgia (Right-mild), Denies headache(s), Reports nasal congestion, Denies odynophagia and Reports tinnitus (Intermittent-infrequent) Card Denies chest pain, Denies syncope, Denies edema, Denies irregular heart rhythm, Denies lightheadedness and Denies dyspnea Resp Denies cough and Denies dyspnea GI Denies abdominal pain, Denies constipation, Denies dysphagia, Denies diarrhea, Denies nausea, Denies odynophagia and Denies vomiting Reports no additional complaints Musc Reports no additional complaints and Denies abnormal gait Skin/Breast Reports system reviewed and no additional complaints, except as documented Neuro Denies Abnormal speech present, Denies abnormal gait, Reports dizziness, Denies syncope and Denies headache(s) Psych Reports no additional complaints Physical exam (Primary Care) Vital Signs: Last Vital Signs Pulse 56 01/04/25 16:28 Resp 18 01/04/25 16:28 BP 162/90 H 01/04/25 16:28 Pulse Ox 97 01/04/25 16:28 Oxygen Delivery Method Room Air 01/04/25 16:28 BMI result Body Mass Index 31.4 Tobacco/Smoking Status: Tobacco use Status Tobacco use date assessed 01/04/25 01/04/25 16:38 Patient Tobacco Use Status Former Tobacco user 01/04/25 16:38 e-Cigarette/Vaping Use Never Used 01/04/25 16:38 PHQ-9: PHQ-9 Score PHQ-9: Total score 2 01/04/25 16:38 Depression Screening Interpretation: Negative Thrive Assessment: Date of Thrive Assessment Date Thrive assessed 01/04/25 01/04/25 16:38 Currently or been in a relationship where the following occur: I choose not to answer Const General: healthy appearing, no acute distress, alert and awake Nutritional Appearance: well nourished Orientation/consciousness: oriented to person, oriented to place and oriented to time HENMT Ears: TM normal on the left and TM abnormal bulging on the right, erythematous on the right and with fluid behind the TM (Yellowish) on the right General nose exam: Abnormal mucous membranes and turbinates present erythematous bilateral Eyes Conjunctivae: conjunctivae normal Sclerae: sclerae normal Pupils: Equal, round and reactive pupils present Neck Neck: Yes no lymphadenopathy and Yes no JVD Thyroid: Thyroid normal Carotids: no bruits Resp Effort & Inspection: normal respiratory effort and not tachypneic Auscultation: no crackles, no rales, no rhonchi and no wheezes Cardio Rate: regular rate Rhythm: regular rhythm Heart sounds: no murmurs and normal S1 and S2 GI Palpation (GI): Soft to palpation, nontender, no hepatomegaly and no splenomegaly Auscultation: normal bowel sounds Skin General skin exam: no rashes or lesions noted and dry skin Neuro General: oriented to person, oriented to place and oriented to time Cranial nerves: Yes Equal, round and reactive pupils present Speech: No Abnormal speech present Gait exam (Neuro): Normal gait present Motor exam (neuro): no tremor noted Extrem Right upper extremity: full ROM Left upper extremity: full ROM Right lower extremity: full ROM; no edema Left lower extremity: full ROM; no edema Psych Mental Status: mental status grossly normal Speech and movement: Normal speech and movement present Affect: normal affect Attitude: cooperative Thought process: Normal thought process present Coding Level of Care Code Est Pt Level 4 (81127) Diagnoses Right otitis media with effusion H65.91 Laterality: right Episode of recurrent major depressive disorder, unspecified depression episode severity F33.9 Depression Type: major depressive disorder Major depression recurrence: recurrent Active/Remission status: currently active Major depression episode severity: unspecified Pure hypercholesterolemia E78.00 Impaired fasting glucose R73.01 Elevated TSH R79.89 Obesity (BMI 30-39.9) E66.9 Vitamin D deficiency E55.9 Allergic rhinitis, unspecified seasonality, unspecified trigger J30.9 Allergic rhinitis trigger: unspecified Allergic rhinitis seasonality: unspecified GERD without esophagitis K21.9 Elevated LFTs R79.89 Sleep apnea, unspecified type G47.30 Sleep apnea type: unspecified type Additional Codes PHQ-9 - 73448 - PHQ-9 Billing: Yes ([id number]) DIPIKA-7 Assessment Billing - DIPIKA-7 Assessment Tool: DIPIKA-7 Assessment 47542 ([id number]) Time Spent (min) 41 Assessment & Plan Assessment & Plan (1) Otitis media with effusion: Code(s): H65.90 - Unspecified nonsuppurative otitis media, unspecified ear Category: Medical Qualifiers: Laterality: right Qualified Code(s): H65.91 - Unspecified nonsuppurative otitis media, right ear Plan: Patient was started on Augmentin 875-125 mg b.i.d. times 10 days Contact office if symptoms worsen or persist Increase fluid hydration (2) Depression: Code(s): F32.A - Depression, unspecified Category: Medical Qualifiers: Depression Type: major depressive disorder Major depression recurrence: recurrent Active/Remission status: currently active Major depression episode severity: unspecified Qualified Code(s): F33.9 - Major depressive disorder, recurrent, unspecified Plan: Encouraged CBT Continue escitalopram 10 mg daily Denies SI/HI (3) Pure hypercholesterolemia: Code(s): E78.00 - Pure hypercholesterolemia, unspecified Category: Medical Plan: Urge the patient to complete preordered labs mal because his previous cholesterol levels, even though lower than before were still elevated at total cholesterol 220 and LDL 167 Reinforced low-cholesterol diet (4) Impaired fasting glucose: Code(s): R73.01 - Impaired fasting glucose Category: Medical Plan: Reinforced low sugar/carbohydrate diet Check labs as soon as possible (5) Elevated TSH: Code(s): R79.89 - Other specified abnormal findings of blood chemistry Category: Medical Plan: Previous TSH six-month ago was normal at 2.91 Complete preordered labs-to evaluate (6) Obesity (BMI 30-39.9): Code(s): E66.9 - Obesity, unspecified Category: Medical Plan: Encouraged to exercise for at least 30 minutes a day/5 days a week Healthy eating discussed. Encouraged to eat fruits/vegetables, protein- fish/baked chicken, and to avoid salty/fried foods, sweets, caffeine and carbohydrates. Encouraged to increase water intake 6-8 glasses a day (7) Vitamin D deficiency: Code(s): E55.9 - Vitamin D deficiency, unspecified Category: Medical Plan: Continue cholecalciferol 50 mcg daily (8) Allergic rhinitis: Code(s): J30.9 - Allergic rhinitis, unspecified Category: Medical Qualifiers: Allergic rhinitis trigger: unspecified Allergic rhinitis seasonality: unspecified Qualified Code(s): J30.9 - Allergic rhinitis, unspecified Plan: Limit exposure to allergens Air purifiers and dust filters Air conditioner in house, especially where sleeping Continue fluticasone propionate 50 mcg/actuation 1 spray intranasally daily p.r.n., loratadine 10 mg daily p.r.n. (9) GERD without esophagitis: Code(s): K21.9 - Gastro-esophageal reflux disease without esophagitis Category: Medical Plan: Do not eat meals or drink carbonated beverages within 3 hr of bedtime Decrease the amount of fried, fatty, and spicy foods to decrease gastric acid production Raise the head of the bed using 4 to 6-inch blocks, especially if nocturnal symptoms are present Lose weight if indicated; avoid tight-fitting clothing, especially around the waist Avoid foods that relax the Lower esophageal sphincter (chocolate, peppermint, high-fat foods etc.,) (10) Elevated LFTs: Code(s): R79.89 - Other specified abnormal findings of blood chemistry Category: Medical Plan: Previous ALT 72-slightly decreased from 97 Abstain from or reduced alcohol/Tylenol/high fat diet (11) Sleep apnea: Code(s): G47.30 - Sleep apnea, unspecified Category: Medical Qualifiers: Sleep apnea type: unspecified type Qualified Code(s): G47.30 - Sleep apnea, unspecified Plan: The patient was complaining of snoring and feeling tired prior. Sleep study completed and showed that the patient had a severe degree of sleep apnea. AHI was 43 and oxygen arlene was 76%. The patient was started on CPAP and he is feeling much better. Orders: Orders Comprehensive [place]. Panel Fast 6 Months E55.9 - Vitamin D deficiency, unspecified, E66.3 - Overweight, F33.9 - Major depressive disorder, recurrent, unspecified, F41.9 - Anxiety disorder, unspecified, K21.9 - Gastro-esophageal reflux disease without esophagitis, R73.01 - Impaired fasting glucose, R79.89 - Other specified abnormal findings of blood chemistry, Z00.00 - Encounter for general adult medical examination without abnormal findings, Z91.09 - Other allergy status, other than to drugs and biological substances Lipid Panel 6 Months E55.9 - Vitamin D deficiency, unspecified, E66.3 - Overweight, F33.9 - Major depressive disorder, recurrent, unspecified, F41.9 - Anxiety disorder, unspecified, K21.9 - Gastro-esophageal reflux disease without esophagitis, R73.01 - Impaired fasting glucose, R79.89 - Other specified abnormal findings of blood chemistry, Z00.00 - Encounter for general adult medical examination without abnormal findings, Z91.09 - Other allergy status, other than to drugs and biological substances UA CC w/rflx Micro + Cult 6 Months E55.9 - Vitamin D deficiency, unspecified, E66.3 - Overweight, F33.9 - Major depressive disorder, recurrent, unspecified, F41.9 - Anxiety disorder, unspecified, K21.9 - Gastro-esophageal reflux disease without esophagitis, R73.01 - Impaired fasting glucose, R79.89 - Other specified abnormal findings of blood chemistry, Z00.00 - Encounter for general adult medical examination without abnormal findings, Z91.09 - Other allergy status, other than to drugs and biological substances TSH reflex Free T4 6 Months E55.9 - Vitamin D deficiency, unspecified, E66.3 - Overweight, F33.9 - Major depressive disorder, recurrent, unspecified, F41.9 - Anxiety disorder, unspecified, K21.9 - Gastro-esophageal reflux disease without esophagitis, R73.01 - Impaired fasting glucose, R79.89 - Other specified abnormal findings of blood chemistry, Z00.00 - Encounter for general adult medical examination without abnormal findings, Z91.09 - Other allergy status, other than to drugs and biological substances Free T4 (Free Thyroxine) 6 Months R79.89 - Other specified abnormal findings of blood chemistry Complete Blood Count Auto Diff 6 Months E55.9 - Vitamin D deficiency, unspecified, E66.3 - Overweight, F33.9 - Major depressive disorder, recurrent, unspecified, F41.9 - Anxiety disorder, unspecified, K21.9 - Gastro-esophageal reflux disease without esophagitis, R73.01 - Impaired fasting glucose, R79.89 - Other specified abnormal findings of blood chemistry, Z00.00 - Encounter for general adult medical examination without abnormal findings, Z91.09 - Other allergy status, other than to drugs and biological substances Vitamin D 25-OH Total 6 Months E55.9 - Vitamin D deficiency, unspecified, E66.3 - Overweight, F33.9 - Major depressive disorder, recurrent, unspecified, F41.9 - Anxiety disorder, unspecified, K21.9 - Gastro-esophageal reflux disease without esophagitis, R73.01 - Impaired fasting glucose, R79.89 - Other specified abnormal findings of blood chemistry, Z00.00 - Encounter for general adult medical examination without abnormal findings, Z91.09 - Other allergy status, other than to drugs and biological substances Medications: New amoxicillin-pot clavulanate 875-125 mg 1 tab PO BID 20 tabs 0RF 10 days
--- OUTSIDE RECORDS SUMMARY | 2025-01-04 16:46 | XMS_ITS | Encounter Summary ---
Author Organization [employer] Address [address] [facility] [address] [place] [address] Care Team Providers Care Radar Tester Name Role Phone Kandi Navarrete MD Primary Care Provider [phone] Encounter Details Date Type Department Care Team (Late st Contact Info) Description 07/11/2022 Orders Only [facility] [address] [place] [address] Brigitte Moore LPN Social History Tobacco Use [...] on filedocumented in this encounter Care Teams Radar Tester Relationship Specialty Start Date End Date Kandi Navarrete MD [address] [place] [id number] PCP - General Family Medicine 11/11/13 06/19/23 documented as of this encounter
== END 2025-01-04 17:25 | disposition home or self-care (01) ==
LOC: HO.HMCH 16:25
PROVIDERS: PCP Internal Medicine
DX: H65.91 Unspecified nonsuppurative otitis media, right ear (principal); F33.9 Major depressive disorder, recurrent, unspecified; E66.9 Obesity, unspecified; Z68.31 Body mass index [BMI] 31.0-31.9, adult; E78.00 Pure hypercholesterolemia, unspecified; R73.01 Impaired fasting glucose; R79.89 Other specified abnormal findings of blood chemistry; E55.9 Vitamin D deficiency, unspecified; J30.9 Allergic rhinitis, unspecified; K21.9 Gastro-esophageal reflux disease without esophagitis; G47.30 Sleep apnea, unspecified

== ENCOUNTER → 2025-01-04 16:24 | Outpatient (BNVA) | payer BC, SELFPAY | PROVIDERS: PCP Internal Medicine | DX: H65.91 Unspecified nonsuppurative otitis media, right ear (principal); F33.9 Major depressive disorder, recurrent, unspecified; E78.00 Pure hypercholesterolemia, unspecified; R73.01 Impaired fasting glucose; R94.6 Abnormal results of thyroid function studies; E66.9 Obesity, unspecified; Z68.31 Body mass index [BMI] 31.0-31.9, adult; E55.9 Vitamin D deficiency, unspecified; J30.9 Allergic rhinitis, unspecified; R79.89 Other specified abnormal findings of blood chemistry; G47.30 Sleep apnea, unspecified; Z79.899 Other long term (current) drug therapy; Z13.31 Encounter for screening for depression; Z13.39 Encounter for screening examination for other mental health and behavioral disorders | CPT/HCPCS: 96127 ==

== ENCOUNTER 2025-01-08 08:18 | Outpatient (REF) | payer BC, SELFPAY ==
--- OUTSIDE RECORDS SUMMARY | 2025-01-08 08:21 | XMS_ITS | Encounter Summary ---
Author Organization [employer] Address [address] [facility] [address] [place] [address] Care Team Providers Care Freezer Unloader Name Role Phone Kandi Navarrete MD Primary Care Provider [phone] Encounter Details Date Type Department Care Team (Late st Contact Info) Description 07/11/2022 Orders Only [facility] P[facility] [address] [place] [address] Brigitte Moore LPN Social History Tobacco Use [...] on filedocumented in this encounter Care Teams Freezer Unloader Relationship Specialty Start Date End Date Kandi Navarrete MD [address] [place] [id number] PCP - General Family Medicine 11/11/13 06/19/23 documented as of this encounter
[2025-01-08 08:44] LABS: MANUAL DIFF FLAG NO
[2025-01-08 09:24] LABS: Hematocrit 44.7 % (42.0-52.0); Hemoglobin 14.7 g/dl (14.0-18.0); Imm Gran Abs Auto 0.04 X10*3/uL (0.00-0.03); Imm Gran Pct Auto 0.5 % (0.0-0.4); Lymphocytes Absolute Auto 2.8 X10*3/uL (1.2-4.9); Mean Corpuscular HGB Conc 32.9 g/dl (31.0-36.0); Mean Corpuscular Hemoglobin 27.9 pg (27.0-33.0); Mean Corpuscular Volume 85.0 fL (80.0-98.0); NRBC Abs Auto 0.000 X10*3/uL (0.0-0.012); NRBC Pct Auto 0.0 /100WBC (0.0-0.2); Platelet Count 266 X10*3/uL (160-400); Red Blood Count 5.26 X10*6/uL (4.60-5.80); White Blood Count 8.3 X10*3/uL (4.8-10.8)
[2025-01-08 10:01] LABS: Appearance Urine Clear; Glucose Urine UA Negative (Negative); PH 5.5 (5.0-9.0); Specific Gravity - Urine 1.020 (1.005-1.025)
[2025-01-08 10:25] LABS: Alanine Aminotransferase 69 U/L (0-40); Albumin Level 4.6 g/dL (3.5-5.0); Alkaline Phosphatase 75 U/L (39-117); Anion Gap 14 (12-20); Aspartate Amino Transferase 40 U/L (5-37); Blood Urea Nitrogen 17 mg/dL (9-16); Calcium 9.3 mg/dL (8.4-10.2); Carbon Dioxide 27 mmol/L (22-29); Chloride 104 mmol/L (96-108); Cholesterol 202 mg/dL (<200); Estimated Glomerular Filt Rate > 60; HDL Cholesterol 30 mg/dL (>40); Potassium 4.5 mmol/L (3.3-5.1); Sodium 140 mmol/L (135-145); Total Protein 8.0 g/dL (6.5-8.0); Triglycerides 178 mg/dL (<150)
[2025-01-08 10:31] LABS: Free T4 (Free Thyroxine) 1.00 ng/dL (0.71-1.85)
== END 2025-01-08 08:19 | disposition home or self-care (01) ==
LOC: HO.LAB 08:18
PROVIDERS: PCP Internal Medicine
DX: Z00.00 Encounter for general adult medical examination without abnormal findings (principal); F41.9 Anxiety disorder, unspecified; F33.9 Major depressive disorder, recurrent, unspecified; E66.3 Overweight; E55.9 Vitamin D deficiency, unspecified; K21.9 Gastro-esophageal reflux disease without esophagitis; R79.89 Other specified abnormal findings of blood chemistry; R73.01 Impaired fasting glucose; Z91.09 Other allergy status, other than to drugs and biological substances
CPT/HCPCS: 36415; 80053; 80061; 81003; 82306; 84439; 84443; 85025

== ENCOUNTER 2025-02-06 09:42 | Emergency (ER) | payer BC, SELFPAY ==
[2025-02-06 10:04] VITALS: BP 152/94; PULSE 69; RESP 18; TEMP 37.1; O2SAT 96; BMI 31.6
--- NOTE | 2025-02-06 10:15 | ED_ITS ---
HPI - General Adult General Chief complaint: Skin/Abscess/Foreign Body Stated complaint: ?shingles Time Seen by Provider: 02/06/25 10:15 Source: patient Mode of arrival: ambulatory Limitations: no limitations History of Present Illness ED Provider: Elke Ramsay PA-C HPI narrative: Patient is a 34 year-old assigned at male with a history of chicken pox as a child, sleep apnea, GERD, elevated LFTs, and environmental allergies presenting to the emergency department with concerns of a rash. The rash is located on on his right upper back and right scapular region. He reports the rash started this past Friday02/02/2025 and has been itchy, painful, and burning. He reports applying antibiotic ointment on the area without relief. He reports there are blisters in the area that have popped and leaked fluid. He reports feeling feverish, but did not take his temperature at home. He denies any headache, vision changes, dizziness, ear pain, chest pain, SOB, cough, nausea, vomiting or any other symptoms. Onset (ago): day(s) (5) Related Data Previous Rx's ?Medication ?Instructions ?Recorded ibuprofen 600 mg tablet 600 mg PO Q8H PRN pain #30 t abs 02/08/23 albuterol sulfate 90 mcg/actuation 1 inh inhalation Q6 -8H PRN 03/18/23 breath activated powder inhaler shortness of breath or wheezing #1 ea cholecalciferol (vitamin D3) 50 50 mcg PO DAILY 90 day s #90 caps 11/25/23 mcg (2,000 unit) capsule melatonin 10 mg capsule 10 mg PO BEDTIME PRN sleep 3 0 days 05/26/24 #30 caps escitalopram oxalate 10 mg tablet 10 mg PO DAILY 30 da ys #30 tabs 07/07/24 loratadine 10 mg tablet 10 mg PO DAILY PRN for aller gies 12/09/24 #90 tabs amoxicillin 875 mg-potassium 1 tab PO BID 10 days #20 tabs 01/04/25 clavulanate 125 mg tablet fluticasone propionate 50 1 spray intranasal DAILY PRN 01/05/25 mcg/actuation nasal allergy symptoms 30 days #16 grams spray,suspension valacyclovir 1 gram tablet 1,000 mg PO TID 7 days #21 tabs 02/06/25 Allergies Allergy/AdvReac Type Severity Reaction Status Date / Time diclofenac (DICLOFENAC) Allergy Unknown SHORTNESS Verified 02/06/25 10:05 OF BREATH Review of Systems 2 Constitutional: Constitutional: Reports as per HPI Eyes: Eyes: Reports as per HPI ENT: Reports as per HPI Cardiovascular: Cardiovascular: Reports as per HPI Respiratory: Respiratory: Reports as per HPI Gastrointestinal: Gastrointestinal: Reports as per HPI Genitourinary: Genitourinary: Reports as per HPI Musculoskeletal: Musculoskeletal: Reports as per HPI Integumentary/Breasts: Skin/Breast: Reports as per HPI Neurologic: Reports as per HPI Psychiatric: Psychiatric: Reports as per HPI Endocrine: Endocrine: Reports as per HPI Hematologic/Lymphatic: Hematologic/Lymphatic: Reports as per HPI Allergic/Immunologic: Allergic/Immunologic: Reports as per HPI PMF Past Medical History Medical History Obesity (BMI 30-39.9) Vitamin D deficiency Depression GERD without esophagitis Impaired fasting glucose Elevated LFTs Pure hypercholesterolemia Exertional dyspnea Allergic rhinitis Environmental allergies Surgical History Perineal abscess Family History Family History Mother History of thyroid cancer History of hypertension History of diabetes mellitus Social History Social History Housing: House Alcohol intake: current Alcohol intake frequency: holidays/special occasions only Alcohol type: beer and wine Patient Tobacco Use Status: Former Tobacco user e-Cigarette/Vaping Use: Never Used Second Hand Smoke Exposure: Yes Advance Directives: No Advance Directives Information Provided: No service: No Current occupational status: employed 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: No Hearing needs: No Vision needs: No Physical Exam ED Vital Signs: Vital Signs - 24 hr 02/06/25 10:04 Temperature 98.7 F Pulse Rate 69 Respiratory Rate 18 Blood Pressure 152/94 H Pulse Oximetry 96 Oxygen Delivery Method Room Air BMI result Body Mass Index 31.6 Const General: cooperative, no acute distress, alert and awake Nutritional Appearance: well nourished Orientation/consciousness: patient oriented x3 HENMT Head: Yes normal to inspection and Yes atraumatic Ears: hearing grossly normal bilaterally and external ears normal General nose exam: Normal external nose present, no nasal discharge noted and no epistaxis Face and sinus: Yes normal facial exam, No abrasion and No laceration Mouth: Normal oral and palatal mucosa present, no drooling and no muffled voice Eyes General: appearance normal, both eyes and all related structures Periorbital: periorbital findings normal Eyelids: Yes eyelids normal Conjunctivae: conjunctivae normal Pupils: Equal, round and reactive pupils present EOM: EOMs intact bilaterally Neck Neck: Yes normal visual inspection and Yes full ROM Resp Effort & Inspection: normal respiratory effort and able to speak in complete sentences Skin Other: Neuro General: patient oriented x3, moves all extremities and CN's II-XI intact bilaterally Cranial nerves: Yes Equal, round and reactive pupils present Cognition (Neuro): normal cognition Extrem General: Yes normal to inspection, Yes full ROM and Yes capillary refill normal Psych Appearance: grossly normal Mental Status: mental status grossly normal Affect: normal affect Attitude: cooperative Thought process: Normal thought process present Thought content: Normal thought content present Insight: Good insight present (Psych) Medical Decision Making Medical Decision Making MDM Narrative: Patient is a 34 year-old assigned at male with a history of chicken pox as a child, sleep apnea, GERD, elevated LFTs, and environmental allergies presenting to the emergency department with concerns of a rash. Patient's physical exam was as noted in the physical exam portion of this note and consistent with shingles. I explained my physical exam findings to the patient. I answered all questions asked by the patient. I stressed the importance of the patient taking his medication as directed (either prescribed or as the over the counter packaging recommends). I stressed the importance of the patient following up with his primary care provider. I stressed the importance of the patient returning to the emergency department immediately if his symptoms were to worsen or if he were to develop any dizziness, shortness of breath, difficulty breathing, chest pain, blurry vision, loss of vision, nausea, vomiting, abdominal pain, fever, chills, back pain, or any other complaints. Patient verbalized agreement and understanding with this treatment plan and discharge. Differential Diagnosis Differential Diagnoses: The differential diagnosis associated with the presentation includes Shingles Admission/Observation Consideration of admission/observation: Escalation of care including admission/observation considered Patient would have been admitted to the hospital had his clinical presentation warranted hospital admission. Prescription Management I considered prescription management with: Antiviral (patient prescribed an antiviral) Discharge Plan Discharge Clinical Impression: Esperanza Patient Disposition: Home, Self-Care Instructions: Esperanza (ED) Additional Instructions: Keep the affected area covered as it is contagious! ?Mantmarya cubierta la iban afectada ya que es contagiosa! IF you are prescribed home medications and/or you are taking over the counter medications at home- it is very important you continue to do so as prescribed / directed unless told otherwise. SI le recetan medicamentos y/o est? tomando medicamentos de venta napoleon, es muy importante que contin?e haci?ndolo seg?n lo recetado/indicado a menos que le indiquen lo contrario. Follow up with your primary care provider. Return to the emergency department immediately if your symptoms worsen or if you develop any dizziness, shortness of breath, difficulty breathing, chest pain, blurry vision, loss of vision, nausea, vomiting, abdominal pain, fever, chills, back pain, or any other complaints. Lauren?seguimiento?con beal m?dico de atenci?n primaria. Acuda inmediatamente al servicio de urgencias si jorge s?ntomas empeoran o si presenta falta de aliento, dificultad para respirar, dolor tor?cico, mareos, aturdimiento, dolor de espalda, dolor abdominal, fiebre, escalofr?os o cualquier otro s?ntoma. Please see the information below about our Patient Portal. If you are not yet enrolled in the [facility] Patient Portal, you will receive an enrollment email invitation following your visit to any [facility] setting. You may also self-enroll in the Patient Portal by visiting our website: [email or web address] The following information is required to access the Patient Portal: - Your [facility] Medical Record Number - Your personal home email address (must match what is in your electronic medical record, Registration staff can assist with this) - Name - Date of Capabilities of the Patient Portal: - Message some providers - View upcoming appointments - Access your health summary, medical history, and visit history - View current conditions and allergies - View procedure and lab results - View your medications, including guidelines, side effects, and precautions - Complete pre-appointment questionnaires requested by your provider - Ready summary reports of your office visits and procedures To access the Patient Portal Mobile Ash, follow these directions: - Search [employer] in the Ash Store or MeMeMe Store - Download the Ash - Search for [facility] - Enter your login/password Portal del paciente Si usted no esta inscrito en el portal de pacientes de [facility], recibira daryn invitacion de inscripcion despues de beal visita al [facility] o al [facility] via correo electronico. Tambien puede inscribirse voluntariamente en el portal de pacientes visitando nuestra pagina web: [email or web address] La siguiente informacion sera requerida para acceder al portal: - Beal kathy de historia medica de [facility] - Beal direccion de correo electronico personal - Nombre - Fecha de nacimiento Capacidades: Las siguientes capacidades estan disponibles en el portal de pacientes: - Enviar mensajes a algunos doctores - Verificar proximas citas - Acceso a beal historial de davis, registro medico e historial de visitas - Yuriy las condiciones actuales y alergias yuriy procedimientos y resultados del laboratorio - Yuriy jorge medicamentos, incluyendo las pautas - Efectos secundarios y precauciones - Completar o llenar formularios / cuestionarios de - Citas solicitadas por beal doctor - Leer los resumenes de reportes medicos de jorge visitas y procedimientos Verito acceder a la aplicacion movil: - [facility] en la Ash Store o Google Play Store - Descargue la aplicacion - [facility] - Ingrese beal nombre de usuario / Contrasena Prescriptions: New valacyclovir 1 gram tablet 1,000 mg PO TID 7 Days Qty: 21 0RF No Action escitalopram oxalate 10 mg tablet 10 mg PO DAILY 30 Days Qty: 30 5RF loratadine 10 mg tablet 10 mg PO DAILY PRN (Reason: for allergies) Qty: 90 1RF fluticasone propionate 50 mcg/actuation spray,suspension 1 spray intranasal DAILY PRN (Reason: allergy symptoms) 30 Days Qty: 16 5RF ibuprofen 600 mg tablet 600 mg PO Q8H PRN (Reason: pain) Qty: 30 0RF cholecalciferol (vitamin D3) 50 mcg (2,000 unit) capsule 50 mcg PO DAILY 90 Days Qty: 90 3RF albuterol sulfate 90 mcg/actuation aerosol powdr breath activated 1 inh inhalation Q6-8H PRN (Reason: shortness of breath or wheezing) Qty: 1 1RF melatonin 10 mg capsule 10 mg PO BEDTIME PRN (Reason: sleep) 30 Days Qty: 30 5RF amoxicillin-pot clavulanate 875-125 mg tablet 1 tab PO BID 10 Days Qty: 20 0RF Referrals: Dayton Siegel MD [Primary Care Provider, Internal Medicine] Stand Alone Forms: Work/School Release Print Language: Mohawk
--- OUTSIDE RECORDS SUMMARY | 2025-02-06 10:20 | XMS_ITS | Clinical Summary ---
Author Organization [employer] Address [address] [facility] [address] [place] [address] Care Team Providers Care Network Architect Name Role Phone Unavailable Primary Care Provider [...] Date Last Done Comments Depression Screening 1988 Disability Screening 1988 Alcohol/Substance Use Screening 2000 Tobacco Screening 2000 Family Planning (PISQ) 09/14/2003 HPV Vaccines (1 - Male 3-dose series) 09/14/2003 Hepatitis B Vaccines (3 of 3 - 19+ 3-dose series) 06/07/2019 04/12/2019, 10/31/2017 COVID-19 Vaccine (1 - season) 2024 DTaP/Tdap/Td Vaccines (2 - Td or Tdap) 04/19/2024 04/19/2014 Influenza Vaccine (#1) 2025 0, 04/12/2019, 03/18/2018, Additional history exists Lipid Panel 05/13/2025 05/13/2020 Zoster Vaccines (1 [...] patient's age to complete this topic Meningococcal B Vaccine Aged Out No l onger eligible based on patient's age to complete this topic Meningococcal Vaccine Aged Out No maricruz chloé eligible based on patient's age to complete this topic Pneumococcal Vaccine: Pediatrics (0 to 5 Years) and At-Risk Patients (6 to 49) Years Aged Out No longer eligible based on patient's age to complete this topic RSV under 20 months Aged Out No longe r eligible based on patient's age to complete this topic Rotavirus Vaccines Aged Out No longer eligible based on patient's age to complete this topic Procedures Procedure Name Priority Date/Time Associated Diagnosis Comments ZZZ HISTORICAL LIPID PANEL Routine 05/13/2020 8:50 AM EST from Last 3 Months or Most Recently Relevant to Health Maintenance Results * (ABNORMAL) LIPID PANEL (05/13/2020 8:50 AM EST) Cholesterol 247 mg/dL [facility] Comment: Desirable Cholesterol: less than 200 mg/dL Borderline High Cholesterol: 200-239 mg/dL High Cholesterol: greater than 239 mg/dL HDL Cholesterol 35 mg/dL [facility] Comment: Desirable HDL: greater than 40 mg/dL Note: This HDL assay may give artificially low results in patients with liver disease. LDL Cholesterol Calculated 186 mg/dl [facility] Comment: Desirable LDL: less than 100 mg/dL Near Optimal/Above Optimal LDL: 110-129 mg/dL Borderline High LDL: 130-159 mg/dL High LDL: 160-189 mg/dL Very High LDL: greater than or equal to 190 mg/dL Triglycerides 130 mg/dL [facility] Comment: Desirable Triglyceride: less than 150 mg/dL Borderline High Triglyceride 150-199 mg/dL High Triglyceride: 200-499 mg/dL Very High Triglyceride: greater than or equal to 5OO mg/dL TSH reflex Free T4 3.28 0.32 - 4.0 mIU/mL [facility] Comment:TSH 3rd Generation ( [facility]) Alanine Aminotransferase 83(H) 0 - 40 U/L [facility] Albumin Level 4.8 3.5 - 5.0 g/dL [facility] Alkaline Phosphatase 74 39 - 117 U/L [facility] Anion Gap 13 12 - 20 [facility] Aspartate Amino Transferase 27 5 - 37 U/L [facility] Bilirubin Total 0.9 0.0 - 1.0 mg/dL [facility] Blood Urea Nitrogen 17(H) 9 - 16 mg/dL [facility] Calcium 9.6 8.4 - 10.2 mg/dL [facility] Carbon Dioxide 28 22 - 29 mmol/L [facility] Chloride 102 96 - 108 mmol/L [facility] Creatinine, Serum 1.10 0.5 - 1.4 mg/dL [facility] Estimated Glomerular Filt Rate >60 [facility] Comment: NOTE: For -[place] individuals, multiply the result by 1.210. Chronic Kidney Disease: Estimated GFR < 60 mL/min/1.73m2 Severe Kidney Disease: Estimated GFR < 15 mL/min/1.73m2 Glucose Fasting 106(H) 60 - 99 mg/dL [facility] Comment: A fasting glucose from 100-125 mg/dl is considered impaired (pre-diabetes). Potassium 4.5 3.3 - 5.1 mmol/l [facility] Sodium 138 135 - 145 mmol/L [facility] Total Protein 8.4(H) 6.5 - 8.0 g/dL [facility] 05/13/2020 8:50 AM EST us Kandi Navarrete MD HISTORICAL/NON ORDERABLE LABS Fi nal Result [facility] Anywhere [address] from Last 3 Months or Most Recently Relevant to Health Maintenance
--- OUTSIDE RECORDS SUMMARY | 2025-02-06 10:20 | XMS_ITS | Encounter Summary ---
Author Organization [employer] Address [address] [facility] [address] [place] [address] Care Team Providers Care Vessel Slagman Name Role Phone Kandi Navarrete MD Primary Care Provider [phone] Encounter Details Date Type Department Care Team (Late st Contact Info) Description 09/25/2022 Orders Only [facility] [address] [place] [address] Brigitte Moore LPN Social History Tobacco Use [...] on filedocumented in this encounter Care Teams Vessel Slagman Relationship Specialty Start Date End Date Kandi Navarrete MD [address] [place] [id number] PCP - General Family Medicine 11/11/13 06/19/23 documented as of this encounter
--- OUTSIDE RECORDS SUMMARY | 2025-02-06 10:20 | XMS_ITS | Encounter Summary ---
Author Organization [employer] Address [address] [facility] [address] [place] [address] Care Team Providers Care Account Management Assistant Name Role Phone Kandi Navarrete MD Primary Care Provider [phone] Encounter Details Date Type Department Care Team (Late st Contact Info) Description 07/11/2022 Orders Only [facility] [address] [place] [address] Brigitte Moore LPN Social History Tobacco Use [...] on filedocumented in this encounter Care Teams Account Management Assistant Relationship Specialty Start Date End Date Kandi Navarrete MD [address] [place] [id number] PCP - General Family Medicine 11/11/13 06/19/23 documented as of this encounter
--- NOTE | 2025-02-06 11:00 | PC.NURSE ---
Airborne precautions initiated for + shingles diagnosis
[2025-02-06 11:26] VITALS: BP 152/94; PULSE 69; RESP 18; TEMP 37.1; O2SAT 96
== END 2025-02-06 11:33 | disposition home or self-care (01) ==
PROVIDERS: Emergency Provider Emergency Medicine; PCP Internal Medicine
DX: B02.9 Zoster without complications (principal); Z79.899 Other long term (current) drug therapy
CPT/HCPCS: 99282; 99283

== ENCOUNTER 2025-02-15 15:40 | Outpatient (AMB) | payer BC, SELFPAY ==
[2025-02-15 15:45] VITALS: BP 150/80; PULSE 80; RESP 18; TEMP 36.1; O2SAT 94; BMI 31.0
--- NOTE | 2025-02-15 15:45 | A.OFFPC_ITS ---
Vital Signs 02/15/25 15:45 Height 6 ft 1 in Weight 235 lb 2 oz BMI 31.0 BP 150/80 H Blood Pressure Location Lt brachial Position Sitting Respiration 18 Pulse 80 Pulse Source Pulse Oximeter Temp 96.9 F Temp Source Temporal Artery Scan Pulse Oximetry (%) 94 Oxygen Delivery Method Room Air Intake Visit Reasons: [facility] 02/06 shingles? Air Analysis Engineering Technician Required: Yes Air Analysis Engineering Technician Language: Key Operator Name: Ruben/[id number] Accompanied by: Self / Same As Patient Allergies diclofenac (DICLOFENAC) Allergy (Unknown, Verified 02/15/25 16:00) SHORTNESS OF BREATH Medication List - Last Reconciled 02/15/25 by JESÚS Malone albuterol sulfate 90 mcg/actuation 1 inh inhalation Q6-8H PRN cholecalciferol (vitamin D3) 50 mcg PO DAILY 90 days escitalopram oxalate 10 mg PO DAILY 30 days fluticasone propionate 50 mcg/actuation 1 spray intranasal DAILY PRN 30 days gabapentin 100 mg PO BID ibuprofen 600 mg PO Q8H PRN loratadine 10 mg PO DAILY PRN melatonin 10 mg PO BEDTIME PRN 30 days valacyclovir 1,000 mg PO TID 7 days Tobacco use date assessed: 02/15/25 Dental Screening Dental Screen Date: 02/15/25 Did you have a dental visit in the last 12 months?: No Did you have a dental problem in the last 6 months where you did not have access to dental care?: No Was dental information given to patient?: No HPI [facility] 02/06 shingles? HPI Details The patient is a 34-year-old male presenting [facility] ER visit follow up appointment due to herpes zoster. The patient was prescribed valacyclovir a 1000 mg t.i.d. x7 days and gabapentin 100 mg b.i.d. The patient also noted to be hypertensive BP 150/80. The patient experienced an episode of herpes zoster, which led to a hospital visit on the of last . He reports that the condition is still causing a burning sensation, although it is healing. The patient completed a course of Valtrex, an antiviral medication, and is currently using gabapentin to manage the burning sensation. The patient also has a history of high blood pressure, which appears to be familial. His blood pressure remains elevated despite lifestyle modifications, and he is advised to monitor his blood pressure at home. [facility] Medical History Obesity (BMI 30-39.9) Vitamin D deficiency Depression GERD without esophagitis Impaired fasting glucose Elevated LFTs Pure hypercholesterolemia Exertional dyspnea Allergic rhinitis Environmental allergies Surgical History Perineal abscess Family History Mother History of thyroid cancer History of hypertension History of diabetes mellitus Social History Housing: House Alcohol intake: current Alcohol intake frequency: holidays/special occasions only Alcohol type: beer and wine Patient Tobacco Use Status: Former Tobacco user e-Cigarette/Vaping Use: Never Used Second Hand Smoke Exposure: Yes service: No Current occupational status: employed 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 1. Little interest or pleasure in doing things: not at all 2. Feeling down, depressed, or hopeless: not at all 3. Trouble falling or staying asleep, or sleeping too much: not at all 4. Feeling tired or having little energy: more than half the days 5. Poor appetite or overeating: not at all 6. Feeling bad about yourself - or that you are a failure or have let yourself or your family down: not at all 7. Trouble concentrating on things, such as reading the newspaper or watching television: not at all 8. Moving or speaking so slowly that other people could have noticed. Or the opposite - being so fidgety or restless that you have been moving around a lot more than usual: not at all 9. Thoughts that you would be better off or of hurting yourself in some way: not at all Total score: 2 Depression Screening Interpretation: Negative Depression Screening Done: Yes Source: Developed by Drs. Peter Dial, Nan Hines, Jagjit Baldwin and colleagues, with an educational shahla from [employer]. Thrive Questionnaire Date Thrive assessed: 09/09/25 I am a: Patient What is your living situation today?: I have a steady place to live Within the past 12 months, did the food you bought not last and you didn't have the money to get more?: I choose not to answer this question Within the past 12 months, did you worry whether your food would run out before you got money to buy more?: I choose not to answer this question Do you have trouble paying for medicines?: I choose not to answer this question Do you have trouble getting transportation to medical appointments?: No Do you have trouble paying your heating and electricity bill?: I choose not to answer this question Do you have trouble taking care of your child, family member or friend?: I choose not to answer this question Do you have trouble with day-to-day activities such as bathing, preparing meals, shopping, managing finances, etc.?: I choose not to answer this question Are you currently unemployed and looking for a job?: No Are you interested in more education?: I choose not to answer this question Please select the resources that you would like help with: None Currently or been in a relationship where the following occur: I choose not to answer THRIVE Score: 0 AUDIT C Alcohol Use Questionnaire (AUDIT-C) 1. How often do you have a drink containing alcohol?: 2-4 times a month 2. How many drinks containing alcohol do you have on a typical day when you are drinking?: 3 or 4 3. How often do you have six or more drinks on one occasion?: Never Total Score: 3 DIPIKA-7 AMB Questionnaire DIPIKA-7 Date DIPIKA - 7 assessed: 02/15/25 Feeling nervous, anxious, or on edge: 2 = More than half the days Not being able to stop or control worryin = Not at all Worrying too much about different things: 0 = Not at all Trouble relaxin = Not at all Being so restless that it is hard to sit still: 0 = Not at all Becoming easily annoyed or irritable: 0 = Not at all Feeling afraid as if something awful might happen: 0 = Not at all Total DIPIKA-7 score (0-4 normal; 5-9 mild; 10-14 moderate; 15-21 severe): 2 Source: Developed by Drs. Peter Dial, Nan Hines, Jagjit Baldwin and colleagues, with an educational shahla from [employer]. Review of Systems Const Denies body aches, Denies chills, Denies fever(s), Denies headache(s) and Denies poor appetite Eyes Reports no additional complaints ENT Denies dysphagia, Denies dizziness, Denies headache(s) and Denies odynophagia Card Denies chest pain, Denies syncope, Denies edema, Denies irregular heart rhythm, Denies lightheadedness and Denies dyspnea Resp Denies cough and Denies dyspnea GI Denies abdominal pain, Denies constipation, Denies dysphagia, Denies diarrhea, Denies nausea, Denies odynophagia and Denies vomiting Reports no additional complaints Musc Denies no additional complaints and Denies abnormal gait Skin/Breast Reports lesions (Shingle rash to right scapula/shoulder area) Neuro Denies abnormal gait, Reports burning sensations (Right scapular/shoulder), Denies dizziness, Denies syncope, Denies headache(s) and Reports other Psych Reports no additional complaints Physical exam (Primary Care) Vital Signs: Last Vital Signs Temp 96.9 F 02/15/25 15:45 Pulse 80 02/15/25 15:45 Resp 18 02/15/25 15:45 BP 150/80 H 02/15/25 15:45 Pulse Ox 94 02/15/25 15:45 Oxygen Delivery Method Room Air 02/15/25 15:45 BMI result Body Mass Index 31.0 Tobacco/Smoking Status: Tobacco use Status Tobacco use date assessed 02/15/25 02/15/25 15:53 Patient Tobacco Use Status Former Tobacco user 02/15/25 15:53 e-Cigarette/Vaping Use Never Used 02/15/25 15:53 PHQ-9: PHQ-9 Score PHQ-9: Total score 2 02/15/25 15:53 Depression Screening Interpretation: Negative Thrive Assessment: Date of Thrive Assessment Date Thrive assessed 02/15/25 02/15/25 15:53 Currently or been in a relationship where the following occur: I choose not to answer Const General: cooperative, healthy appearing, comfortable and no acute distress Orientation/consciousness: patient oriented x3 HENMT Head: Yes normocephalic Ears: hearing grossly normal bilaterally General nose exam: Normal external nose present Eyes General: appearance normal, both eyes and all related structures Conjunctivae: conjunctivae normal Neck Neck: Yes full ROM and Yes no lymphadenopathy Resp Effort & Inspection: normal respiratory effort Auscultation: clear to auscultation bilaterally, no crackles, no rales, no rhonchi and no wheezes Cardio Rate: regular rate Rhythm: regular rhythm Skin Lesions: lesion noted (Dried up vesicles to the right scapular/shoulder area) Neuro General: patient oriented x3 Gait exam (Neuro): Normal gait present Extrem General: Yes normal to inspection, Yes full ROM and No edema Psych Affect: normal affect Attitude: cooperative Insight: Good insight present (Psych) Judgement: Good judgement present (Psych) Coding Level of Care Code Est Pt Level 3 (29213) Diagnoses Elevated blood pressure reading R03.0 Shingles B02.9 Herpes zoster complications: without complications Time Spent (min) 36 Assessment & Plan Assessment & Plan (1) Elevated blood pressure reading: Code(s): R03.0 - Elevated blood-pressure reading, without diagnosis of hypertension Category: Medical Plan: The patient was started on a low dose of lisinopril to manage his hypertension. He was instructed to monitor his blood pressure at home and return for a follow- up in four weeks with his readings. Reinforced low-salt diet (2) Shingles: Code(s): B02.9 - Zoster without complications Category: Medical Qualifiers: Herpes zoster complications: without complications Qualified Code(s): B02.9 - Zoster without complications Plan The patient was advised to continue using gabapentin for the burning sensation associated with shingles. He was informed that the condition is self-limiting and should improve over time. Continue calamine lotion. Patient already completed Valtrex a 1000 mg t.i.d. x7 days. Medications: New lisinopril 5 mg PO DAILY 30 tabs 3RF
--- OUTSIDE RECORDS SUMMARY | 2025-02-15 17:52 | XMS_ITS | Clinical Summary ---
Author Organization [employer] Address [address] [facility] 7t [place] [address] Care Team Providers Care Bottling Line Operator Name Role Phone Unavailable Primary Care Provider [...] - 19+ 3-dose series) 06/07/2019 04/12/2019, 10/31/2017 DTaP/Tdap/Td Vaccines (2 - Td or Tdap) 04/19/2024 04/19/2014 COVID-19 Vaccine (1 - season) 2025 Influenza Vaccine (#1) 2025 0, 04/12/2019, 03/18/2018, [...] [facility] Comment: Desirable LDL: less than [...] >60 [facility] Comment: NOTE: For -Algerian individuals, multiply the result by 1.210. Chronic Kidney Disease: Estimated GFR < 60 mL/min/1.73m2 Severe Kidney Disease: Estimated GFR < 15 mL/min/1.73m2 Glucose Fasting 106(H) 60 - 99 mg/dL [facility] Comment: A fasting glucose from 100-125 mg/dl is considered impaired (pre-diabetes). Potassium 4.5 3.3 - 5.1 mmol/l [facility] Sodium 138 135 - 145 mmol/L [facility] Total Protein 8.4(H) 6.5 - 8.0 g/dL [facility] 05/13/2020 8:50 AM EST us Kandi Navarrete MD HISTORICAL/NON ORDERABLE LABS Fi nal Result [facility] Anywhere [address] from Last 3 Months or Most Recently Relevant to Health Maintenance
--- OUTSIDE RECORDS SUMMARY | 2025-02-15 17:52 | XMS_ITS | Encounter Summary ---
Author Organization [employer] Address [address] [facility] 7t [place] [address] Care Team Providers Care Diesel Inspector Name Role Phone Kandi Navarrete MD Primary Care Provider [phone] Encounter Details Date Type Department Care Team (Late st Contact Info) Description 07/11/2022 Orders Only [facility] [address] [place] [address] Brigitte Moore LPN Social History Tobacco Use [...] on filedocumented in this encounter Care Teams Diesel Inspector Relationship Specialty Start Date End Date Kandi Navarrete MD [address] [place] [id number] PCP - General Family Medicine 11/11/13 06/19/23 documented as of this encounter
--- OUTSIDE RECORDS SUMMARY | 2025-02-15 17:52 | XMS_ITS | Encounter Summary ---
Author Organization [employer] Address [address] [facility] 7t [place] [address] Care Team Providers Care Chief Growth Officer Name Role Phone Kandi Navarrete MD Primary Care Provider [phone] Encounter Details Date Type Department Care Team (Late st Contact Info) Description 09/25/2022 Orders Only [facility] [address] [place] [address] Brigitte Moore LPN Social History Tobacco Use [...] on filedocumented in this encounter Care Teams Chief Growth Officer Relationship Specialty Start Date End Date Kandi Navarrete MD [address] [place] [id number] PCP - General Family Medicine 11/11/13 06/19/23 documented as of this encounter
== END 2025-02-15 16:31 | disposition home or self-care (01) ==
LOC: HO.HMCH 15:40
PROVIDERS: PCP Internal Medicine
DX: R03.0 Elevated blood-pressure reading, without diagnosis of hypertension (principal); B02.9 Zoster without complications

== ENCOUNTER 2025-02-23 15:08 | Outpatient (AMB) | payer BC, SELFPAY ==
--- NOTE | 2025-02-23 15:14 | A.OFFVIS_ITS ---
Vital Signs 02/23/25 15:17 Height 6 ft 1 in Weight 235 lb 4 oz BMI 31.0 BP 150/82 H Blood Pressure Location Lt brachial Position Sitting Pulse 64 Pulse Source Pulse Oximeter Pulse Oximetry (%) 96 Oxygen Delivery Method Room Air Intake Visit Reasons: 3 mnts f/u Intake Note: Patient presents follow up Sleep. Compliance in chart(55/90days, >=4hrs-30%, Average Usage-2hr 21min, Pressure-7cm, Med Pressure-1.9, AHI-4.7)Patient states choking through out the night Water Softener Servicer And Installer Required: Yes Water Softener Servicer And Installer Language: Physician Assistant Psychiatry Services: Water Softener Servicer And Installer Present Water Softener Servicer And Installer Name: Julio [id number] Information Interpreted: non-clinical & clinical Accompanied by: Spouse Allergies diclofenac (DICLOFENAC) Allergy (Unknown, Verified 02/23/25 15:14) SHORTNESS OF BREATH HPI Comments Details: 34 year old male presents for a f/u visit of TAL and deviated septum. Djib[place]ian speaking Water Softener Servicer And Installer on IPAD 08/04/2024 HST c/w AHI of 42.5 O2 was Cy to 76%. 08/17/2024 Sleep Titration study, his pressures were adjusted to 9cmH20, breathing and oxygen stabilized. TAL compliance Report November 2024 to Jan 2025 55/90 days and 24% >4hours and 30, avg use 2 hours and 21 min. Pressures are 7cmH20, leaks are 1.9cmH20 with AHI of 4.7. He washes his mask, rinses hoses, changes filters and fills reservoir with water. Pt had shingles in January and could not sleep with the cpap due to the break out on his neck and back. Patient states he notices a forceful airflow when falling asleep. He feels he is short of breath. We discussed adjusting his EPR, pressures by 1 cmH20 and checking in 2 weeks for comfort level when falling asleep. If this continues to occur we will address adjusting pressures again as he is not yet acclimated to his machine completely post titration. He likes his mask. He has congestion, and can not bet enough breath into the nose. He has tried to use the humidification setting on the machine and used the Vicks vapor stick rub. R>L feels more congested, and he has tried saline rinses. Headaches and snoring has improved, he does have allergies to pollen and dust. He gets anxious however denies depression, he is on 10mg of Escitalopram. He doesn't wear glasses, denies double vision, blurry vision, and needs to f/u for an eye exam. ENT evaluation pending for deviated Septum. [facility] Medical History Obesity (BMI 30-39.9) Vitamin D deficiency Depression GERD without esophagitis Impaired fasting glucose Elevated LFTs Pure hypercholesterolemia Exertional dyspnea Allergic rhinitis Environmental allergies Surgical History Perineal abscess Family History Mother History of thyroid cancer History of hypertension History of diabetes mellitus Social History Housing: House Alcohol intake: current Alcohol intake frequency: holidays/special occasions only Alcohol type: beer and wine Patient Tobacco Use Status: Former Tobacco user e-Cigarette/Vaping Use: Never Used Second Hand Smoke Exposure: Yes service: No Current occupational status: employed 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: No Hearing needs: No Vision needs: No Review of Systems ENT Reports Normal hearing present Neuro Reports Normal hearing present Physical Exam Vital Signs: Last Vital Signs Pulse 64 02/23/25 15:17 BP 150/82 H 02/23/25 15:17 Pulse Ox 96 02/23/25 15:17 Oxygen Delivery Method Room Air 02/23/25 15:17 BMI result Body Mass Index 31.0 Const General: cooperative, comfortable and no acute distress Nutritional Appearance: average body habitus Orientation/consciousness: patient oriented x3 Eyes Pupils: Equal, round and reactive pupils present Neck Neck: Yes full ROM and Yes supple Resp Effort & Inspection: normal respiratory effort and able to speak in complete sentences Neuro General: patient oriented x3 and moves all extremities Cranial nerves: Yes CN's II-XII intact bilaterally, Yes Facial sensation intact/muscles of mastication intact, Yes Equal, round and reactive pupils present, Yes Normal accommodation reflex present, Yes Bilaterally intact EOM present, Yes Nystagmus not present, Yes Normal facial strength present, Yes Midline tongue present, Yes Normal hearing present, Yes Ability to bilaterally rotate head present and Yes Ability to bilaterally elevate shoulders present Gait exam (Neuro): Normal gait present Motor exam (neuro): 5/5 motor strength present throughout and Normal motor muscle tone present throughout Psych Appearance: grossly normal Mental Status: mental status grossly normal Thought process: Normal thought process present Insight: Good insight present (Psych) Results Reviewed Results Reviewed: TAL compliance Report November 2024 to Jan 2025 55/90 days and 24% >4hours and 30, avg use 2 hours and 21 min. Pressures are 7cmH20, leaks are 1.9cmH20 with AHI of 4.7. He washes his mask, rinses hoses, changes filters and fills reservoir with water. Assessment & Plan Assessment & Plan (1) Fatigue due to sleep pattern disturbance: Code(s): R53.83 - Other fatigue; G47.9 - Sleep disorder, unspecified Category: Medical (2) Anxiety: Code(s): F41.9 - Anxiety disorder, unspecified Category: Medical (3) History of deviated nasal septum: Code(s): Z87.09 - Personal history of other diseases of the respiratory system Category: Medical (4) TAL on CPAP: Code(s): G47.33 - Obstructive sleep apnea (adult) (pediatric) Category: Medical Plan TAL Compliance of CPAP is emphasized for 6-8 hours a night, pressures titrated to 9cm H20 on 08/17/2024. if pressures are too high you may adjust the EPR pressures in the setting and will f/u on portal message re: forceful air. Labs reviewed with patient today continue vit d. Anxiety continue taking Escitalopram. Difficulty falling asleep continue with melatonin 10mg at bedtime, declines BZRA or sleep aid today. Headaches, continue OTC Tylenol PRN. ENT f/u for nasal septum deviation / congestion? polyps?, call and f/u with will submit another referral if needed. phone # provided. Follow up in 3 months. Coding Level of Care Code Est Pt Level 4 (65591) Diagnoses Fatigue due to sleep pattern disturbance R53.83; G47.9 Anxiety F41.9 History of deviated nasal septum Z87.09 TAL on CPAP G47.33
[2025-02-23 15:17] VITALS: BP 150/82; PULSE 64; O2SAT 96; BMI 31.0
--- OUTSIDE RECORDS SUMMARY | 2025-02-23 18:42 | XMS_ITS | Clinical Summary ---
Author Organization [employer] Address [address] [facility] 7t [place] [address] Care Team Providers Care Electrician Manager Name Role Phone Unavailable Primary Care Provider [...] liver disease. LDL Cholesterol Calculated 186 mg/dl [facility] Comment: Desirable LDL: less than [...] Free T4 3.28 0.32 - 4.0 mIU/mL [facility] Comment:TSH 3rd Generation ( Nieto [...] >60 [facility] Comment: NOTE: For -Yemeni individuals, multiply the result by 1.210. Chronic Kidney Disease: Estimated GFR < 60 mL/min/1.73m2 Severe Kidney Disease: Estimated GFR < 15 mL/min/1.73m2 Glucose Fasting 106(H) 60 - 99 mg/dL [facility] Comment: A fasting glucose from 100-125 mg/dl is considered impaired (pre-diabetes). Potassium 4.5 3.3 - 5.1 mmol/l [facility] Sodium 138 135 - 145 mmol/L [facility] Total Protein 8.4(H) 6.5 - 8.0 g/dL [facility] 05/13/2020 8:50 AM EST us Kandi Navarrete MD HISTORICAL/NON ORDERABLE LABS Fi nal Result [facility] Anywhere [address] from Last 3 Months or Most Recently Relevant to Health Maintenance
--- OUTSIDE RECORDS SUMMARY | 2025-02-23 18:42 | XMS_ITS | Encounter Summary ---
Author Organization [employer] Address [address] [facility] [address]t [place] [address] Care Team Providers Care Inker Machine Name Role Phone Kandi Navarrete MD Primary Care Provider [phone] Encounter Details Date Type Department Care Team (Late st Contact Info) Description 07/11/[address] [facility] [address] [place] [address] Brigitte Moore LPN Social History Tobacco Use [...] on filedocumented in this encounter Care Teams Inker Machine Relationship Specialty Start Date End Date Kandi Navarrete MD [address] [place] [phone] PCP - General Family Medicine 11/11/13 06/19/23 documented as of this encounter
--- OUTSIDE RECORDS SUMMARY | 2025-02-23 18:42 | XMS_ITS | Encounter Summary ---
Author Organization [email or web address] Address [address] [facility] [address]t [place] [address] Care Team Providers Care Medical Billing Specialist Name Role Phone Kandi Navarrete MD Primary Care Provider Encounter Details Date Type Department Care Team (Late st Contact Info) Description 09/25/2022 Orders Only [facility] [address] [place] [address] Brigitte Moore LPN Social History Tobacco Use [...] on filedocumented in this encounter Care Teams Medical Billing Specialist Relationship Specialty Start Date End Date Kandi Navarrete MD [address] [place] [phone] PCP - General Family Medicine 11/11/13 06/19/23 documented as of this encounter
== END 2025-02-23 15:59 | disposition home or self-care (01) ==
LOC: HO.HSMC 15:09
PROVIDERS: PCP Internal Medicine; Visit Provider Physician Assistant Medical
DX: R53.83 Other fatigue (principal); G47.9 Sleep disorder, unspecified; F41.9 Anxiety disorder, unspecified; Z87.09 Personal history of other diseases of the respiratory system; G47.33 Obstructive sleep apnea (adult) (pediatric)
CPT/HCPCS: 99214

== ENCOUNTER 2025-03-03 12:18 | Emergency (ER) | payer BC, SELFPAY ==
--- NOTE | ~2025-03-03 | XR_ITS ---
EXAMINATION: XR CHEST CLINICAL INFORMATION: chest pain COMPARISON: None available. TECHNIQUE: 2 views of the chest were obtained. FINDINGS: No significant abnormality is noted involving the heart, lungs, mediastinum, bony thorax or soft tissues. XR/XR chest 2V IMPRESSION: No acute disease Electronically signed by: Laci Agarwal MD 03/03/2025 01:10 PM EDT RP
[2025-03-03 12:39] VITALS: BP 154/76; PULSE 54; RESP 16; TEMP 36.6; O2SAT 99
--- NOTE | 2025-03-03 12:41 | ED.CHESTPAIN ---
HPI - Chest Pain General Chief Complaint: Chest Pain Stated Complaint: Numbness L arm, nausea Time Seen by Provider: 03/03/25 16:01 Source: patient Mode of arrival: ambulatory Limitations: no limitations History of Present Illness ED Provider: Dr. Zavala HPI narrative: 34-year-old male history of hypertension hyperlipidemia presented hospital today for sudden onset of left-sided chest pain that radiates to his left arm. Patient stated that this lasted briefly and self-resolved. He is no longer having any active chest pain at this time. In the moment he did feel some shortness of breath and palpitation. Denies any recent illness. Denies any coughing. Related Data Previous Rx's ?Medication ?Instructions ?Recorded ibuprofen 600 mg tablet 600 mg PO Q8H PRN pain #30 tabs 02/08/23 albuterol sulfate 90 mcg/actuation 1 inh inhalation Q6-8H PRN 03/18/23 breath activated powder inhaler shortness of breath or wheezing #1 ea cholecalciferol (vitamin D3) 50 50 mcg PO DAILY 90 days #90 caps 11/25/23 mcg (2,000 unit) capsule melatonin 10 mg capsule 10 mg PO BEDTIME PRN sleep 30 days 05/26/24 #30 caps escitalopram oxalate 10 mg tablet 10 mg PO DAILY 30 days #30 tabs 07/07/24 loratadine 10 mg tablet 10 mg PO DAILY PRN for allergies 12/09/24 #90 tabs fluticasone propionate 50 1 spray intranasal DAILY PRN 01/05/25 mcg/actuation nasal allergy symptoms 30 days #16 grams spray,suspension valacyclovir 1 gram tablet 1,000 mg PO TID 7 days #21 tabs 02/06/25 gabapentin 100 mg capsule 100 mg PO BID #60 caps 02/08/25 lisinopril 5 mg tablet 5 mg PO DAILY #30 tabs 02/15/25 Allergies Allergy/AdvReac Type Severity Reaction Status Date / Time diclofenac (DICLOFENAC) Allergy Unknown SHORTNESS Verified 03/03/25 12:42 OF BREATH Review of Systems Review of Systems: Pertinent review of systems as mentioned in [facility]. All other system otherwise negative. [facility] Past Medical History [facility] Narrative: Medical history as mentioned in [facility] Medical History Obesity (BMI 30-39.9) Vitamin D deficiency Depression GERD without esophagitis Impaired fasting glucose Elevated LFTs Pure hypercholesterolemia Exertional dyspnea Allergic rhinitis Environmental allergies Surgical History Perineal abscess Family History Family History Mother History of thyroid cancer History of hypertension History of diabetes mellitus Social History Social History Housing: House Alcohol intake: current Alcohol intake frequency: holidays/special occasions only Alcohol type: beer and wine Patient Tobacco Use Status: Former Tobacco user e-Cigarette/Vaping Use: Never Used Second Hand Smoke Exposure: Yes Advance Directives: No Advance Directives Information Provided: Yes Do you have a plan to hurt others: No Plan service: No Current occupational status: employed 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: No Hearing needs: No Vision needs: No Physical Exam Exam: Exam: General: Pleasant, no distress, interacting appropriately Head: Normacephalic, atraumatic ENT: oral mucosa moist, neck supple, no tracheal deviation Cardiovascular: regular rate, regular rhythm, no murmurs, rubbing, gallops Respiratory: CTAB, no wheeze, rales, rhonchi Gastrointestinal: Soft, non distended, non tender, non guarding Extremities: No limb pain or swelling, no calf tenderness Neurological: Awake and alert, no facial droop noted Skin: Warm and dry Psychiatric: Appropriate mood and thoughts Vital Signs: Vital Signs: Last Vital Signs Temp 97.8 F 03/03/25 12:39 Pulse 54 03/03/25 12:39 Resp 16 03/03/25 12:39 BP 154/76 H 03/03/25 12:39 Pulse Ox 99 03/03/25 12:39 O2 Del Method Room Air 03/03/25 12:39 BMI result Body Mass Index 30.0 Course Course Course Narrative: This is an RME: Additional HPI, ROS, PE not included below will be deferred to primary provider. RME assessment and note performed by: Verna Mancini PA-C This is a [id number]-male who presents to the ER with a complaints of numbness to left arm, nausea x 1 hour. He reports that while he was working he felt numbness and tingling in his left arm with the nausea. He also reports chest pressure for the last hour. He also reports history of anxiety. Plan: Labs, EKG, xray Medical Decision Making Medical Decision Making [facility] Narrative: 34-year-old male presented hospital today for evaluation of an episode of chest pain that has resolved. He has history of hypertension hyperlipidemia Based on patient's initial troponin his heart score is 2. He is score 1 for left bundle branch 1 for risk factors. Patient is low risk. Patient's EKG does shows a developing left bundle branch block. He does not have any history of cardiac problem in the past. He is asymptomatic at this time. No sign of STEMI. First troponin is negative. Chest x-ray is unremarkable pending 2nd troponin at this time. Second troponin is negative. Low heart score. Patient will be discharged Differential Diagnosis Differential Diagnoses: The differential diagnosis associated with the presentation includes ACS, CAD, SVT, tachycardia, STEMI Admission/Observation Consideration of admission/observation: Escalation of care including admission/observation considered Lab Data [facility] Lab Attestation statement: I reviewed the patient's lab results. 03/03/25 12:51 03/03/25 12:51 Labs: Lab Results 03/03/25 03/03/25 Range/Units 12:51 15:56 WBC 9.4 (4.8-10.8) X10*3/uL RBC 4.96 (4.60-5.80) X10*6/uL Hgb 14.2 (14.0-18.0) g/dl Hct 41.9 L (42.0-52.0) % MCV 84.5 (80.0-98.0) fL MCH 28.6 (27.0-33.0) pg MCHC 33.9 (31.0-36.0) g/dl RDW 12.9 (11.0-16.0) % Plt Count 278 (160-400) X10*3/uL MPV 11.3 (9.4-12.4) fL Immature Gran % (Auto) 0.2 (0.0-0.4) % Neut % (Auto) 61.6 (45-73) % Lymph % (Auto) 30.1 (20-40) % Aurora % (Auto) 5.0 (2-11) % Eos % (Auto) 2.1 (0-4) % Baso % (Auto) 1.0 (0-2) % Lymph # (Auto) 2.8 (1.2-4.9) X10*3/uL Aurora # (Auto) 0.5 (0.1-1.2) X10*3/uL Eos # (Auto) 0.2 (0.0-0.4) X10*3/uL Baso # (Auto) 0.1 (0.0-0.2) X10*3/uL Abs Immat Gran (auto) 0.02 (0.00-0.03) X10*3/uL Absolute Neuts (auto) 5.8 (2.0-8.3) x10*3/uL Absolute Nucleated RBC 0.000 (0.0-0.012) X10*3/uL Nucleated RBC % (auto) 0.0 (0.0-0.2) /100WBC Sodium 139 (135-145) mmol/L Potassium 4.0 (3.3-5.1) mmol/L Chloride 104 (96-108) mmol/L Carbon Dioxide 28 (22-29) mmol/L Anion Gap 11 L (12-20) BUN 16 (9-16) mg/dL Creatinine 0.90 (0.5-1.4) mg/dL Estim Creat Clear Calc 147.1 Estimated GFR > 60 Random Glucose 94 (60-115) mg/dL Calcium 9.6 (8.4-10.2) mg/dL Magnesium 2.0 (1.6-2.6) mg/dL Total Bilirubin 0.6 (0.0-1.0) mg/dL Direct Bilirubin 0.2 (0.0-0.5) mg/dL AST 43 H (5-37) U/L ALT 64 H (0-40) U/L Alkaline Phosphatase 83 (39-117) U/L Troponin I High Sens < 2.7 < 2.7 (<3.5-35.0) ng/L Total Protein 8.2 H (6.5-8.0) g/dL Albumin 4.9 (3.5-5.0) g/dL Independent Interpretation I performed an independent interpretation of an: EKG and Plain X-Ray Radiology Impression Discussion of test interpretation with radiology: I have reviewed the radiologist's reading. Scores Heart Score History: -0- slightly suspicious ECG: -1- non specific repolarization disturbance Age: -0- < or = 45 Risk factory: -1- 1 or 2 risk factors Troponin: -0- < or = normal limit Score: 2 Risk: 1.7% Discharge Plan Discharge Clinical Impression: Atypical chest pain Patient Disposition: Home, Self-Care Instructions: Chest Pain (ED) Additional Instructions: EKG does show signs of a developing left bundle branch block please follow up with your primary care doctor. Troponin is negative x2. Chest X ray is normal. Prescriptions: No Action escitalopram oxalate 10 mg tablet 10 mg PO DAILY 30 Days Qty: 30 5RF loratadine 10 mg tablet 10 mg PO DAILY PRN (Reason: for allergies) Qty: 90 1RF fluticasone propionate 50 mcg/actuation spray,suspension 1 spray intranasal DAILY PRN (Reason: allergy symptoms) 30 Days Qty: 16 5RF gabapentin 100 mg capsule 100 mg PO BID Qty: 60 0RF ibuprofen 600 mg tablet 600 mg PO Q8H PRN (Reason: pain) Qty: 30 0RF valacyclovir 1 gram tablet 1,000 mg PO TID 7 Days Qty: 21 0RF cholecalciferol (vitamin D3) 50 mcg (2,000 unit) capsule 50 mcg PO DAILY 90 Days Qty: 90 3RF albuterol sulfate 90 mcg/actuation aerosol powdr breath activated 1 inh inhalation Q6-8H PRN (Reason: shortness of breath or wheezing) Qty: 1 1RF melatonin 10 mg capsule 10 mg PO BEDTIME PRN (Reason: sleep) 30 Days Qty: 30 5RF lisinopril 5 mg tablet 5 mg PO DAILY Qty: 30 3RF Stand Alone Forms: Work/School Release Print Language: Surinamese
--- NOTE | 2025-03-03 12:42 | ECG_ITS ---
Test Reason : chest pain Blood Pressure : */* mmHG Vent. Rate : 51 BPM Atrial Rate : 51 BPM P-R Int : 184 ms QRS Dur : 114 ms QT Int : 390 ms P-R-T Axes : 38 12 30 degrees QTcB Int : 359 ms Sinus bradycardia Otherwise normal ECG No previous ECGs available Referred By: Verna Mancini Electronically Signed By: Wilberto Alex
[2025-03-03 12:56] LABS: MANUAL DIFF FLAG NO
[2025-03-03 12:59] LABS: Hematocrit 41.9 % (42.0-52.0); Hemoglobin 14.2 g/dl (14.0-18.0); Imm Gran Abs Auto 0.02 X10*3/uL (0.00-0.03); Imm Gran Pct Auto 0.2 % (0.0-0.4); Lymphocytes Absolute Auto 2.8 X10*3/uL (1.2-4.9); Mean Corpuscular HGB Conc 33.9 g/dl (31.0-36.0); Mean Corpuscular Hemoglobin 28.6 pg (27.0-33.0); Mean Corpuscular Volume 84.5 fL (80.0-98.0); NRBC Abs Auto 0.000 X10*3/uL (0.0-0.012); NRBC Pct Auto 0.0 /100WBC (0.0-0.2); Platelet Count 278 X10*3/uL (160-400); Red Blood Count 4.96 X10*6/uL (4.60-5.80); White Blood Count 9.4 X10*3/uL (4.8-10.8)
[2025-03-03 13:17] LABS: Alanine Aminotransferase 64 U/L (0-40); Albumin Level 4.9 g/dL (3.5-5.0); Alkaline Phosphatase 83 U/L (39-117); Anion Gap 11 (12-20); Aspartate Amino Transferase 43 U/L (5-37); Blood Urea Nitrogen 16 mg/dL (9-16); Calcium 9.6 mg/dL (8.4-10.2); Carbon Dioxide 28 mmol/L (22-29); Chloride 104 mmol/L (96-108); Creatinine Clr Calc Pharmacy 147.1; Estimated Glomerular Filt Rate > 60; Magnesium 2.0 mg/dL (1.6-2.6); Potassium 4.0 mmol/L (3.3-5.1); Sodium 139 mmol/L (135-145); Total Protein 8.2 g/dL (6.5-8.0)
[2025-03-03 13:22] LABS: Troponin-I High Sensitivity < 2.7 ng/L (<3.5-35.0)
[2025-03-03 16:21] LABS: Troponin-I High Sensitivity < 2.7 ng/L (<3.5-35.0)
--- OUTSIDE RECORDS SUMMARY | 2025-03-03 17:37 | XMS_ITS | Encounter Summary ---
Author Organization [employer] Address [address] [facility] [address] [place] [address] Care Team Providers Care Audio Visual Aids Director Name Role Phone Kandi Navarrete MD Primary Care Provider [phone] Encounter Details Date Type Department Care Team (Late st Contact Info) Description 07/11/2022 Orders Only [facility] MED & PEDS [address] [place] [address] Brigitte Moore LPN Social History Tobacco Use [...] on filedocumented in this encounter Care Teams Audio Visual Aids Director Relationship Specialty Start Date End Date Kandi Navarrete MD [address] [place] [id number] PCP - General Family Medicine 11/11/13 06/19/23 documented as of this encounter
--- OUTSIDE RECORDS SUMMARY | 2025-03-03 17:37 | XMS_ITS | Encounter Summary ---
Author Organization [employer] Address [address] [facility] [address] [place] [address] Care Team Providers Care Manager Medicare Marketing Name Role Phone Kandi Navarrete MD Primary Care Provider [phone] Encounter Details Date Type Department Care Team (Late st Contact Info) Description 09/25/2022 Orders Only [facility] CHC MED & PEDS [address] [place] [address] Brigitte Moore LPN Social History Tobacco Use [...] on filedocumented in this encounter Care Teams Manager Medicare Marketing Relationship Specialty Start Date End Date Kandi Navarrete MD [address] [place] [id number] PCP - General Family Medicine 11/11/13 06/19/23 documented as of this encounter
--- OUTSIDE RECORDS SUMMARY | 2025-03-03 17:38 | XMS_ITS | Clinical Summary ---
Author Organization [employer] Address [address] [facility] [address] [place] [address] Care Team Providers Care Access Manager Name Role Phone Unavailable Primary Care [...] [facility] Comment: Desirable LDL: less than [...] >60 [facility] Comment: NOTE: For -Botswanan individuals, multiply the result by 1.210. Chronic Kidney Disease: Estimated GFR < 60 mL/min/1.73m2 Severe Kidney Disease: Estimated GFR < 15 mL/min/1.73m2 Glucose Fasting 106(H) 60 - 99 mg/dL [facility] Comment: A fasting glucose from 100-125 mg/dl is considered impaired (pre-diabetes). Potassium 4.5 3.3 - 5.1 mmol/l [facility] Sodium 138 135 - 145 mmol/L [facility] Total Protein 8.4(H) 6.5 - 8.0 g/dL [facility] 05/13/2020 8:50 AM EST us Kandi Navarrete MD HISTORICAL/NON ORDERABLE LABS Fi nal Result [facility] Anywhere [address] from Last 3 Months or Most Recently Relevant to Health Maintenance
[2025-03-03 17:53] VITALS: BP 125/75; PULSE 56; RESP 16; TEMP 36.6; O2SAT 99
== END 2025-03-03 17:57 | disposition home or self-care (01) ==
PROVIDERS: Physician Assistant Medical; Emergency Provider Student in an Organized Health Care Education/Training Program; PCP Internal Medicine
DX: R07.89 Other chest pain (principal); R20.0 Anesthesia of skin; R11.0 Nausea; M79.602 Pain in left arm; R06.02 Shortness of breath
CPT/HCPCS: 36415; 71046; 80048; 80076; 83735; 84484; 85025; 93005; 99283; 99284

== ENCOUNTER → 2025-03-03 12:42 | Outpatient (BNV) | payer BC, SELFPAY | PROVIDERS: PCP Internal Medicine; Visit Provider Radiology Diagnostic Radiology | DX: R07.9 Chest pain, unspecified (principal) | CPT/HCPCS: 71046 ==

== ENCOUNTER → 2025-03-03 12:42 | Outpatient (BNV) | payer BC, SELFPAY | PROVIDERS: Emergency Provider Student in an Organized Health Care Education/Training Program; PCP Internal Medicine; Visit Provider Internal Medicine Cardiovascular Disease | DX: R00.1 Bradycardia, unspecified (principal) | CPT/HCPCS: 93010 ==

== ENCOUNTER 2025-03-11 16:24 | Outpatient (AMB) | payer BC, SELFPAY ==
[2025-03-11 16:28] VITALS: BP 122/68; PULSE 60; RESP 18; TEMP 36.2; O2SAT 97; BMI 29.7
--- NOTE | 2025-03-11 16:28 | MHC.PC.OV ---
Vital Signs 03/11/25 16:28 Height 6 ft 2 in Weight 231 lb 8 oz BMI 29.7 BP 122/68 Blood Pressure Location Lt brachial Position Sitting Respiration 18 Pulse 60 Pulse Source Pulse Oximeter Temp 97.1 F Temp Source Temporal Artery Scan Pulse Oximetry (%) 97 Oxygen Delivery Method Room Air Intake Visit Reasons: [facility] 03/03 LT arm pain Ride Attendant Required: Yes Ride Attendant Language: Belizean Accompanied by: Self / Same As Patient Allergies diclofenac (DICLOFENAC) Allergy (Unknown, Verified 03/11/25 16:30) SHORTNESS OF BREATH Tobacco use date assessed: 03/11/25 Dental Screening Dental Screen Date: 03/11/25 Did you have a dental visit in the last 12 months?: No Did you have a dental problem in the last 6 months where you did not have access to dental care?: No Was dental information given to patient?: No HPI HPI Comments History of Present Illness Details 34 y/o Male patient who presents to the clinic today for EDF. Pt was admitted to [facility] on 03/03 for an evaluation and treatment for Atypical Chest Pains. ECG done in the ED showed LBBB. Pt does have h/o Anxiety and he stopped taking his medication. He is prescribed Escitalopram but he does not take it everyday as prescribed. Pt works in a Toxic work place - he is under lots of Stress everyday. Denies SA or SI. Pt asking for Mental Health Therapy. [facility] Medical History (Updated 03/11/25 @ 17:22 by Merly Vázquez NP) Chest pain Obesity (BMI 30-39.9) Vitamin D deficiency Depression GERD without esophagitis Impaired fasting glucose Elevated LFTs Pure hypercholesterolemia Exertional dyspnea Allergic rhinitis Environmental allergies Surgical History Perineal abscess Family History Mother History of thyroid cancer History of hypertension History of diabetes mellitus Social History Housing: House Alcohol intake: current Alcohol intake frequency: holidays/special occasions only Alcohol type: beer and wine Patient Tobacco Use Status: Former Tobacco user e-Cigarette/Vaping Use: Never Used Second Hand Smoke Exposure: Yes service: No Current occupational status: employed 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: No Hearing needs: No Vision needs: No Questionnaire Thrive Questionnaire Date Thrive assessed: 01/04/25 I am a: Patient What is your living situation today?: I have a steady place to live Within the past 12 months, did the food you bought not last and you didn't have the money to get more?: I choose not to answer this question Within the past 12 months, did you worry whether your food would run out before you got money to buy more?: I choose not to answer this question Do you have trouble paying for medicines?: I choose not to answer this question Do you have trouble getting transportation to medical appointments?: No Do you have trouble paying your heating and electricity bill?: I choose not to answer this question Do you have trouble taking care of your child, family member or friend?: I choose not to answer this question Do you have trouble with day-to-day activities such as bathing, preparing meals, shopping, managing finances, etc.?: I choose not to answer this question Are you currently unemployed and looking for a job?: No Are you interested in more education?: I choose not to answer this question Please select the resources that you would like help with: None Currently or been in a relationship where the following occur: I choose not to answer THRIVE Score: 0 DIPIKA-7 AMB Questionnaire DIPIKA-7 Date DIPIKA - 7 assessed: 02/15/25 Source: Developed by Drs. Peter Dial, Nan Hines, Jagjit Baldwin and colleagues, with an educational shahla from [employer]. Review of Systems Const All systems reviewed & are unremarkable except as noted in HPI and below Physical exam (Primary Care) Vital Signs: Last Vital Signs Temp 97.1 F 03/11/25 16:28 Pulse 60 03/11/25 16:28 Resp 18 03/11/25 16:28 BP 122/68 03/11/25 16:28 Pulse Ox 97 03/11/25 16:28 Oxygen Delivery Method Room Air 03/11/25 16:28 BMI result Body Mass Index 29.7 Tobacco/Smoking Status: Tobacco use Status Tobacco use date assessed 03/11/25 03/11/25 16:35 Patient Tobacco Use Status Former Tobacco user 03/11/25 16:35 e-Cigarette/Vaping Use Never Used 03/11/25 16:35 Thrive Assessment: Date of Thrive Assessment Date Thrive assessed 01/04/25 03/11/25 16:35 Currently or been in a relationship where the following occur: I choose not to answer Const General: no acute distress Orientation/consciousness: patient oriented x3 Resp Effort & Inspection: normal respiratory effort Auscultation: clear to auscultation bilaterally Cardio Heart sounds: S1 normal heart sound present and S2 normal heart sound present Neuro General: patient oriented x3, gait normal and moves all extremities Psych Speech and movement: Normal speech and movement present Affect: Anxious affect present Coding Level of Care Code Est Pt Level 4 (04210) Diagnoses Chest pain R07.9 Anxiety F41.9 Time Spent (min) 20 Assessment & Plan Assessment & Plan (1) Chest pain: Code(s): R07.9 - Chest pain, unspecified Category: Medical Plan: Resolved Probably Anxiety related - Pt works in a very toxic work environment. Advised to reduce Stress - if he has to switch Jobs ECG in the ED Showed LBBB - will refer Patient to cardiology for further evaluation. (2) Anxiety: Code(s): F41.9 - Anxiety disorder, unspecified Category: Medical Plan: Advised Pt to take his Escitalopram as prescribed. Will refer for Therapy. Orders: Referrals Cardiology Referral R07.9 - Chest pain, unspecified
--- OUTSIDE RECORDS SUMMARY | 2025-03-11 16:28 | XMS_ITS | Clinical Summary ---
Author Organization [employer] Address [address] [facility] [address] [place] [address] Care Team Providers Care Recycling Sorter Name Role Phone Unavailable Primary Care Provider [...] disease. LDL Cholesterol Calculated 186 mg/dl [facility] Comment: Desirable LDL: less than [...] T4 3.28 0.32 - 4.0 mIU/mL [facility] Comment:TSH 3rd Generation ( Nieto [...] >60 [facility] Comment: NOTE: For -Kazakh individuals, multiply the result by 1.210. Chronic Kidney Disease: Estimated GFR < 60 mL/min/1.73m2 Severe Kidney Disease: Estimated GFR < 15 mL/min/1.73m2 Glucose Fasting 106(H) 60 - 99 mg/dL [facility] Comment: A fasting glucose from 100-125 mg/dl is considered impaired (pre-diabetes). Potassium 4.5 3.3 - 5.1 mmol/l [facility] Sodium 138 135 - 145 mmol/L [facility] Total Protein 8.4(H) 6.5 - 8.0 g/dL [facility] 05/13/2020 8:50 AM EST us Kandi Navarrete MD HISTORICAL/NON ORDERABLE LABS Fi nal Result [facility] Anywhere [address] from Last 3 Months or Most Recently Relevant to Health Maintenance
--- OUTSIDE RECORDS SUMMARY | 2025-03-11 16:28 | XMS_ITS | Encounter Summary ---
Author Organization [employer] Address [address] [facility] [address] [place] [address] Care Team Providers Care Home Energy Inspector Name Role Phone Kandi Navarrete MD Primary Care Provider [phone] Encounter Details Date Type Department Care Team (Late st Contact Info) Description 07/11/2022 Orders Only [facility] CHC MED & PEDS [address] [place] [address] Brigitte Moore LPN Social History Tobacco Use [...] on filedocumented in this encounter Care Teams Home Energy Inspector Relationship Specialty Start Date End Date Kandi Navarrete MD [address] [place] [id number] PCP - General Family Medicine 11/11/13 06/19/23 documented as of this encounter
--- OUTSIDE RECORDS SUMMARY | 2025-03-11 16:28 | XMS_ITS | Encounter Summary ---
Author Organization [employer] Address [address] [facility] [address] [place] [address] Care Team Providers Care Data Analyst Name Role Phone Kandi Navarrete MD Primary Care Provider [phone] Encounter Details Date Type Department Care Team (Late st Contact Info) Description 09/25/2022 Orders Only [facility] CH[facility] MED & PEDS [address] [place] [address] Brigitte Moore LPN Social History Tobacco Use [...] on filedocumented in this encounter Care Teams Data Analyst Relationship Specialty Start Date End Date Kandi Navarrete MD [address] [place] [phone] PCP - General Family Medicine 11/11/13 06/19/23 documented as of this encounter
== END 2025-03-11 17:29 | disposition home or self-care (01) ==
LOC: HO.HMCH 16:25
PROVIDERS: PCP Internal Medicine; Visit Provider Nurse Practitioner Family
DX: R07.9 Chest pain, unspecified (principal); F41.9 Anxiety disorder, unspecified

== ENCOUNTER 2025-05-25 14:55 | Outpatient (AMB) | payer BC, SELFPAY ==
[2025-05-25 15:04] VITALS: BP 130/82; PULSE 57; O2SAT 97; BMI 26.2
--- NOTE | 2025-05-25 15:04 | A.OFFVIS_ITS ---
Vital Signs 05/25/25 15:04 Height 6 ft 2 in Weight 204 lb 6 oz BMI 26.2 BP 130/82 Blood Pressure Location Lt brachial Position Sitting Pulse 57 Pulse Source Pulse Oximeter Pulse Oximetry (%) 97 Oxygen Delivery Method Room Air Intake Visit Reasons: 3 mnts f/u Intake Note: Patient presents follow up TAL. Compliance in chart(days, >=4hrs-7%, Average Usage-28min, Pressure-7cm, Med Leaks-0.2, AHI-5.9). Legal Executive Assistant Required: Yes Legal Executive Assistant Language: Sawmill [employer] Services: Legal Executive Assistant Present Legal Executive Assistant Name: Thomas [id number] Information Interpreted: non-clinical & clinical Accompanied by: Self / Same As Patient Allergies diclofenac (DICLOFENAC) Allergy (Unknown, Verified 05/25/25 15:11) SHORTNESS OF BREATH HPI Comments Details: 34 year old male with h/o deviated septum, presents for a f/u visit of severe tal. Sawmill Hand on IPAD helps with history. 08/04/2024 HST c/w severe tal the AHI is 42.5 O2 Nadirs to 76%, pt underwent a sleep titration study to determine ideal pressures. 08/17/2024 Sleep titration study completed, pressures were adjusted to 9cmH20, breathing and oxygen stabilized. TAL compliance Report 02/2025 to 05/2025 reviewed with pt. days and >4hours is 7% and average use 28 min. Press 7cmH20 leaks are 0.2/min with AHI of 5.9/hr. He washes his mask, rinses hoses, changes filters and fills reservoir with water. Pt had shingles in January 2025 and could not sleep with the cpap due to the break out on his neck and back, causing extreme discomfort. Patient states he notices a forceful airflow when falling asleep. He feels he is short of breath. We discussed adjusting his EPR, pressures by 1 cmH20 and checking in 2 weeks for comfort level when falling asleep. He pulls the mask off his face since he feels he is unable to tolerate the pressures. We also changed out the mask and he really likes his new mask and can better tolerate the pressures now, as he understands the severity of untreated sleep apnea, he agrees to continue to use his mask with increased duration at night. He feels congested and can not get enough air into the nose. He has tried to use the humidification setting on the machine and condensation was filling the mask. He has tried using eucalyptus Vicks vapor stick and ointment rub. R side >L feels more irritated despite trial of saline rinses fluticasone, loratidine for allergies to pollen and dust. He does notice his headaches and snoring has improved, since he started using the cpap, he no longer dozes off for naps during the daytime.He gets anxious when he has anxiety with panic attacks though denies symptoms of depression, and elevated mood, he is on 10mg of Escitalopram. ENT evaluation did not reveal septum deviations, nasal polyps or cysts. Significant pt education is provided today re compliance with use of cpap and cardio vascular complications due to untreated sleep patient eduction is provided today re: use of cpap and the importance of com pliance given risk factors of cardiovascular complications and fh of dementia, with stroke. [facility] Medical History Chest pain Obesity (BMI 30-39.9) Vitamin D deficiency Depression GERD without esophagitis Impaired fasting glucose Elevated LFTs Pure hypercholesterolemia Exertional dyspnea Allergic rhinitis Environmental allergies Surgical History Perineal abscess Family History Mother History of thyroid cancer History of hypertension History of diabetes mellitus Social History Housing: House Alcohol intake: current Alcohol intake frequency: holidays/special occasions only Alcohol type: beer and wine Patient Tobacco Use Status: Former Tobacco user e-Cigarette/Vaping Use: Never Used Second Hand Smoke Exposure: Yes service: No Current occupational status: employed 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: No Hearing needs: No Vision needs: No Review of Systems ENT Reports Normal hearing present Neuro Reports Normal hearing present Physical Exam Vital Signs: Last Vital Signs Pulse 57 05/25/25 15:04 BP 130/82 05/25/25 15:04 Pulse Ox 97 05/25/25 15:04 Oxygen Delivery Method Room Air 05/25/25 15:04 BMI result Body Mass Index 26.2 Const General: cooperative, comfortable and no acute distress Nutritional Appearance: average body habitus Orientation/consciousness: patient oriented x3 Eyes Pupils: Equal, round and reactive pupils present Neck Neck: Yes full ROM and Yes supple Resp Effort & Inspection: normal respiratory effort and able to speak in complete sentences Neuro General: patient oriented x3 and moves all extremities Cranial nerves: Yes CN's II-XII intact bilaterally, Yes Facial sensation intact/muscles of mastication intact, Yes Equal, round and reactive pupils present, Yes Normal accommodation reflex present, Yes Bilaterally intact EOM present, Yes Nystagmus not present, Yes Normal facial strength present, Yes Midline tongue present, Yes Normal hearing present, Yes Ability to bilaterally rotate head present and Yes Ability to bilaterally elevate shoulders present Gait exam (Neuro): Normal gait present Motor exam (neuro): 5/5 motor strength present throughout and Normal motor muscle tone present throughout Psych Appearance: grossly normal Mental Status: mental status grossly normal Thought process: Normal thought process present Insight: Good insight present (Psych) Results Reviewed Results Reviewed: HST reviewed with pt. PSG with inlab titration reviewed with pt. Labs reviewed with pt. Assessment & Plan Assessment & Plan (1) TAL on CPAP: Code(s): G47.33 - Obstructive sleep apnea (adult) (pediatric) Category: Medical (2) History of deviated nasal septum: Code(s): Z87.09 - Personal history of other diseases of the respiratory system Category: Medical (3) Fatigue due to sleep pattern disturbance: Code(s): R53.83 - Other fatigue; G47.9 - Sleep disorder, unspecified Category: Medical (4) Anxiety: Code(s): F41.9 - Anxiety disorder, unspecified Category: Medical Plan Severe TAL Compliance is emphasized for 6-8 hours a night, pressures titrated to 9cm H20 on 08/17/2024. if pressures are too high you may adjust the EPR pressures by 1 -2cm H20, in the settings and will f/u on portal message do not wait. Changed to Airfit N20 mask full face, nasal pillows were not comfortable. [place] mask with swivel top hoses now. Labs reviewed with patient today continue vit d. Panic attacks, Anxiety continue taking Escitalopram. Difficulty falling asleep continue with melatonin 10mg at bedtime, declines BZRA or sleep aid today. ENT did not note any difficulties with polyps, cysts, septal deviation. Re: inspire education provided, as pt may be a good candidate. F/U in 3 months Patient Instructions: Cardiovascular risks and complications of untreated sleep apnea is reviewed with pt today, given fh + stroke and [place]. Pt education re: pahtophysiology of sleep apnea and lack of oxygenation causing apneas/ hypopneas, which lead to HR fluctuations, mood irritabled due to fatigue and anxiety disorders. Coding Level of Care Code Est Pt Level 4 (56604) Diagnoses TAL on CPAP G47.33 History of deviated nasal septum Z87.09 Fatigue due to sleep pattern disturbance R53.83; G47.9 Anxiety F41.9
--- OUTSIDE RECORDS SUMMARY | 2025-05-25 19:54 | XMS_ITS | Encounter Summary ---
Author Organization [employer] Address [address] [facility] [address] [place] [address] Care Team Providers Care Account Development Executive Name Role Phone Kandi Navarrete MD Primary Care Provider [phone] Encounter Details Date Type Department Care Team (Late st Contact Info) Description 07/11/2022 Orders Only [facility] [address] [place] [address] Brigitte Moore LPN Social History Tobacco Use [...] filedocumented in this encounter Care Teams Account Development Executive Relationship Specialty Start Date End Date Kandi Navarrete MD [address] [place] [id number] PCP - General Family Medicine 11/11/13 06/19/23 documented as of this encounter
--- OUTSIDE RECORDS SUMMARY | 2025-05-25 19:54 | XMS_ITS | Encounter Summary ---
Author Organization [employer] Address [address] [facility] [address] [place] [address] Care Team Providers Care Cushion Cover Inspector Name Role Phone Kandi Navarrete MD Primary Care Provider [phone] Encounter Details Date Type Department Care Team (Late st Contact Info) Description 09/25/2022 Orders Only [facility] [address] [place] [address] Brigitte Moore LPN Social History Tobacco Use [...] on filedocumented in this encounter Care Teams Cushion Cover Inspector Relationship Specialty Start Date End Date Kandi Navarrete MD [address] [place] [id number] PCP - General Family Medicine 11/11/13 06/19/23 documented as of this encounter
--- OUTSIDE RECORDS SUMMARY | 2025-05-25 19:54 | XMS_ITS | Clinical Summary ---
Author Organization [employer] Address [address] 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 Chronic [...] Result [facility] Anywhere [address] from Last 3 Months or Most Recently Relevant to Health Maintenance
== END 2025-05-25 15:49 | disposition home or self-care (01) ==
LOC: HO.HSMC 14:56
PROVIDERS: PCP Internal Medicine; Visit Provider Physician Assistant Medical
DX: G47.33 Obstructive sleep apnea (adult) (pediatric) (principal); Z87.09 Personal history of other diseases of the respiratory system; R53.83 Other fatigue; G47.9 Sleep disorder, unspecified; F41.9 Anxiety disorder, unspecified
CPT/HCPCS: 99214